=== PATIENT | female | born 2000 | race Caucasian/White ===

== ENCOUNTER 2021-01-27 17:08 | Emergency (ER) | payer OTHER, SELFPAY ==
[2021-01-27 17:08] VITALS: BP 111/83; PULSE 84; RESP 16; TEMP 36.1; O2SAT 96
--- NOTE | 2021-01-27 17:29 | DI.RAD.S_ITS ---
PROCEDURE: XR FOOT RT 2V INDICATIONS: knee gave out and now both right knee and right foot hurt TECHNIQUE: 3 views of the foot were acquired. COMPARISON: [facility], CR, XR KNEE RT 3V, 01/27/2021, 17:30. FINDINGS: Bones: No fractures or dislocations. No suspicious bony lesions. Soft tissues: No tibiotalar joint effusion. Achilles tendon appears normal. IMPRESSION: Normal. Dictated by: Tomer Ham M.D. on 01/27/2021 at 16:47 Approved by: Tomer Ham M.D. on 01/27/2021 at 16:48
--- NOTE | 2021-01-27 17:29 | DI.RAD.S_ITS ---
PROCEDURE: XR KNEE RT 3V INDICATIONS: knee gave out and now both right knee and right foot hurt TECHNIQUE: 3 views of the knee were acquired. COMPARISON: None. FINDINGS: Bones: No fractures or dislocations. No suspicious bony lesions. Soft tissues: There is a small joint effusion. No suspicious soft tissue calcifications. IMPRESSION: Small joint effusion, without a focal bony abnormality seen. If it would be helpful for clinical management decision making, please consider a dedicated, scheduled knee MRI for further evaluation (assuming that there is no contraindication). Dictated by: Tomer Ham M.D. on 01/27/2021 at 16:46 Approved by: Tomer Ham M.D. on 01/27/2021 at 16:47
--- NOTE | 2021-01-27 18:47 | ED_ITS ---
HPI - Extremity Injury (Lower) General Chief Complaint: Extremity Injury, Lower Stated Complaint: RIGHT KNEE AND FOOT PAIN Time Seen by Provider: 01/27/21 17:58 Source: patient Mode of arrival: Ambulatory History of Present Illness HPI Narrative: 20F nonsmoker presents with her significant other and a chief complaint of right knee and foot pain since injuring herself on Thursday. She states that she was squatting down doing laundry and upon standing up felt pain in her right knee in 1 to stepped awkwardly and felt increasing pain when her leg gave. She also injured the right lateral side of her foot during this incident. Since then she has had pain with ambulation over her lateral foot and pain in her lateral knee with occasional popping with ambulation. She denies any numbness, tingling or weakness. She denies any sensation of instability of her knee. She denies other injury nor history of the same. Related Data Allergies Allergy/AdvReac Type Severity Reaction Status Date / Time sumatriptan Allergy Unknown Verified 01/27/21 17:49 Review of Systems Review of Systems Narrative: GENERAL: Denies chills, fatigue, malaise, fever, sweats. HEENT: Denies sinus pain, ear pain, sore throat, difficulty swallowing, dizziness. RESPIRATORY: Denies dyspnea, cough, wheezing, hemoptysis, sputum. CARDIOVASCULAR: Denies chest pain, palpitations, orthopnea, edema, GASTROINTESTINAL: Denies nausea, vomiting, abdominal pain, diarrhea, constipation, melena. : Denies dysuria, frequency, incontinence, hematuria, urinary retention. MUSCULOSKELETAL: See HPI SKIN: Denies rash, skin lesions, or other NEUROLOGIC: Denies weakness, headache, numbness, change in speech, confusion, seizures, incoordination. PSYCHIATRIC: No concerning psychosocial issues. 12 point review of systems is negative except for those stated above Patient History Social History Smoking Status: Never smoker Smoking Status: Never smoker Substance Use Type: does not use Exam Narrative Exam Narrative: GEN: AOx3 and in mild distress EYES: Pupils are equal, round, and reactive to light and accommodation. Extraoccular muscles are intact bilaterally. There is no subconjunctival hemorrhage or exudate. CHEST: Lungs are clear to auscultation bilaterally and free of wheezes, rales, or rhonchi. Heart rate is regular rhythm, there are no murmurs, clicks, rubs, or gallops. There is no chest wall tenderness. ABD: Abdomen is soft and nontender. There is no guarding or rebound. Bowel sounds are normal in all 4 quadrants. There is no mass or organomegaly. EXT: Full but painful range of motion of right knee without obvious deformity, effusion, warmth or erythema. No ligamentous instability noted. Majority of pain is lateral joint line. Greg's test worsens pain in lateral knee. No pain or swelling in calf, Achilles is intact. No pain with calf squeeze. She does have some pain with palpation along lateral foot but no swelling or ecchymosis. No numbness or tingling present SKIN: Warm, pink, and dry. No erythema or rash Initial Vital Signs Initial Vital Signs: Vital Signs Temperature 97.0 F L 01/27/21 17:08 Pulse Rate 84 01/27/21 17:08 Respiratory Rate 16 01/27/21 17:08 Blood Pressure 111/83 01/27/21 17:08 Pulse Oximetry 96 01/27/21 17:08 Procedures Orthopedic Splinting/Casting Injury #1: Side: right Lower Extremity Injury Location: foot Lower Extremity Immobilizer: post-op shoe Course Orders Ordered: ED Orders 01/27/21 17:29 XR foot RT 2V Stat XR knee RT 3V Stat Vital Signs Vital signs: Vital Signs - 8 hr 01/27/21 17:08 01/27/21 19:11 Temperature 97.0 F L Pulse Rate 84 81 Respiratory Rate 16 18 Blood Pressure 111/83 103/70 Pulse Oximetry 96 100 MDM - Extremity Injury (Lower) Imaging Data Extremity x-ray #1: Radiologist's Impression: [address] [address] XRay Report Signed Patient: Jennifer Colmenares MR#: [id number] : 2000 Acct:[id number] Age/Sex: 20 / F Date of Service: 01/27/21 Loc: ED Accession Number: [id number] ?? Procedure: XR foot RT 2V Ordering Provider: Real Tejada D.O. PROCEDURE:? XR FOOT RT 2V ? INDICATIONS:? knee gave out and now both right knee and right foot hurt ? TECHNIQUE:? 3 views of the foot were acquired.? ? COMPARISON:? [facility], CR, XR KNEE RT 3V, 01/27/2021, 17:30. ? FINDINGS:? ? Bones:? No fractures or dislocations.? No suspicious bony lesions.? ? Soft tissues:? No tibiotalar joint effusion.? Achilles tendon appears normal.? ? ? IMPRESSION:? Normal. ? ? Dictated by: Tomer Ham M.D. on 01/27/2021 at 16:47 ? ? Approved by: Tomer Ham M.D. on 01/27/2021 at 16:48 ? Extremity x-ray #2: Radiologist's Impression: Chart Viewer Diagnostics Subcategory All Activity ??:?? All Time ??:?? All Subcategories Filter Laboratory Imaging Microbiology Pathology Blood Bank Tests Cardiovascular Other Specialty DATE TYPE STATUS REF RANGE/AUTHOR Hx Today 17:29 Knee X-Ray Signed Tomer Ham Today 17:29 Foot X-Ray Signed Tomer Ham Jennifer Colmenares 20, F?2000 MRN#? [id number] DEP ER,?Main ED??? 68.946kg ? Extremity Injury, Lower Acc#? [id number] Resus Status Not Ordered No Hx Avail Special Indicators No Data to Display Home Meds Prescription Monitoring Program No Data to Display Allergies sumatriptan Problems ? ONSET Knee Injury Foot sprain Vital Signs Growth Chart Today 19:11 BP 103/70? Pulse 81? Resp 18? O2 Sat 100? Diagnostics Reports Jennifer Colmenares??20??F??2000 ? Allergy/Adv: sumatriptan Close Knee X-Ray (Signed) FatoumataTomer - 01/27/21 Foot X-Ray (Signed) Tomer Ham - 01/27/21 Launch?Image [address] [address] XRay Report Signed Patient: Jennifer Colmenares MR#: [id number] : 2000 Acct:[id number] Age/Sex: 20 / F Date of Service: 01/27/21 Loc: ED Accession Number: [id number] ?? Procedure: XR knee RT 3V Ordering Provider: Real Tejada D.O. PROCEDURE:? XR KNEE RT 3V ? INDICATIONS:? knee gave out and now both right knee and right foot hurt ? TECHNIQUE:? 3 views of the knee were acquired.? ? COMPARISON:? None. ? FINDINGS:? ? Bones:? No fractures or dislocations.? No suspicious bony lesions.? ? Soft tissues:? There is a small joint effusion.? No suspicious soft tissue calcifications.? ? ? IMPRESSION:? Small joint effusion, without a focal bony abnormality seen. ? If it would be helpful for clinical management decision making, please consider a dedicated, scheduled knee MRI for further evaluation (assuming that there is no contraindication).? ? ? Dictated by: Tomer Ham M.D. on 01/27/2021 at 16:46 ? ? Approved by: Tomer Ham M.D. on 01/27/2021 at 16:47 ? MDM Narrative Medical decision making narrative: Patient with very reassuring physical exam, no evidence of ligamentous rupture, fracture or dislocation. Patient feels better with the splint, has been given return precautions and questions answered to her apparent satisfaction Discharge Plan Departure Patient Disposition: Home Clinical Impression: Knee Injury Qualifiers: Encounter type: initial encounter Laterality: right Qualified Code(s): S89.91XA - Unspecified injury of right lower leg, initial encounter Foot sprain Qualifiers: Encounter type: initial encounter Laterality: right Qualified Code(s): S93.601A - Unspecified sprain of right foot, initial encounter Instructions: DI for Knee Sprain Activity Restrictions/Additional Instructions: *You have been diagnosed with [right knee and foot sprain. Physical exam and x- rays are very reassuring and there is no fracture or dislocation noted *What to do: *Please continue to take your regular medications as directed. [ ] New medication prescriptions sent to your pharmacy: [ ] [ ] New medication written as a paper prescription [ x] No new medications given *Please follow up with your primary care provider in 2-3 days, call for an appointment. Let them know you were seen in the Emergency Department and that we ask that you be seen in follow up. We will electronically transmit a record of today's note if your PCP is in our system *If you do not have a primary care provider please contact the [facility] Resource line at [phone]. They will ask some questions about your medical history and help get you set up with a doctor in the community. *Return to Emergency Department if you should have any new, worsening or concerning symptoms, such as [fever greater than 101 F, shaking chills, worsening pain, persistent vomiting or other bothersome symptoms] Referrals: [facility] [Outside]
[2021-01-27 19:11] VITALS: BP 103/70; PULSE 81; RESP 18; O2SAT 100
== END 2021-01-27 19:13 | disposition home or self-care (01) ==
PROVIDERS: Emergency Provider Emergency Medicine
DX: S89.91XA Unspecified injury of right lower leg, initial encounter (principal); S93.601A Unspecified sprain of right foot, initial encounter
CPT/HCPCS: 73562; 73620; 99283

== ENCOUNTER → 2021-04-20 10:05 | Outpatient (CLI) | payer OTHER, SELFPAY ==
--- NOTE | 2021-04-20 10:06 | DI.MRI.S_ITS ---
PROCEDURE: MR KNEE RT WO CON INDICATIONS: Pain in right knee TECHNIQUE: Noncontrast sagittal PD fast spin echo and T2 fast spin echo with fat saturation, sagittal 3-D FLASH with fat saturation; coronal T1 spin echo and PD fast spin echo with fat saturation, and axial PD fast spin echo with fat saturation through the knee. COMPARISON: [facility], CR, XR KNEE RT 3V, 01/27/2021, 17:30. FINDINGS: Image quality: Excellent. Menisci: The medial and lateral menisci demonstrate normal morphology and internal signal. The meniscal root ligaments appear intact. Cruciate ligaments: The anterior and posterior cruciate ligaments appear intact. Medial structures: The medial collateral ligament appears intact. The posterior oblique ligament, semimembranosus tendon insertions, oblique popliteal ligament, and meniscocapsular junction appear intact. Visualized portions of the pes anserinus tendons appear normal. No abnormal bursal fluid. Lateral structures: The lateral collateral ligament, long and short heads of the biceps femoris tendon appear intact. The popliteus tendon appears normal; the popliteofibular ligament appears intact. The posterosuperior and anteroinferior popliteomeniscal fascicles appear intact. The arcuate and fabellofibular ligaments appear intact, on either side of the lateral inferior geniculate artery. Iliotibial band appears normal. Anterior structures: The quadriceps and patellar tendons appear intact. Patellar alignment is normal. No femoral trochlear dysplasia or ventral trochlear prominence. No edema in the infrapatellar fat pad. Bones and cartilage: No bone marrow contusions or fractures. The cartilage of the medial and lateral femorotibial compartments appears normal in thickness. Focal thinning and fissuring of the patellar articular cartilage (series 6, images 9-10). Joint space: There is physiologic knee joint fluid. No Cardozo's cyst. Normal appearing synovial plicae are incidentally noted. IMPRESSION: 1. Patellar chondromalacia. 2. No internal derangement. Dictated by: Klaudia Gonzales MD, PhD on 04/22/2021 at 9:20 Approved by: Klaudia Gonzales MD, PhD on 04/22/2021 at 10:32
== END ==
DX: M22.41 Chondromalacia patellae, right knee (principal); M25.561 Pain in right knee
CPT/HCPCS: 73721

== ENCOUNTER 2021-04-28 21:57 | Emergency (ER) | payer OTHER, SELFPAY ==
[2021-04-28 22:09] VITALS: BP 116/74; PULSE 74; RESP 16; TEMP 36.9; O2SAT 95; BMI 26.6
--- NOTE | 2021-04-28 22:31 | ED_ITS ---
HPI - Wound/Laceration General Chief Complaint: Wound/Laceration Stated Complaint: Sliced LT finger Time Seen by Provider: 04/28/21 22:26 Source: patient Mode of arrival: Ambulatory History of Present Illness HPI narrative: Patient is a 20-year-old female who presents with left middle finger laceration. She was cutting food is in she cut the nail of the middle finger. Not on any antiplatelet or anticoagulation medication tetanus up-to-date. Nursing hotline told her to come to ED for evaluation. No numbness tingling or weakness. Related Data Allergies Allergy/AdvReac Type Severity Reaction Status Date / Time sumatriptan Allergy Unknown Verified 01/27/21 17:49 Review of Systems Review of Systems Narrative: GENERAL: Denies chills,fever HEENT: Denies throat pain RESPIRATORY: Denies dyspnea, cough, wheezing CARDIOVASCULAR: Denies chest pain, palpitations GASTROINTESTINAL: Denies nausea, vomiting MUSCULOSKELETAL: Denies extremity pain, injury SKIN: see HPI NEUROLOGIC: Denies weakness, dizziness, headache, numbness 8 point review of systems is negative except for those stated above and HPI Patient History Social History Smoking Status: Never smoker Smoking Status: Never smoker alcohol intake frequency: 0-2 drinks per day Substance Use Type: does not use Exam Initial Vital Signs Initial Vital Signs: Vital Signs Temperature 98.4 F 04/28/21 22:09 Pulse Rate 74 04/28/21 22:09 Respiratory Rate 16 04/28/21 22:09 Blood Pressure 116/74 04/28/21 22:09 Pulse Oximetry 95 04/28/21 22:09 GENERAL: Well-appearing, well-nourished and in no acute distress. CARDIOVASCULAR: peripheral pulses in tact, cap refill <2 sec RESPIRATORY: No respiratory distress, speaks in full sentences without diffi culty EXTREMITIES: Normal range of motion, no clubbing or edema. Neurovascularly intact NEUROLOGICAL: Cranial nerves II through XII grossly intact. Normal gait and speech. SKIN: left middle finger laceration pain nail bed very small Course Vital Signs Vital signs: Vital Signs - 8 hr 04/28/21 22:09 Temperature 98.4 F Pulse Rate 74 Respiratory Rate 16 Blood Pressure 116/74 Pulse Oximetry 95 MDM - Wound/Laceration MDM Narrative Medical decision making narrative: Band-Aid is placed. Minimal involvement of the nail. Distal and no need for nail removal at this time. The laceration is very superficial and bleeding controlled. Discharge Plan Departure Patient Disposition: Home Clinical Impression: Laceration Instructions: DI for Minor Laceration Activity Restrictions/Additional Instructions: *You have been diagnosed with left middle finger superficial laceration *What to do: At this time please cover with Band-Aid. Nail will eventually fall off. No indication for any further treatment. *Continue to take medications as directed Tylenol or Motrin as directed if needed for pain *Follow up with your primary care provider in 2-3 days or call [phone] *Return to ER if you should have redness, drainage, swelling, or any new, worsening or concerning symptoms Referrals: Alexander Loomis MD [Primary Care Provider] -
== END 2021-04-28 22:43 | disposition home or self-care (01) ==
PROVIDERS: Emergency Provider Emergency Medicine
DX: S61.313A Laceration without foreign body of left middle finger with damage to nail, initial encounter (principal); W26.0XXA Contact with knife, initial encounter
CPT/HCPCS: 99281; 99282

== ENCOUNTER 2021-05-25 21:05 | Emergency (ER) | payer OTHER, SELFPAY ==
[2021-05-25 21:16] VITALS: BP 137/79; PULSE 100; RESP 16; TEMP 37.3; O2SAT 98; BMI 26.6
--- NOTE | 2021-05-25 21:23 | ED_ITS ---
HPI - Headache General Chief Complaint: Headache Stated Complaint: severe migraine Time Seen by Provider: 05/25/21 21:23 Mode of arrival: Ambulatory History of Present Illness HPI Narrative: 21-year-old female nonsmoker with history of migraines presents with her significant other and a chief complaint of a severe headache that has been gradually worsening for the past 4 days. It is squeezing and quite intense. She states that it is worse with bright lights and loud noise and has had improvement in quiet dark rooms. She has been nauseated but denies any vomiting. Of she states it feels similar to prior migraines though slightly more intense. She took Fioricet at home with minimal relief. She currently rates it a 9 or 10. She denies any recent trauma or injuries. She has no fever or chills and denies any neck pain. She denies focal neurologic findings such as blurred vision, trouble speech or extremity weakness, numbness or tingling. She has had no chest pain or shortness of breath. She denies exposure to persons with known or suspected COVID, she is fully vaccinated against COVID Related Data Allergies Allergy/AdvReac Type Severity Reaction Status Date / Time sumatriptan Allergy Unknown Verified 01/27/21 17:49 Review of Systems Review of Systems Narrative: GENERAL: Denies chills, fatigue, malaise, fever, sweats. HEENT: Denies sinus pain, ear pain, sore throat, difficulty swallowing, dizziness. RESPIRATORY: Denies dyspnea, cough, wheezing, hemoptysis, sputum. CARDIOVASCULAR: Denies chest pain, palpitations, orthopnea, edema, GASTROINTESTINAL: See HPI : Denies dysuria, frequency, incontinence, hematuria, urinary retention. MUSCULOSKELETAL: denies weakness, joint pain, or bony pain SKIN: Denies rash, skin lesions, or other NEUROLOGIC: See HPI PSYCHIATRIC: No concerning psychosocial issues. 12 point review of systems is negative except for those stated above Patient History Social History Smoking Status: Never smoker Smoking Status: Never smoker alcohol intake frequency: 0-2 drinks per day Substance Use Type: does not use Exam Narrative Exam Narrative: GENERAL: [21 year old patient appears stated age. Well-developed patient, in mild distress. Obviously uncomfortable, sitting in a dark room with maddox pulled over her eyes HEAD: Atraumatic. Normocephalic. EYES: Pupils equal round and reactive. Extraocular motions intact. No scleral icterus. No injection or drainage. ENT: Nose without bleeding, purulent drainage. Throat without erythema, tonsillar hypertrophy or exudate. Airway patent. NECK: Trachea midline. Non tender, no meningeal signs CARDIOVASCULAR: Regular rate and rhythm without murmurs, gallops, or rubs. RESPIRATORY: Clear to auscultation. Breath sounds equal bilaterally. No wheezes, rales, or rhonchi. GASTROINTESTINAL: Abdomen soft, non-tender, nondistended. EXTREMITIES: No edema or joint tenderness. BACK: Nontender without deformity or crepitance. No flank tenderness. NEURO: AOx3. SKIN: No rash or erythema of visible areas NIH Stroke Scale 1a. LOC: Patient is alert and keenly responsive (0) 1b. LOC Questions: Patient answers both LOC questions accurately (0) 1c. LOC Commands: Patient performs both tasks correctly (0) 2. Best Gaze: Normal (0) 3. Visual: No visual loss (0) 4. Facial palsy: Normal symmetrical movements (0) 5. Motor arm: No drift (0) 6. Motor leg: No drift (0) 7. Limb ataxia: Absent (0) 8. Sensory: Normal (0) 9. Best language: No aphasia; normal (0) 10. Dysarthria: Normal (0) 11. Extinction and inattention: No abnormality (0) NIHSS: 0 Initial Vital Signs Initial Vital Signs: Vital Signs Temperature 99.2 F 05/25/21 21:16 Pulse Rate 100 H 05/25/21 21:16 Respiratory Rate 16 05/25/21 21:16 Blood Pressure 137/79 05/25/21 21:16 Pulse Oximetry 98 05/25/21 21:16 Course Orders Ordered: ED Orders 05/25/21 21:18 COVID19 -Nasal swab/Pre-Proc Stat Discontinued Medications Dexamethasone (Dexamethasone 10 Mg/Ml Vial) 10 mg IV NOW ONE Stop: 05/25/21 21:25 Last Admin: 05/25/21 21:38 Dose: 10 mg Documented by: DAMON Diphenhydramine HCl (Diphenhydramine 50 Mg/Ml Vial) 25 mg IV NOW ONE Stop: 05/25/21 21:25 Last Admin: 05/25/21 21:36 Dose: 25 mg Documented by: DAMON Sodium Chloride (Normal Saline 0.9%) 1,000 mls @ 1,000 mls/hr IV BOLUS ONE Stop: 05/25/21 22:23 Last Admin: 05/25/21 21:35 Dose: 1,000 mls/hr Documented by: DAMON Ketorolac Tromethamine (Ketorolac 30 Mg/Ml Vial) 15 mg IV NOW ONE Stop: 05/25/21 21:25 Last Admin: 05/25/21 21:37 Dose: 15 mg Documented by: DAMON Metoclopramide HCl (Metoclopramide 10 Mg/2 Ml Inj) 10 mg IV NOW ONE Stop: 05/25/21 21:25 Last Admin: 05/25/21 21:39 Dose: Not Given Documented by: DAMON Metoclopramide HCl (Metoclopramide 10 Mg/2 Ml Inj) 10 mg IV NOW ONE Stop: 05/25/21 21:31 Last Admin: 05/25/21 21:35 Dose: 10 mg Documented by: DAMON Vital Signs Vital signs: Vital Signs - 8 hr 05/25/21 21:16 05/25/21 21:51 05/25/21 22:00 Temperature 99.2 F Pulse Rate 100 H 84 77 Respiratory Rate 16 Blood Pressure 137/79 130/70 118/73 Pulse Oximetry 98 99 99 MDM - Headache Lab Data Labs: Lab Results 05/25/21 Range/Units 21:18 SARS-CoV-2 (PCR) Positive H (Negative) MDM Narrative Medical decision making narrative: Headache considerations include, but not limited to: Subarachnoid hemorrhage, but unlikely as patient denies sudden onset of pain, not worst of life, or neck pain Meningitis considered, but thought unlikely given lack of Brudzinski's, Kernig's sign, altered mental status or fever Giant cell arteritis considered, but thought unlikely given lack of unilateral findings, pain in amish, vision change HTN Emergency considered, but thought unlikely given normal vitals Other serious diagnoses considered unlikely given lack of red flag findings such as sudden onset, increasing frequency, immunocompromise, systemic signs (fever, chills, stiff neck, or rash), focal neurologic findings, trauma, blood thinners, etc. Discharge Plan Departure Patient Disposition: Home Clinical Impression: Migraine, COVID Instructions: DI for COVID-19 (Suspected or Confirmed ) Activity Restrictions/Additional Instructions: *You have been diagnosed with [ COVID-19] *What to do: * per recommendations from the CDC and the [facility] Department of Health * stay home except to get medical care. Restrict activities outside your home, except for getting medical care. Do not go to work, school, or public areas. Avoid using public transportation, ride sharing, or taxis. * separate yourself from other people in your home. * call ahead before visiting your doctor * Wear a facemask * Cover your coughs and sneezes * Clean your hands often * Avoid sharing household items * Clean all high-touch services every day * Monitor your symptoms and seek prompt medical attention if your illness i s worsening, particularly with difficulty in breathing. You may discontinue your isolation when: 1. You have been fever-free for at least 24 hours without the use of fever reducing medication, AND 2. Your symptoms are getting better 3. At least 5 days have passed since symptoms first appeared 4. If you have fever, continue to stay home until fever resolves Individuals with laboratory confirmed COVID-19 who have not had any symptoms may discontinue home isolation when at least 5 days have passed since the date of their first COVID-19 diagnostic test and have had no subsequent illness Referrals: Alexander Loomis MD [Primary Care Provider] -
[2021-05-25] MEDS: SODIUM CHLORIDE 0.9% 1,000 ML 1000 ML IV (21:35)
[2021-05-25] MEDS: METOCLOPRAMIDE 10 MG/2 ML INJ IV (21:35)
[2021-05-25] MEDS: diphenhydrAMINE 50 MG/ML VIAL 25 MG IV (21:36)
[2021-05-25] MEDS: KETOROLAC 30 MG/ML VIAL 15 MG IV (21:37)
[2021-05-25] MEDS: DEXAMETHASONE 10 MG/ML VIAL IV (21:38)
[2021-05-25 21:50] LABS: COVID19 -Nasal RAPID POSITIVE (Negative)
[2021-05-25 21:51] VITALS: BP 130/70; PULSE 84; O2SAT 99
[2021-05-25 22:00] VITALS: BP 118/73; PULSE 77; O2SAT 99
[2021-05-25 22:39] VITALS: BP 112/56; PULSE 79; RESP 16; O2SAT 97
== END 2021-05-25 23:20 | disposition home or self-care (01) ==
PROVIDERS: Emergency Provider Emergency Medicine
DX: U07.1 COVID-19 (principal); G43.909 Migraine, unspecified, not intractable, without status migrainosus
CPT/HCPCS: 36415; 87635; 96374; 96375; 99284; C9803; J1100; J1200; J1885; J2765

== ENCOUNTER 2021-09-12 23:42 | Emergency (ER) | payer OTHER, SELFPAY ==
[2021-09-12 23:52] VITALS: BP 140/75; PULSE 80; RESP 15; TEMP 36.4; O2SAT 100; BMI 27.9
--- NOTE | 2021-09-12 23:57 | DI.US.S_ITS ---
PROCEDURE: US OB <= 14 WEEKS FETUS INDICATIONS: 11 weeks ega with vag bleeding OUTSIDE/PRIOR DATING DATA: Last menstrual period (LMP): 06/28/2021. LMP-based estimated date of delivery (PJ): 04/04/2022. First dating scan (date and location): 09/13/2021. Estimated date of delivery (PJ) from first dating scan: 04/03/2022. TECHNIQUE: Real-time scanning was performed of the fetus and maternal pelvic organs, with image documentation. Endovaginal scanning was also performed to better visualize the fetus and maternal ovaries. COMPARISON: None. FINDINGS: Embryo: There is a single intrauterine with a gestational sac, yolk sac, and pole visualized. The crown-rump length measures approximately 4.3 cm corresponding to a gestational age of 11 weeks 1 day and estimated delivery date of 04/03/2022. There is heart motion with a rate of 150 beats per minute. No associated perigestational subchorionic hematoma. No subchorionic hematoma identified. Maternal organs: Ovaries appear within normal size limits. No adnexal masses. IMPRESSION: 1. Single living intrauterine with calculated gestational age of 11 weeks 1 day corresponding to an estimated delivery date of 03/14/2022. We strive to produce accurate, complete, and clear reports of imaging services. To assist us in improving patient care, this report was composed using standard report templates and voice recognition software. Therefore, it may contain abnormal punctuation, insertions and/or omissions. Occasional wrong-word or sound-alike substitutions may occur. Though we review the report and make efforts to correct it, we do recommend that the report be read carefully in proper context to recognize any text inaccuracies. Dictated by: Cuba Vilalnueva M.D. on 09/13/2021 at 1:32 Approved by: Cuba Villanueva M.D. on 09/13/2021 at 1:37
[2021-09-13 00:34] LABS: Add Manual Diff / Slide Review NO; Basophils Absolute Auto 0 /uL (0-100); Basophils Percent Auto 0.2 % (0-2); Eosinophils Absolute Auto 100 /uL (0-450); Eosinophils Percent Auto 0.6 % (2-4); Hematocrit 38.2 % (36-46); Hemoglobin 13.7 g/dL (12.0-16.0); Lymphocytes Absolute Auto 1800 /uL (1100-4500); Mean Corpuscular HGB Conc 35.8 % (30-36); Mean Corpuscular Hemoglobin 30.1 PG (26-34); Mean Corpuscular Volume 84.1 fL (80-100); Monocytes Absolute Auto 500 /uL (0-900); Monocytes Percent Auto 4.9 % (3-14); Neutrophils Absolute Auto 8000 /uL (1500-7000); Neutrophils Percent Auto 77.3 % (50-75); Platelet Count 223 X10^3/uL (150-400); Red Blood Cell Count 4.55 X10^6/uL (4.0-5.2); Red Cell Distribution Width 13.1 % (11.6-14.8); White Blood Cell Count 10.3 X10^3/uL (4.5-11.0)
[2021-09-13 00:39] LABS: BUN Creatinine Ratio 16.9 (6-22); Blood Urea Nitrogen 10 mg/dL (7-17); Calcium 9.1 mg/dL (8.4-10.2); Carbon Dioxide 24 mmol/L (22-32); Chloride 104 mmol/L (98-107); Estimated Glomerular Filt Rate > 60 mL/min (>60); Glucose 94 mg/dL (70-100); HEMOLYSIS 16 (0-50); Potassium 3.4 mmol/L (3.4-5.1); Sodium 137 mmol/L (137-145)
[2021-09-13 01:05] LABS: HCG Quantitative /Beta subunit 39101 mIU/mL
[2021-09-13 01:15] VITALS: PULSE 88
[2021-09-13 01:16] VITALS: BP 120/55; PULSE 87; O2SAT 98
--- NOTE | 2021-09-13 01:55 | ED_ITS ---
HPI - General Adult General Chief complaint: OB/Uterine Contractions Stated complaint: 11 WEEKS BLEEDING Time Seen by Provider: 09/12/21 23:56 Source: patient Mode of arrival: Ambulatory Limitations: no limitations History of Present Illness HPI narrative: Patient is a 21-year-old at approximately 11 weeks EGA who is here for evaluation of vaginal bleeding. States that earlier today she started to have vaginal bleeding. She has had some abdominal cramping. No fevers. No urinary symptoms. No change in bowel habits. No vomiting. Has yet to have an appointment with Ob however this is scheduled for approximately 1 week from now. She reports the time my exam that the symptoms have improved somewhat but is still having some light spotting. Related Data Allergies Allergy/AdvReac Type Severity Reaction Status Date / Time sumatriptan Allergy Unknown Verified 01/27/21 17:49 Review of Systems Constitutional Constitutional: Reports system reviewed and no additional complaints, except as documented Gastrointestinal Gastrointestinal: Reports as per HPI and Reports system reviewed and no addition al complaints, except as documented Genitourinary Genitourinary: Reports system reviewed and no additional complaints, except as documented and Reports as per HPI Hematologic/Lymphatic On Anticoagulants: No Patient History Medical History COVID Social History Smoking Status: Never smoker Smoking Status: Never smoker alcohol intake frequency: 0-2 drinks per day Substance Use Type: does not use Exam Initial Vital Signs Initial Vital Signs: Vital Signs Temperature 97.5 F L 09/12/21 23:52 Pulse Rate 80 09/12/21 23:52 Respiratory Rate 15 09/12/21 23:52 Blood Pressure 140/75 09/12/21 23:52 Pulse Oximetry 100 09/12/21 23:52 HENMT Head: normal to inspection and normocephalic Resp Effort & Inspection: normal respiratory effort Cardio Rate: regular rate GI Inspection: normal to inspection and non-distended Palpation: soft, No firm, No guarding and No tender Skin General: no rashes or lesions noted Neuro General: patient alert, patient awake and moves all extremities Extrem General: capillary refill normal Course Orders Ordered: ED Orders 09/12/21 23:56 ABO RH Type Stat Complete Blood Count AUTO DIFF Stat 09/12/21 23:57 US OB <= 14 weeks fetus Stat Basic Metabolic Panel Stat HCG Quantitative /Beta subunit Stat Vital Signs Vital signs: Vital Signs - 8 hr 09/12/21 23:52 09/13/21 01:15 09/13/21 01:16 Temperature 97.5 F L Pulse Rate 80 88 87 Respiratory Rate 15 Blood Pressure 140/75 120/55 L Pulse Oximetry 100 98 Medical Decision Making Medical Records Medical records reviewed: Yes I reviewed the patient's medical records. Lab Data Lab results reviewed: Yes I reviewed the patient's lab results. Result diagrams: 09/13/21 00:10 09/13/21 00:10 Labs: Lab Results 09/13/21 09/13/21 09/13/21 Range/Units 00:10 00:10 00:10 WBC 10.3 (4.5-11.0) X10^3/uL RBC 4.55 (4.0-5.2) X10^6/uL Hgb 13.7 (12.0-16.0) g/dL Hct 38.2 (36-46) % MCV 84.1 (80-100) fL MCH 30.1 (26-34) PG MCHC 35.8 (30-36) % RDW 13.1 (11.6-14.8) % Plt Count 223 (150-400) X10^3/uL Neut % (Auto) 77.3 H (50-75) % Lymph % (Auto) 17.0 L (25-40) % Christian % (Auto) 4.9 (3-14) % Eos % (Auto) 0.6 L (2-4) % Baso % (Auto) 0.2 (0-2) % Neut # (Auto) 8000 H (6313-0284) /uL Lymph # (Auto) 1800 (6604-4662) /uL Christian # (Auto) 500 (0-900) /uL Eos # (Auto) 100 (0-450) /uL Baso # (Auto) 0 (0-100) /uL Sodium 137 (137-145) mmol/L Potassium 3.4 (3.4-5.1) mmol/L Chloride 104 (98-107) mmol/L Carbon Dioxide 24 (22-32) mmol/L BUN 10 (7-17) mg/dL Creatinine 0.59 (0.52-1.04) mg/dL Estimated GFR > 60 (>60) mL/min BUN/Creatinine Ratio 16.9 (6-22) Glucose 94 (70-100) mg/dL Calcium 9.1 (8.4-10.2) mg/dL HCG, Quant 18838 mIU/mL Blood Type O Positive Urine Dip Bedside Urine Glucose Negative Bedside Urine Bilirubin - Negative Bedside Urine Ketone - Negative Urine Specific [place] 1.010 Bedside Urine Occult Blood +++ Bedside Urine pH 6.0 Bedside Urine Protein - Negative Bedside Urine Urobilinogen - Negative Bedside Urine Nitrite - Negative Bedside Urine Leukocytes - Negative Esterase Point of care testing: Urine Dip Bedside Urine Glucose Negative Bedside Urine Bilirubin - Negative Bedside Urine Ketone - Negative Urine Specific [place] 1.010 Bedside Urine Occult Blood +++ Bedside Urine pH 6.0 Bedside Urine Protein - Negative Bedside Urine Urobilinogen - Negative Bedside Urine Nitrite - Negative Bedside Urine Leukocytes - Negative Esterase Imaging Data US - OB: Radiologist's Impression: [address] [address] Ultrasound Report Signed Patient: Jennifer Colmenares MR#: [id number] : 2000 Acct:[id number] Age/Sex: 21 / F Date of Service: 09/12/21 Loc: Accession Number: [id number] ?? Procedure: US OB <= 14 weeks fetus Ordering Provider: Real Tejada D.O. PROCEDURE:? US OB <= 14 WEEKS FETUS ? INDICATIONS:? 11 weeks ega with vag bleeding ? OUTSIDE/PRIOR DATING DATA:? Last menstrual period (LMP):? 06/28/2021.? LMP-based estimated date of delivery (PJ):? 04/04/2022.? First dating scan (date and location):? 09/13/2021.? Estimated date of delivery (PJ) from first dating scan:? 04/03/2022. ? TECHNIQUE:? Real-time scanning was performed of the fetus and maternal pelvic organs, with image documentation.? Endovaginal scanning was also performed to better visualize the fetus and maternal ovaries.? ? COMPARISON:? None. ? FINDINGS:? ? Embryo:? There is a single intrauterine with a gestational sac, yolk sac, and pole visualized.? The crown-rump length measures approximately 4.3 cm corresponding to a gestational age of 11 weeks 1 day and estimated delivery date of 04/03/2022.? There is heart motion with a rate of 150 beats per minute.? No associated perigestational subchorionic hematoma.? No subchorionic hematoma identified. ? Maternal organs:? Ovaries appear within normal size limits.? No adnexal masses. ? ? IMPRESSION:? ? 1.? Single living intrauterine with calculated gestational age of 11 weeks 1 day corresponding to an estimated delivery date of 03/14/2022. ? We strive to produce accurate, complete, and clear reports of imaging services. To assist us in improving patient care, this report was composed using standard report templates and voice recognition software. Therefore, it may contain abnormal punctuation, insertions and/or omissions. Occasional wrong-word or sound-alike substitutions may occur. Though we review the report and make efforts to correct it, we do recommend that the report be read carefully in proper context to recognize any text inaccuracies. ? ? ? Dictated by: Cuba Villanueva M.D. on 09/13/2021 at 1:32? ?? MDM Narrative Medical decision making narrative: Rh positive. Labs unremarkable. Ultrasound shows intrauterine at approximately 11 weeks EGA with cardiac activity. I did discuss the findings of the lab in the ultrasound with the patient. We discussed the possibility of a miscarriage verses a benign first-trimester bleeding. Will have her keep her scheduled OB appointment. No further workup required out of the emergency department. She was given return precautions. She expressed understanding and agreement. Discharge Plan Departure Patient Disposition: Home Clinical Impression: Threatened miscarriage Instructions: DI for Vaginal Bleeding During Activity Restrictions/Additional Instructions: I do recommend that you keep all of your scheduled medical appointments to i nclude your 1st OB appointment next week. Contact your primary doctor for follow-up. Return to the emergency department for any new or worsening symptoms. Referrals: Alexander Loomis MD [Primary Care Provider] -
== END 2021-09-13 02:10 | disposition home or self-care (01) ==
PROVIDERS: Emergency Provider Emergency Medicine
DX: O20.0 Threatened abortion (principal); Z3A.11 11 weeks gestation of pregnancy
CPT/HCPCS: 76801; 80048; 81003; 84702; 85025; 86900; 86901; 99281; 99283

== ENCOUNTER 2021-12-11 03:09 | Outpatient (CLI) | payer OTHER, SELFPAY | END 2021-12-11 04:10 | disposition home or self-care (01) | LOC: LABOR 03:13 → OB 11:37 | PROVIDERS: Referring Provider Nurse Practitioner Obstetrics & Gynecology; Visit Provider Nurse Practitioner Obstetrics & Gynecology | DX: O36.8120 Decreased fetal movements, second trimester, not applicable or unspecified (principal); Z3A.23 23 weeks gestation of pregnancy | CPT/HCPCS: 59025; G0378; G0379 ==

== ENCOUNTER → 2022-01-10 07:00 | Outpatient (CLI) | payer OTHER, SELFPAY ==
[2022-01-10 09:18] LABS: Hematocrit 31.2 % (36-46); Mean Corpuscular HGB Conc 35.4 % (30-36); Mean Corpuscular Hemoglobin 31.2 PG (26-34); Mean Corpuscular Volume 87.9 fL (80-100); Platelet Count 182 X10^3/uL (150-400); Red Blood Cell Count 3.54 X10^6/uL (4.0-5.2); Red Cell Distribution Width 13.5 % (11.6-14.8); White Blood Cell Count 8.8 X10^3/uL (4.5-11.0)
[2022-01-10 09:45] LABS: Glucose 1 Hour 169 mg/dL (70-170)
[2022-01-10 09:50] LABS: Glucose Tol Interpretation INTERPRETATION
[2022-01-10 09:51] LABS: Glucose Fasting 85 mg/dL (70-100)
[2022-01-10 11:02] LABS: Glucose 2 Hour 151 mg/dL (70-140)
== END ==
PROVIDERS: Referring Provider Nurse Practitioner Obstetrics & Gynecology; Visit Provider Nurse Practitioner Obstetrics & Gynecology
DX: Z34.90 Encounter for supervision of normal pregnancy, unspecified, unspecified trimester (principal); Z3A.26 26 weeks gestation of pregnancy
CPT/HCPCS: 36415; 82951; 82952; 85027

== ENCOUNTER 2022-01-21 18:04 | Outpatient (CLI) | payer OTHER, SELFPAY ==
--- NOTE | 2022-01-22 17:28 | PM.OBTRLD ---
Visit Information Visit Information Date of evaluation: 01/21/22 Primary OB Provider: Jo Ann Amado On-call OB Provider: Jo Ann Amado Reason for Evaluation: Yes other Comments/Additional reasons for admission: 21YO @ [id number] here for evaluation of decreased movement. Has been feeling movement, just less than normal. No cramping or VB. Uncomplicated PN care w/ CNM. Vital Signs Vital Signs: BP 115/74mmHg, HR 112, T 36.2C Temporal PFSH Medical History COVID Social History Smoking Status: Never smoker Review of Systems Review of Systems ROS: Yes All systems reviewed with the patient and are negative except as otherwise documented Exam Presentation: vertex Evaluation Evaluation Baseline heart rate: 140 Variability: Moderate (11-25) monitor accelerations: Present Monitor Decelerations: Absent Contraction Frequency (minutes): 0 Category of Tracing: Reactive Diagnosis, Plan/Disposition Final Diagnosis (1) Decreased movement: Status: Acute Plan/Disposition Plan: movement felt by patient during reactive NST. reassurance of normal given. RTC as previously scheduled. OB Disposition: home
== END 2022-01-21 18:43 | disposition home or self-care (01) ==
LOC: OB 01-24 08:31
PROVIDERS: Referring Provider Nurse Practitioner Obstetrics & Gynecology; Visit Provider Nurse Practitioner Obstetrics & Gynecology
DX: O36.8130 Decreased fetal movements, third trimester, not applicable or unspecified (principal); Z3A.29 29 weeks gestation of pregnancy
CPT/HCPCS: 59025; G0378; G0379

== ENCOUNTER 2022-03-06 20:03 | Emergency (ER) | payer OTHER, SELFPAY ==
[2022-03-06] VITALS (8 sets, daily range): BP systolic 112–132; BP diastolic 68–84; PULSE 83–105; RESP 18–22; TEMP 36.8–36.9; O2SAT 97–99; BMI 32.5
[2022-03-06 20:32] LABS: Add Manual Diff / Slide Review NO; Basophils Absolute Auto 0 /uL (0-100); Basophils Percent Auto 0.5 % (0-2); Eosinophils Absolute Auto 0 /uL (0-450); Eosinophils Percent Auto 0.4 % (2-4); Hematocrit 36.2 % (36-46); Hemoglobin 12.7 g/dL (12.0-16.0); Lymphocytes Absolute Auto 1000 /uL (1100-4500); Lymphocytes Percent Auto 12.2 % (25-40); Mean Corpuscular HGB Conc 35.1 % (30-36); Mean Corpuscular Hemoglobin 31.5 PG (26-34); Mean Corpuscular Volume 89.8 fL (80-100); Monocytes Absolute Auto 600 /uL (0-900); Monocytes Percent Auto 7.1 % (3-14); Neutrophils Absolute Auto 6800 /uL (1500-7000); Neutrophils Percent Auto 79.8 % (50-75); Platelet Count 176 X10^3/uL (150-400); Red Blood Cell Count 4.03 X10^6/uL (4.0-5.2); Red Cell Distribution Width 14.2 % (11.6-14.8); White Blood Cell Count 8.6 X10^3/uL (4.5-11.0)
--- NOTE | 2022-03-06 20:35 | ED_ITS ---
HPI - Chest Pain General Chief Complaint: Abdominal Pain Stated Complaint: CHEST PAIN Time Seen by Provider: 03/06/22 20:27 History of Present Illness HPI narrative: Patient here with . Complains of right greater than left anterior lower chest wall pain that started 3 hours ago while driving home from work. at bedside. Patient is 37 weeks due date is April 04, 2022. Patient denies any injury or strain to the chest wall. No history of blood clots in legs or lungs. No cardiac history. Has right lower anterior rib pain with movement touching and deep breath. No recent illness cough cold congestion fever chills. Patient in no distress. 97-98% room air. Respiration 22. Heart rate 105 which would be appropriate for . No hypertension or hypotension. Denies denies any abdominal pain at this time. No vaginal bleeding or blood show or fluid leak. Denies any pelvic pain. Still has movements. Patient did not take any medications daily for pain. heart tones 133. No personal or family history of DVTs or PEs. No recent immobilization. Patient has remained active. Denies any calf pain or calf swelling Related Data Home Medications Medication Instructions Recorded Confirmed Vitamin 1 tab PO DAILY 12/11/21 12/11/21 Allergies Allergy/AdvReac Type Severity Reaction Status Date / Time sumatriptan Allergy Unknown Verified 03/06/22 20:26 nickel Allergy Verified 03/06/22 20:26 Review of Systems Review of Systems Narrative: GENERAL: Denies chills, fatigue, malaise, fever, sweats. HEENT: Denies sinus pain, ear pain, sore throat RESPIRATORY: Denies dyspnea, cough CARDIOVASCULAR: Positive chest pain, negative palpitations GASTROINTESTINAL: Denies nausea, vomiting, abdominal pain : Denies dysuria, frequency, hematuria, negative vaginal bleeding or discharge/fluid leak MUSCULOSKELETAL: Positive muscle or bony pain SKIN: Denies rash, skin lesions NEUROLOGIC: Denies weakness, numbness ROS Unobtainable: All systems reviewed & are unremarkable except as noted in HPI and below Patient History Medical History COVID Social History Smoking Status: Never smoker Smoking Status: Never smoker alcohol intake frequency: 0-2 drinks per day Substance Use Type: does not use Exam Narrative Exam Narrative: GENERAL: in no distress, not toxic not dyspneic HEAD: Normocephalic. EYES: Pupils equal round No scleral icterus. ENT: Mucous membranes moist. NECK: Trachea midline. CARDIOVASCULAR: Regular rate and rhythm without murmurs, there is reproducible pain/tenderness on very light touch when I am touching right lower anterior ribs. This is much more tender/painful than compared to left at the same level. Does have pain with movement and deep breath. RESPIRATORY: Clear to auscultation. Breath sounds equal bilaterally. No wheezes, rales, or rhonchi. GASTROINTESTINAL: Abdomen soft, non-tender EXTREMITIES: No gross deformities. BACK: No flank tenderness. NEURO: AOx4. SKIN: Warm and dry PSYCH: Not anxious, is cooperative Initial Vital Signs Initial Vital Signs: Vital Signs Temperature 98.2 F 03/06/22 20:28 Pulse Rate 105 H 03/06/22 20:28 Respiratory Rate 22 03/06/22 20:28 Blood Pressure 132/84 03/06/22 20:28 Pulse Oximetry 98 03/06/22 20:28 Oxygen Delivery Method 03/06/22 20:28 Scores HEART Score Heart Score history: Slightly Suspicious Heart Score EKG: Normal Heart Score Age: < 45 years old Heart Score risk factors: No known risk factors Heart Score troponin: < or = to normal limit Heart Score Total: 0 Wells' Criteria for PE Clinical signs and symptoms of DVT: No PE is #1 Dx or equally likely: No Heart rate > 100: No Immobilization at least 3 days or surg in previous 4 weeks: No History of PE or DVT: No Hemoptysis: No Malignancy w/Treatment within 6 months or palliative: No Wells' PE Score total: 0 Course Course Course Narrative: No new issues during course of stay Orders Ordered: ED Orders 03/06/22 20:15 EKG-12 Lead Stat 03/06/22 20:24 Complete Blood Count AUTO DIFF Stat Comprehensive Metabolic Panel Stat Lipase Stat Magnesium Stat Troponin & CK Cardiac Panel Stat 03/06/22 22:29 Trop I [Troponin I] Stat Discontinued Medications Acetaminophen (Acetaminophen 325 Mg Tablet) 975 mg PO NOW ONE Stop: 03/06/22 20:35 Last Admin: 03/06/22 20:45 Dose: 975 mg Documented By: DILEEP Reevaluation(s) Reevaluation #1: Spoke with patient and . Patient lying comfortably supine. Blood pressure 112/68 heart rate 83 respiration 18 98.5 F 97% room air. Patient states Tylenol has helped. Does not have discomfort when not moving her chest wall. However does have some pain with deep breath only. Mild tenderness on palpation still but much better than before Tylenol. Reviewed results with them and at this time they are reassuring. Return precautions reviewed with them. They are to go to LD for NST testing now Time: 23:29 Consultations Consultation #1: Spoke with OBGYN, Dr. Mosqueda, agrees no D-dimer or any imaging indicated at this time. Vital signs are reassuring likely not dissection or aneurysm or gallbladder concern or pulmonary embolism. Patient's symptoms improved with Tylenol. She would like patient go to LD for NST Time: 23:27 Vital Signs Vital signs: Vital Signs - 8 hr 03/06/22 20:28 03/06/22 20:56 03/06/22 21:00 Temperature 98.2 F Pulse Rate 105 H 100 H 98 H Respiratory Rate 22 Blood Pressure 132/84 Pulse Oximetry 98 97 97 Oxygen Delivery Method Room Air Room Air 03/06/22 21:46 03/06/22 21:30 03/06/22 21:51 Temperature 98.5 F Pulse Rate 91 H 96 H Respiratory Rate Blood Pressure Pulse Oximetry 97 99 Oxygen Delivery Method Room Air Room Air 03/06/22 21:51 03/06/22 22:00 03/06/22 22:00 Temperature Pulse Rate 84 Respiratory Rate 18 Blood Pressure 114/77 115/72 Pulse Oximetry 98 Oxygen Delivery Method Room Air 03/06/22 22:30 03/06/22 22:30 Temperature Pulse Rate 83 Respiratory Rate Blood Pressure 112/68 Pulse Oximetry 97 Oxygen Delivery Method Room Air MDM - Chest Pain Differential Diagnosis Differential diagnosis: Likely stable angina, unstable angina pectoris, costochondritis, chest pain and other (Pleurisy/PE/aneurysm) Lab Data Result diagrams: 03/06/22 20:24 03/06/22 20:24 Labs: Lab Results 03/06/22 03/06/22 03/06/22 Range/Units 20:24 20:24 22:29 WBC 8.6 (4.5-11.0) X10^3/uL RBC 4.03 (4.0-5.2) X10^6/uL Hgb 12.7 (12.0-16.0) g/dL Hct 36.2 (36-46) % MCV 89.8 (80-100) fL MCH 31.5 (26-34) PG MCHC 35.1 (30-36) % RDW 14.2 (11.6-14.8) % Plt Count 176 (150-400) X10^3/uL Neut % (Auto) 79.8 H (50-75) % Lymph % (Auto) 12.2 L (25-40) % [place] % (Auto) 7.1 (3-14) % Eos % (Auto) 0.4 L (2-4) % Baso % (Auto) 0.5 (0-2) % Neut # (Auto) 6800 (5736-2292) /uL Lymph # (Auto) 1000 L (7669-3192) /uL [place] # (Auto) 600 (0-900) /uL Eos # (Auto) 0 (0-450) /uL Baso # (Auto) 0 (0-100) /uL Sodium 136 L (137-145) mmol/L Potassium 3.6 (3.4-5.1) mmol/L Chloride 105 (98-107) mmol/L Carbon Dioxide 20 L (22-32) mmol/L BUN 7 (7-17) mg/dL Creatinine 0.53 (0.52-1.04) mg/dL Estimated GFR > 60 (>60) mL/min BUN/Creatinine Ratio 13.2 (6-22) Glucose 83 (70-100) mg/dL Calcium 9.5 (8.4-10.2) mg/dL Magnesium 1.7 (1.6-2.3) mg/dL Total Bilirubin 0.4 (0.2-1.3) mg/dL AST 22 (14-36) IU/L ALT 18 (<35) IU/L Alkaline Phosphatase 107 (38-126) U/L Total Creatine Kinase 94 (30-135) U/L CK-MB (CK-2) TNP CK-MB (CK-2) Rel Index TNP Troponin I < 0.012 < 0.012 (0.01-0.034) ng/mL Total Protein 7.4 (6.3-8.2) g/dL Albumin 4.0 (3.5-5.0) g/dL Globulin 3.4 (1.7-4.1) g/dL Albumin/Globulin Ratio 1.2 (1.0-2.8) Lipase 67 (23-300) U/L Urine Dip Bedside Urine Glucose Negative Bedside Urine Bilirubin - Negative Bedside Urine Ketone - Negative Urine Specific [place] 1.030 Bedside Urine Occult Blood - Negative Bedside Urine pH 7.0 Bedside Urine Protein - Negative Bedside Urine Urobilinogen - Negative Bedside Urine Nitrite - Negative Bedside Urine Leukocytes - Negative Esterase ECG Data Interpretation: Normal sinus rhythm rate [address] elevation or depression. MDM Narrative Medical decision making narrative: At this time appropriate for no chest x-ray or D-dimer at this time. No CT scan imaging. Ultrasound. Clinically likely chest wall being source of pain. Apolinar josh did get some relief with Tylenol. Heart rate improved from 105 down to 98. Denies any back pain. Just lightly touching the chest wall caused pain. Patient has low heart score. As well as low PERC. Clinically not pulmonary embolism or aortic dissection or appendicitis or cholecystitis. No neuro deficits or complaints. No syncope. No dyspnea. Heart rate 83 blood pressure 112/68 and 97% room air respirations 18 at time of discharge Discharge Plan Departure Patient Disposition: Home Clinical Impression: Chest pain Instructions: DI for Atypical Chest Pain, DI for Costochondritis Activity Restrictions/Additional Instructions: Please go directly to labor and delivery floor for monitoring. Please continue Tylenol for discomfort in your chest. Today's exam reassuring and pain likely from the chest wall. However return immediately if any questions or concerns or pain trouble breathing or worsening symptoms. Prescriptions: No Action Vitamin 1 tab PO DAILY Visit Report Forms: Patient Portal/API
[2022-03-06] MEDS: ACETAMINOPHEN 325 MG TABLET 975 MG PO (20:45)
[2022-03-06 20:46] LABS: Alanine Aminotransferase 18 IU/L (<35); Albumin Globulin Ratio 1.2 (1.0-2.8); Alkaline Phosphatase 107 U/L (38-126); Aspartate Aminotransferase 22 IU/L (14-36); BUN Creatinine Ratio 13.2 (6-22); Bilirubin Total 0.4 mg/dL (0.2-1.3); Blood Urea Nitrogen 7 mg/dL (7-17); Calcium 9.5 mg/dL (8.4-10.2); Carbon Dioxide 20 mmol/L (22-32); Chloride 105 mmol/L (98-107); Creatine Kinase 94 U/L (30-135); Estimated Glomerular Filt Rate > 60 mL/min (>60); Globulin 3.4 g/dL (1.7-4.1); Glucose 83 mg/dL (70-100); HEMOLYSIS 17 (0-50); Lipase 67 U/L (23-300); Magnesium 1.7 mg/dL (1.6-2.3); Potassium 3.6 mmol/L (3.4-5.1); Sodium 136 mmol/L (137-145); Total Protein 7.4 g/dL (6.3-8.2)
[2022-03-06 20:58] LABS: Troponin I < 0.012 ng/mL (0.01-0.034)
[2022-03-06 23:01] LABS: Troponin I < 0.012 ng/mL (0.01-0.034)
--- NOTE | 2022-03-07 00:15 | PM.PROC.1 ---
Procedures Date/Time Date of procedure: 03/06/22 Time of procedure: 23:40 General Procedure description: 21YO @[id number] cleared from ER after evaluation of chest pain and sent to [facility] for monitoring. VS: BP 123/73, HR 88bpm, T 36.2C Temporal RNST from [id number]: Baselline FHR 125bpm, moderate variability, accels present, decels absent. Mild, irregular ctx on toco, not felt by patient. Reactive NST, not in labor Discharge to home
--- NOTE | 2022-03-07 00:15 | P.PCN_ITS ---
Procedures Date/Time Date of procedure: 03/06/22 Time of procedure: 23:40 General Procedure description: 21YO @[id number] cleared from ER after evaluation of chest pain and sent to [facility] for monitoring. VS: BP 123/73, HR 88bpm, T 36.2C Temporal RNST from [id number]: Baselline FHR 125bpm, moderate variability, accels present, decels absent. Mild, irregular ctx on toco, not felt by patient. Reactive NST, not in labor Discharge to home
== END 2022-03-06 23:30 | disposition home or self-care (01) ==
PROVIDERS: Emergency Provider Emergency Medicine
DX: R07.89 Other chest pain (principal)
CPT/HCPCS: 36415; 80053; 81003; 82550; 83690; 83735; 84484; 85025; 93005; 99283; 99284

== ENCOUNTER 2022-03-31 15:19 | Emergency (ER) | payer OTHER, SELFPAY ==
[2022-03-31] VITALS (8 sets, daily range): BP systolic 96–119; BP diastolic 59–76; PULSE 79–108; RESP 18–22; TEMP 37; O2SAT 97–99; BMI 32.5
[2022-03-31] MEDS: ACETAMINOPHEN 325 MG TABLET 975 MG PO (17:18)
[2022-03-31 17:20] LABS: Influenza A - CEPHEID Flu A NEGATIVE (NEGATIVE); Influenza B - CEPHEID Flu B NEGATIVE (NEGATIVE); Respiratory Syncytial Virus Negative (Negative)
[2022-03-31 17:23] LABS: COVID-19 CEPHEID 4-PLEX PCR Negative (Negative)
--- NOTE | 2022-03-31 18:30 | ED.HA ---
HPI - Headache General Chief Complaint: Headache Stated Complaint: Migraine Time Seen by Provider: 03/31/22 18:30 History of Present Illness HPI Narrative: 21-year-old female nonsmoker without significant medical history is 39 weeks presents with her in the chief complaint of a gradually worsening migraine-type headache since noon yesterday. She states it gets worse with bright lights and loud noise and improves with a dark room. At most it was a 7/10 and is currently 6/10. She has had no blurred vision or trouble with speech. She states she gets migraines but this is a slightly different presentation that is normal for her. Additionally she had diarrhea which is now constipation. She denies any dysuria, frequency or urgency. She denies any vaginal bleeding, discharge or leakage of fluid. She denies any falls or trauma, she is had no fever or chills, she denies neck pain. Related Data Home Medications Medication Instructions Recorded Confirmed Vitamin 1 tab PO DAILY 12/11/21 12/11/21 Allergies Allergy/AdvReac Type Severity Reaction Status Date / Time sumatriptan Allergy Unknown Verified 03/31/22 16:25 nickel Allergy Verified 03/31/22 16:25 Review of Systems Review of Systems Narrative: GENERAL: See HPI HEENT: Denies sinus pain, ear pain, sore throat, difficulty swallowing, dizziness. RESPIRATORY: Denies dyspnea, cough, wheezing, hemoptysis, sputum. CARDIOVASCULAR: Denies chest pain, palpitations, orthopnea, edema, GASTROINTESTINAL: See HPI : Denies dysuria, frequency, incontinence, hematuria, urinary retention. MUSCULOSKELETAL: denies weakness, joint pain, or bony pain SKIN: Denies rash, skin lesions, or other NEUROLOGIC: See HPI PSYCHIATRIC: No concerning psychosocial issues. 12 point review of systems is negative except for those stated above Patient History Medical History COVID Social History Smoking Status: Never smoker Smoking Status: Never smoker alcohol intake frequency: 0-2 drinks per day Substance Use Type: does not use Exam Narrative Exam Narrative: GENERAL: [21] year old patient appears stated age. Well-developed patient, in mild distress. GCS 15 HEAD: Atraumatic. Normocephalic. EYES: Pupils equal round and reactive. Extraocular motions intact. No scleral icterus. No injection or drainage. ENT: Nose without bleeding, purulent drainage. Throat without erythema, tonsillar hypertrophy or exudate. Airway patent. NECK: Trachea midline. Non tender, no meningeal signs CARDIOVASCULAR: Regular rate and rhythm without murmurs, gallops, or rubs. RESPIRATORY: Clear to auscultation. Breath sounds equal bilaterally. No wheezes, rales, or rhonchi. GASTROINTESTINAL: Abdomen soft, gravid, bowel sounds distant but present EXTREMITIES: No edema or joint tenderness. BACK: Nontender without deformity or crepitance. No flank tenderness. NEURO: AOx3. Cranial nerves 2-12 grossly intact SKIN: No rash or erythema of visible areas Initial Vital Signs Initial Vital Signs: Vital Signs Temperature 98.6 F 03/31/22 16:17 Pulse Rate 108 H 03/31/22 16:17 Respiratory Rate 18 03/31/22 16:17 Blood Pressure 119/69 03/31/22 16:17 Pulse Oximetry 97 03/31/22 16:17 Oxygen Delivery Method 03/31/22 16:17 Course Orders Ordered: Discontinued Medications Acetaminophen (Acetaminophen 325 Mg Tablet) 975 mg PO NOW ONE Stop: 03/31/22 17:15 Last Admin: 03/31/22 17:18 Dose: 975 mg Documented By: VANESSA Sodium Chloride (Normal Saline 0.9%) 1,000 mls @ 1,000 mls/hr IV BOLUS ONE Stop: 03/31/22 19:45 Last Infusion: 03/31/22 19:40 Dose: 0 mls/hr Documented By: Admin: 03/31/22 18:56 Dose: 1,000 mls/hr Documented By: MEEK Metoclopramide HCl (Metoclopramide 10 Mg/2 Ml Inj) 10 mg IV NOW ONE Stop: 03/31/22 18:47 Last Admin: 03/31/22 18:56 Dose: 10 mg Documented By: MEEK Reevaluation(s) Reevaluation #1: Patient has significant if not complete resolution of symptoms with above-stated therapies. We had been in discussion with labor and delivery about testing here, however they prefer that we clear her and send her after we are done. Vital Signs Vital signs: Vital Signs - 8 hr 03/31/22 16:17 03/31/22 18:25 03/31/22 18:33 Temperature 98.6 F 98.6 F Pulse Rate 108 H 94 H Respiratory Rate 18 Blood Pressure 119/69 Pulse Oximetry 97 98 Oxygen Delivery Method Room Air 03/31/22 18:26 03/31/22 18:26 03/31/22 18:30 Temperature Pulse Rate 89 80 Respiratory Rate Blood Pressure 116/72 Pulse Oximetry 99 97 Oxygen Delivery Method Room Air 03/31/22 18:31 03/31/22 18:31 03/31/22 19:00 Temperature Pulse Rate 86 Respiratory Rate Blood Pressure 96/59 L 109/76 Pulse Oximetry 98 Oxygen Delivery Method 03/31/22 19:00 Temperature Pulse Rate 79 Respiratory Rate 22 Blood Pressure Pulse Oximetry 98 Oxygen Delivery Method Room Air MDM - Headache Lab Data Labs: Lab Results 03/31/22 Range/Units 16:25 SARS-CoV-2 (PCR) Negative (Negative) Influenza A (RT-PCR) Flu a negative (NEGATIVE) Influenza B (RT-PCR) Flu b negative (NEGATIVE) RSV (PCR) Negative (Negative) MDM Narrative Medical decision making narrative: Headache considerations include, but not limited to: Subarachnoid hemorrhage, but unlikely as patient denies sudden onset of pain, not worst of life, or neck pain Meningitis considered, but thought unlikely given lack of Brudzinski's, Kernig's sign, altered mental status or fever Giant cell arteritis considered, but thought unlikely given lack of unilateral findings, pain in methodist, vision change HTN Emergency considered, but thought unlikely given normal vitals Other serious diagnoses considered unlikely given lack of red flag findings such as sudden onset, increasing frequency, immunocompromise, systemic signs (fever, chills, stiff neck, or rash), focal neurologic findings, trauma, blood thinners, etc. Discharge Plan Departure Patient Disposition: Home Clinical Impression: Migraine Instructions: DI for Migraine Activity Restrictions/Additional Instructions: *You have been diagnosed with [ Headache likely due to atypical migraine] *What to do: * continue to take medications as directed *Follow up with your primary care provider in 2-3 days, call for an appointment. Let them know you were seen in the Emergency Department and that we ask that you be seen in follow up *Return to ER if you should have any new, worsening or concerning symptoms, such as [ fever > 101F, neck pain or stiffness, vomiting, confusion, seizure, focal weakness, vision change, speech deficit or other concerning symptoms ] PLEASE PROCEED DIRECTLY TO L&D, they are expecting you Prescriptions: No Action Vitamin 1 tab PO DAILY Visit Report Forms: Patient Portal/API
[2022-03-31] MEDS: METOCLOPRAMIDE 10 MG/2 ML INJ IV (18:56)
[2022-03-31] MEDS: SODIUM CHLORIDE 0.9% 1,000 ML 1000 ML IV (18:56)
== END 2022-03-31 19:45 | disposition home or self-care (01) ==
PROVIDERS: Emergency Medicine; Emergency Provider Emergency Medicine
DX: G43.909 Migraine, unspecified, not intractable, without status migrainosus (principal); K59.00 Constipation, unspecified; Z20.822 Contact with and (suspected) exposure to COVID-19; O26.893 Other specified pregnancy related conditions, third trimester; Z3A.39 39 weeks gestation of pregnancy
CPT/HCPCS: 0241U; 59025; 96361; 96374; 99284; G0378; G0379; J2765

== ENCOUNTER 2022-03-31 20:27 | Outpatient (CLI) | payer OTHER, SELFPAY ==
--- NOTE | 2022-04-01 07:00 | PM.OBTRLD ---
Visit Information Visit Information Date of evaluation: 03/31/22 Primary OB Provider: Jo Ann Amado On-call OB Provider: Irais Mcrae Reason for Evaluation: Yes non-stress test Comments/Additional reasons for admission: 21YO @ [id number] LMP and 7wk US here for NST after being cleared from ED evaluation and treatment of migraine. Migraine is resolved. Occasional mild back discomfort, otherwise no cramping, VB or LOF. Lots of FM. Complete PN care w/ CNM complicated by bipolar II disorder on quetiapine (100mg PO daily). Patient now eager to home home and eat and go to sleep. Vital Signs Vital Signs: BP 112/74, HR 79bpm, T 36.4C Temporal PFSH Medical History (Updated 04/01/22 @ 07:13 by Jo Ann Amado CNM) COVID Migraine Patellar tendonitis of right knee Family History (Updated 04/01/22 @ 07:10 by Jo Ann Amado CNM) Mother Endometriosis Father Substance use disorder Social History (Updated 04/01/22 @ 07:11 by Jo Ann Amado CNM) marital status: household members: spouse lives independently: Yes housing: apartment occupational status: employed Previous occupational history: [employer] Smoking Status: Never smoker Review of Systems Review of Systems ROS: Yes All systems reviewed with the patient and are negative except as otherwise documented Exam Vital Signs (past 8 hours): see above Presentation: vertex Evaluation Evaluation Baseline heart rate: 125 Variability: Moderate (11-25) monitor accelerations: Present Monitor Decelerations: Absent Contraction Frequency (minutes): 3 Uterine Contraction Intensity: Mild Comments: CE deferred, paientt unaware of contractions Diagnosis, Plan/Disposition Final Diagnosis (1) Migraine: Status: Resolved Plan/Disposition Plan: Discharge to home with early labor precautions. Follow-up in 2 days as previously scheduled. OB Disposition: home
== END 2022-03-31 21:25 | disposition home or self-care (01) ==
LOC: OB 04-29 10:09
PROVIDERS: Referring Provider Obstetrics & Gynecology; Visit Provider Obstetrics & Gynecology
DX: O26.893 Other specified pregnancy related conditions, third trimester (principal); G43.909 Migraine, unspecified, not intractable, without status migrainosus; Z3A.39 39 weeks gestation of pregnancy
CPT/HCPCS: 59025; G0378; G0379

== ENCOUNTER 2022-04-10 06:49 | Inpatient (IN) | payer OTHER, SELFPAY ==
--- NOTE | 2022-04-10 07:01 | P.HPOB_ITS ---
OB HPI Date/Time Date of admission: 04/10/22 Date Patient Seen: 04/10/22 Time Patient Seen: 07:02 History of Present Condition Chief complaint: induction : 1 Para: 0 Estimated Date of Delivery: 04/04/22 Estimated Gestational Age (weeks): 40 6/7 Narrative: Jennifer Colmenares is a 21 year old female @ [id number] by sure LMP and concordant with 7wk US who presents to L&D for an IOL for post-dates. She is s/p Cortez balloon placement. Cortez balloon was placed on 04/08 in clinic and came out on 04/09 at 03:50. She had a few irregular and mild contractions after the Cortez balloon came out. care with CNM complicated by diagnosis of bipolar II disorder at 28wks and GDMA1. She is accompanied by her partner Kitty and mother Hallie. She reports she is doing well, feeling movement or leaking of fluid. Has had scant spotting over the last 24 hours. Planning low intervention . Comments: VS: BP 114/83mmHg, HR 84bpm, T 36.1C Temporal Indications Indication for induction OB: post dates History of Present care: good care, initiated at week # (7), number of visits (14) and pounds weight gain (29) Dating criteria: LMP confirmed by 1st trimester US Ultrasounds: normal 1st trimester US Obstetrical complications: gestational diabetes (GDMA1 100% controlled with diet and exercise) Medical complications: psychiatric (Bipolar II disorder, stable on Quetiapine 100mg ) Narrative: Mild anemia at 28 weeks. Anxiety and Bipolar II disorder diagnosed at 28 week appointment EPDS 24 with 3 for SI. Consultation with Psychiatry completed, Quetiapine initiated and increased to 100mg once daily. GDMA1 has been 100% controlled with diet and exercise. 1st trimester US and US WNL. Preadmission Labs Blood type: O (+) positive -: Antibody screen: positive, Cystic fibrosis screen: unknown, GBS status: negative, HBsAG: negative, HIV: negative, HSV 1: negative, HSV 2: negative and RPR/VDLR: negative -: Chlamydia screen: not detected and Gonorrhea screen: not detected -: Rubella: immune and Varicella: immune HCT: 31.2 PAP: Normal (Not done, <21y.o) 1 hr GTT: 169 Fasting blood glucose: 85 Narrative: MsAFP negative, GDMA1 well managed with diet and exercise Prior (ies) History: No history of prior pregnancies Evaluation Evaluation Baseline heart rate: 125 Variability: Moderate (11-25) monitor accelerations: Present Monitor Decelerations: Absent Contraction Frequency (minutes): 10 Uterine Contraction Intensity: Mild Category of Tracing: Reactive Status: Category l Dilation (cm): 4 Effacement (%): 70 Dilation: 3-4 cm Effacement: 60-70% station: -2 Position of cervix: mid Consistency: soft Gay score: 8 Comments: Patient is s/p cortez balloon placement. Cortez balloon placed in clinic 04/08. Cortez came out 04/09 at 03:50. Mild and irregular contractions. Membranes intact. [facility] Medical History (Updated 04/10/22 @ 08:35 by Jo Ann Amado CNM) Bipolar II disorder COVID Migraine Patellar tendonitis of right knee Family History (Updated 04/10/22 @ 07:47 by Jo Ann Amado CNM) Mother Endometriosis Depression Bipolar affect, depressed Father Substance use disorder Brother Depression Anxiety Schizophrenia Social History (Updated 04/01/22 @ 07:11 by Jo Ann Amado CNM) marital status: household members: spouse lives independently: Yes housing: apartment occupational status: employed Previous occupational history: [employer] Smoking Status: Never smoker Meds Home Medications and Allergies Home Medications Medication Instructions Recorded Confirmed Type Vitamin 1 tab PO DAILY 12/11/21 12/11/21 History quetiapine 100 mg tablet mg PO 1XD bipolar II disorder 04/10/22 History Allergies Allergy/AdvReac Type Severity Reaction Status Date / Time sumatriptan Allergy Unknown Verified 03/31/22 16:25 nickel Allergy Verified 03/31/22 16:25 Review of Systems Review of Systems ROS: Yes All systems reviewed with the patient and are negative except as otherwise documented Psychiatric Psychiatric: Reports anxiety and Reports other (Anxiety and Bipolar II disorder ) OB Exam Narrative Exam Narrative: Resp Effort & Inspection: normal respiratory effort Auscultation: clear to auscultation bilaterally Cardio Rate: regular rate Rhythm: regular rhythm Heart Sounds: S1 normal and S2 normal Presentation: vertex (No vaginal bleeding or leaking of fluid) Objective Labs Result Diagrams: 04/10/22 08:00 Assessment and Plan Assessment and Plan Assessment and Plan narrative: A: Term nullipara Elective IOL - favorable Rh positive GBS prophylaxis not indicated Category I heart rate tracing, reassuring P: Admit, routine orders with SL IV Pitocin per protocol Continuous heart rate monitoring Reassess in 4-6 hours or sooner PRN
--- NOTE | 2022-04-10 07:11 | PM.OBHP.1 ---
OB HPI Date/Time Date of admission: 04/10/22 Date Patient Seen: 04/10/22 Time Patient Seen: 07:05 History of Present Condition Chief complaint: induction : 1 Para: 0 Estimated Date of Delivery: 04/04/22 Narrative: Jennifer Colmenares is a 21 year old female [facility] Medical History (Updated 04/01/22 @ 07:13 by Jo Ann Amado CNM) COVID Migraine Patellar tendonitis of right knee Family History (Updated 04/01/22 @ 07:10 by Jo Ann Amado CNM) Mother Endometriosis Father Substance use disorder Social History (Updated 04/01/22 @ 07:11 by Jo Ann Amado CNM) marital status: household members: spouse lives independently: Yes housing: apartment occupational status: employed Previous occupational history: [employer] Smoking Status: Never smoker Meds Home Medications and Allergies Home Medications Medication Instructions Recorded Confirmed Type Vitamin 1 tab PO DAILY 12/11/21 12/11/21 History Allergies Allergy/AdvReac Type Severity Reaction Status Date / Time sumatriptan Allergy Unknown Verified 03/31/22 16:25 nickel Allergy Verified 03/31/22 16:25
[2022-04-10] MEDS: LACTATED RINGERS 1,000 ML 100 ML IV (08:18)
[2022-04-10] MEDS: OXYTOCIN PREMIX 30 UNIT/500 ML PLAST..BAG IV (08:18)
[2022-04-10 08:56] LABS: Add Manual Diff / Slide Review NO; Basophils Absolute Auto 0 /uL (0-100); Basophils Percent Auto 0.5 % (0-2); Eosinophils Absolute Auto 0 /uL (0-450); Eosinophils Percent Auto 0.5 % (2-4); Hematocrit 37.7 % (36-46); Lymphocytes Absolute Auto 1200 /uL (1100-4500); Lymphocytes Percent Auto 18.6 % (25-40); Mean Corpuscular HGB Conc 34.6 % (30-36); Mean Corpuscular Hemoglobin 31.2 PG (26-34); Mean Corpuscular Volume 90.4 fL (80-100); Monocytes Absolute Auto 500 /uL (0-900); Monocytes Percent Auto 8.2 % (3-14); Neutrophils Absolute Auto 4800 /uL (1500-7000); Neutrophils Percent Auto 72.2 % (50-75); Platelet Count 170 X10^3/uL (150-400); Red Blood Cell Count 4.17 X10^6/uL (4.0-5.2); White Blood Cell Count 6.7 X10^3/uL (4.5-11.0)
[2022-04-10 09:09] LABS: COVID19 -Nasal RAPID Negative (Negative)
--- NOTE | 2022-04-10 12:30 | PM.OBPNLAB ---
Date/Time Date Patient Seen: 04/10/22 Time Patient Seen: 12:15 Pain Control Pain control: tolerating well Comments: Patient was able to rest through intermittent contractions - feeling comfortable at this exam. VSS: 124/77mmHg, T: 36.4C, P: 93bpm Pelvic Exam Dilation (cm): 4 Effacement (%): 75 station: -2 Amniotic membrane status: Ruptured (Copious clear fluid ) Contractions Date/Time contractions began: Mild irregular contractions started this morning around 4am Contractions on admission: irregular Monitor mode: External Pitocin rate (mU/min): 14 Contraction frequency (min): 3 Contraction duration (min): 1 Contraction pattern: Regular Contraction phase: Contraction Contraction intensity: Mild Status status: Category l Heart Rate Baseline: 130 Monitor Accelerations: Present Monitor Decelerations: Absent Monitor Variability: Moderate Assessment and Plan Assessment: induction ongoing Plan: begin patient augmentation (AROM) Comments: A: Term nullipara IOL ongoing, on 14 mU pitocin GBS prophylaxis not indicated Category I FHR, reassuring P: Labor augmentation with AROM at this exam Continue pitocin per protocol Continuous heart rate monitoring Reassess in 4 hours or sooner PRN
[2022-04-10] MEDS: ONDANSETRON 4 MG/2 ML INJ IV ×2 (13:57→19:53)
--- NOTE | 2022-04-10 17:46 | P.PNOB_ITS ---
Date/Time Date Patient Seen: 04/10/22 Time Patient Seen: 17:00 Pain Control Pain control: tolerating well Comments: Patient was in the tub for two hours and then went back to the bed. Labored in a left side-lying position until she was too uncomfortable. Now sitting on the toilet supported by partner and mother. Patient is getting uncomfortable but coping well with labor. VS: 125/73mmHg, HR 83bpm, T 36.1C Temporal Pelvic Exam Dilation (cm): 7 Effacement (%): 80 station: -1 Amniotic membrane status: Ruptured (Copious clear fluid ) Contractions Date/Time contractions began: Moderate and regular contractions began at 13:55. Contractions are now every 2- 3min lasting 1 minute and strong. Monitor mode: External Pitocin rate (mU/min): 16 Contraction frequency (min): 2 Contraction pattern: Regular Contraction phase: Contraction Contraction intensity: Strong/Firm Status status: Category l Heart Rate Baseline: 140 Monitor Accelerations: Present Monitor Decelerations: Absent Monitor Variability: Moderate Assessment and Plan Assessment: active labor and induction ongoing Plan: continuous present management Comments: A: Term nullipara Active labor SROM x 5 hours without sx of infection Category I FHR P: Continue Pitocin per protocol Continuous heart rate monitoring Provide labor support and encourage position changes
[2022-04-10 18:15] VITALS: BP 114/83
--- NOTE | 2022-04-10 21:00 | PM.OBPNLAB ---
Date/Time Date Patient Seen: 04/10/22 Time Patient Seen: 21:00 Pain Control Pain control: other Comments: Patient coped well with strong, regular contractions and began to feel increasing rectal pressure with strong urge to push at 20:05, and was presumed complete. Patient moved to the bed, knees to chest and continued to push spontaneously. After approximately 40min of pushing on the bed with no perineal bulging CE recommended by CNM. VSS: 113/69mmHg, P: 70bpm, T: 35.9C Pelvic Exam Dilation (cm): 7 Effacement (%): 80 station: -1 Amniotic membrane status: Leaking (clear fluid) Contractions Contractions on admission: irregular Monitor mode: External Pitocin rate (mU/min): 16 Contraction frequency (min): 2 Contraction duration (min): 1 Contraction pattern: Regular Contraction phase: Contraction Contraction intensity: Strong/Firm Status status: Category l Heart Rate Baseline: 130 Monitor Accelerations: Present Monitor Decelerations: Absent Monitor Variability: Moderate Assessment and Plan Comments: A: Term nullipara Active labor- slow progress Category I heart rate P: Counseled patient on slow progress and recommend intervention to help decrease her urge to push. Offered hydrotherapy, nitrous oxide and IV medications for pain relief. Patient elected tub and will move that way. Continue Pitocin per protocol. Continuous heart rate monitoring Nitrous oxide or epidural PRN Reassess in 2 hours or sooner, PRN
[2022-04-10] MEDS: fentaNYL 100 MCG/2 ML INJ IV ×2 (21:50→22:58)
--- NOTE | 2022-04-10 23:34 | PM.OBPNLAB ---
Date/Time Date Patient Seen: 04/10/22 Time Patient Seen: 22:53 Pain Control Pain control: narcotic analgesia and other (NO2 prior to fentanyl) Comments: Not coping well. Tried the tub and NO2 without relief. Requested an epidural and anesthesia was notified at [id number]. Moderate relief with 1 dose of IV fentanyl until now. Requesting an additional dose and epidural as soon as possible. and mother remain supportive at her side. Pelvic Exam Dilation (cm): 7 Effacement (%): 80 station: -1 Amniotic membrane status: Leaking (clear fluid) Contractions Monitor mode: External Pitocin rate (mU/min): 16 Contraction frequency (min): 2 Contraction duration (min): 1 Contraction pattern: Regular Contraction phase: Contraction Contraction intensity: Strong/Firm Status status: Category l Heart Rate Baseline: 120 Monitor Accelerations: Present Monitor Decelerations: Absent Monitor Variability: Moderate Assessment and Plan Assessment: active labor and induction ongoing Plan: continuous present management Comments: Epidural YVETTE and IV Fentanyl while waiting. Will place IUPC after epidural placed.
[2022-04-11] VITALS (7 sets, daily range): BP systolic 121–139; BP diastolic 79–92; PULSE 109–125; RESP 15–25; TEMP 36.4–36.5; O2SAT 97–100
--- NOTE | 2022-04-11 05:41 | PM.OBPNLAB ---
Date/Time Date Patient Seen: 04/11/22 Time Patient Seen: 05:36 Pain Control Pain control: epidural Comments: Happy with epidural. Has been able to sleep. Frequently changing positions, using a peanut ball. VS: BP 120/62mmHg, HR 97bpm, T 35.4C Temporal Pelvic Exam Dilation (cm): 9.5 Effacement (%): 100 station: 0 Amniotic membrane status: Leaking (clear fluid) Contractions Date/Time contractions began: IUPC was placed at 0220 with inadequate contractions. Monitor mode: Internal Pitocin rate (mU/min): 16 Contraction frequency (min): 2 Contraction pattern: Regular Contraction phase: Contraction Contraction intensity: Strong/Firm Intrauterine tone measurement: 150 Status status: Category l Heart Rate Baseline: 120 Monitor Accelerations: Present Monitor Decelerations: Absent Monitor Variability: Moderate Assessment and Plan Assessment: active labor Plan: continuous present management Comments: Anticipate NSVB. Reassess in 2 hours or sooner, PRN.
[2022-04-11] MEDS: diphenhydrAMINE 50 MG/ML VIAL 25 MG IV ×2 (06:19→21:02)
[2022-04-11] MEDS: FENT 2MCG/ML BUPIV 0.125% EPI 200 MCG/100 ML PLAST..BAG 6 MCG EPIDURAL ×2 (06:39→13:09)
[2022-04-11] MEDS: ACETAMINOPHEN 325 MG TABLET 975 MG PO (11:20)
--- NOTE | 2022-04-11 11:23 | PM.OBPNLAB ---
Date/Time Date Patient Seen: 04/11/22 Time Patient Seen: 11:23 Pain Control Pain control: epidural Comments: Pushing x 2 hours with minimal descent. Jennifer is frustrated with increased discomfort despite PCEA boluses and coordination of pushing has decreased. Jennifer is extremely tired and requesting assistance- agreeable to both vacuum assistance and at this time. VS: BP 121/64mmHg, HR 86bpm, T 36.9C Temporal Pelvic Exam Dilation (cm): 10 Effacement (%): 100 station: +2 (Borderline +2) Amniotic membrane status: Leaking (clear fluid) Comments: +1 without pushing/+2 with pushing station Contractions Monitor mode: External Pitocin rate (mU/min): 16 Contraction frequency (min): 2 Contraction pattern: Regular Contraction phase: Contraction Contraction intensity: Strong/Firm Status status: Category l Heart Rate Baseline: 145 Monitor Accelerations: Present Monitor Decelerations: Absent Monitor Variability: Moderate Assessment and Plan Comments: A: Term nullipara GDMA1 Arrest of descent Maternal fatigue ROM x 23 hours without sx of infection Category I FHR P: Consult [facility] OB for vacuum assistance vs primary given +1/+[address] her [address].
--- NOTE | 2022-04-11 12:29 | PM.PREOP ---
Pre-operative Note COVID-19 COVID-19 status: Negative Result date/Date tested (Pos, Neg/Pending): 04/10/22 Criteria for continued procedure: Delay expected to result in less-positive ultimate med/surg outcome and Non-surgical alternatives not available or appropriate per current SOC Interval Note History & Physical reviewed/Exam performed by Physician: Yes Changes to H&P: No H&P completed within 30 days and has changed as indicated here:: OB physician consult: H&P reviewed. No changes in maternal history and physical. Obstetrically she has had arrest of descent at 1+ station. Patient underwent induction of labor for post dates with a Oliva balloon and then Pitocin. GBS negative. complicated by GDM A1, controlled with diet. She was also diagnosed with bipolar disorder during the . No other complications. No recent US for EFW, but patient has been measuring appropriately in the office and is estimated that baby is average size. She has progressed to completely dilated and has pushed for about 2 hours and now has maternal exhaustion. On exam vertex is 1+ station, feels SUNITHA position on exam. With pushing she does push vertex down to 2+, but it does go back up to 1+ station after pushing. Pelvis does appear adequate but vertex only at 1+ station. I do not feel it would be a safe vacuum assistance at this time, she would need to push baby to lower station. Discussed this with the patient. I recommended proceeding with section for delivery due to arrest of descent or she can try pushing longer. Patient desired to proceed with section for delivery. She has had ruptured membranes for over 24 hours. She is afebrile. EFM is category 1 with some early FHR decelerations. procedure reviewed. I discussed the procedure. Discussed surgical risks of the procedure including bleeding, infection, injury to adjacent organs including bladder, ureters and bowel. Discussed risk of injury to the baby, nicking the baby with the scalpel or injury with difficult delivery at time of . She does report that she would desire a blood transfusion if needed for any heavy bleeding. Verbal and written consent obtained. OR was notified and awaiting to follow other urgent OR cases. Pitocin was turned off at this time, since not proceeding with attempting a vaginal delivery. Patient opted to not push further at this time while awaiting .
[2022-04-11] MEDS: CITRIC ACID/SODIUM CITRATE 15 ML SOLUTION 30 ML PO (14:24)
--- NOTE | 2022-04-11 14:38 | SUR.OPER ---
Supine on Padded OR bed, head on pillow, safety belt at thigh, arms secured on padded arm boards at <90 degrees abduction. Bump under right buttock. Legs uncrossed with pillow under knees, gel pad to heels, tape over blanket to lower legs.
[2022-04-11] MEDS: CEFAZOLIN 2 GM/100 ML PREMIX 100 ML IV (15:01)
[2022-04-11] MEDS: ACETAMINOPHEN IV 1,000 MG/100 ML VIAL 400 MG IV (15:15)
[2022-04-11] MEDS: LACTATED RINGERS 1,000 ML 100 ML IV ×2 (15:19→17:03)
[2022-04-11] MEDS: TRANEXAMIC ACID 1,000 MG in SODIUM CHLORIDE 0.9% 100 ML 200 MG IV (15:46)
--- NOTE | 2022-04-11 15:47 | SUR.OPER ---
Addendum entered by Johnny Tamayo R.N. 04/11/22 15:57: placenta delivered at 1543 Original Note: FHT prior to incision 135, viable baby girl born at 1539, weight 8lb 3oz, 9/9, cord blood and placenta sent to OB with OB TEO Morton
[2022-04-11] MEDS: miSOPROStoL 200 MCG TABLET 400 MCG SL (15:58)
--- NOTE | 2022-04-11 16:36 | PM.PROC.1 ---
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 My responsibilities included retracting and suctioning, providing fundal pressure during delivery and following with suture during closure. Please see the OB's note for details of the surgery.
[2022-04-11] MEDS: OXYCODONE IR 5 MG TABLET PO ×2 (16:55→23:42)
[2022-04-11] MEDS: HYDROMORPHONE 2 MG INJ IV (17:00)
--- NOTE | 2022-04-11 17:41 | PM.OBCS.1 ---
Operative Date/Time/Diagnoses Date of procedure: 04/11/22 Time of procedure: 15:30 Pre-op diagnosis: 41 week . Arrest of descent in second stage of labor. Post-op diagnosis: same (with OP position noted at time of delivery) Procedure & Clinicians Procedure: Primary lower transverse section Same procedure as scheduled: Yes Indications: 21-year-old G1 female @ 41 weeks EGA underwent induction of labor for post-dates , with cervical ripening with transcervical balloon and IV Pitocin for induction of labor. She progressed in labor to complete and pushed for approximately 2 hours with now maternal exhaustion, and no further descent of the vertex past 1+ station. Since head is not low enough to assist by vacuum, I recommended proceeding with section for delivery. She desired to proceed with . Surgeon: Irais Mcrae Click Yes if Unassisted: No Reason for Pump Attendant: Pump Attendant: pt's primary OB provider Jo Ann Amado CNM. Pump Attendant needed to perform abdominal retraction for exposure and give fundal assistance for delivery as well as exposure for deliery of the infant. No qualified assistant casino shift manager was available. Anesthesia Type: Epidural Operative Notes Findings: Vigorous baby girl delivered from the OP position. Baby was low in the maternal pelvis inferior to the pubic bone from the maternal pushing efforts. normal maternal uterus and bilateral fallopian tubes and ovaries Closure Type: primary Specimen(s): cord blood Intraoperative meds administered: Duramorph, Misoprostol, Pitocin and Tranexamic acid Applied: Catheter (Oliva) Estimated Blood Loss (mL): 1,200 Blood products transfused: none Procedure in detail: She was transferred from the center to the operating room. Oliva catheter had previously been placed during her labor. She had epidural anesthesia and placed and this was bolused by the anesthesiologist. She was placed in the supine position and prepped and draped in routine sterile fashion. Anesthesia level was tested with an Allis clamp and noted to be adequate. A Pfannenstiel skin incision was made in the lower abdomen and carried down to the level of the fascia. A few bleeding capillaries with strong pulse pressure were coagulated in the subcutaneous tissue. The fascia was incised in the midline and was bluntly extended transversely. The superior and inferior edges of the fascia were elevated and dissected off the rectus muscles with Bovie, sharp and blunt dissection. The muscles were bluntly in the midline. The parietal peritoneum was elevated, incised and extended bluntly. The bladder blade was placed. The visceral peritoneum was elevated off the lower uterus, incised and the bladder flap was bluntly created. The bladder blade retractor was placed. A transverse incision was made in the lower uterus and the incision was extended transversely with blunt dissection. Clear fluid was noted. On entry into the uterus the neck, shoulders were noted. The head was wedged low in the pelvis and noted to be OP position. The head could not be elevated to the incision on initial attempt. The patient's legs were beneath the drape and the obstetrical nurse ready with sterile gloves on, performed a vaginal exam and help push the baby's head up. With her assistance, the head was pushed high enough such that I could now bring the baby's head to the uterine incision. The head was then delivered through the uterine incision with mild fundal assistance. Anterior and posterior shoulders followed by the body were delivered without difficulty with fundal assistance. The cried spontaneously and was shown to the parents. After 1 minute cord was clamped and cut and the infant was handed off to respiratory therapy who was present for delivery. Cord blood was obtained a specimen. The placenta was delivered with uterine massage and cord traction. It appeared intact with a normal three-vessel cord. IV Pitocin was given. The uterus was brought through the abdominal incision and was swept clean of adherent clots and membranes. The edges and angles of the uterine incision were grasped with ring forceps. There was some heavier bleeding from the incisional edges. The uterus was somewhat atonic. Misoprostol 400 mcg buccally was given. Tranexamic acid was subsequently given during closure of the uterus with a decrease in bleeding to normal. The uterus and closed in 2 layers with 0 Vicryl, the 1st layer being in running locking continuous fashion and the 2nd layer being in a vertical imbricating type fashion. There was focal bleeding along her left side of the uterine incision which was controlled with a [id number] suture of 0 Vicryl. There was also a small hematoma noted beneath the uterine serosa just superior to the incision on her right side. 2 [id number] sutures were placed over the hematoma to compress this. It was noted to not be spreading after placement of the sutures. Hemostasis was noted along the incision. The tubes and ovaries were inspected and noted to be normal. Posterior to the uterus was suctioned of some fluid and blood. The uterus was placed back into the maternal abdomen. The paracolic gutters were inspected and wiped of some minimal blood and fluid. The anterior cul-de-sac was inspected and some clot was removed. The uterine incision was re- inspected and good hemostasis was noted. The pelvis was irrigated. Repeat inspection showed continued hemostasis. The abdomen was closed. The parietal peritoneum was reapproximated with running #3 Vicryl. The fascia was closed with running continuous suture of 0 Vicryl. The subcutaneous tissue was reapproximated by reapproximating Stephie's fascia with running 3-0 Vicryl. The skin was closed with a subcuticular suture of 4 0 Monocryl. Steri-Strips and sterile Aquacel dressing was placed. She tolerated the procedure well and went to the recovery room in stable condition. Complications: none Baby 1: Infant Gender: Female Presentation: vertex Position: Left Occiput Posterior Placental Delivery Description: Expressed Cord Vessel Description: 3 Vessels score (1 min): 9 score (5 min): 9 weight: 8 lb 3.219 oz Post-operative Condition: stable Disposition: PACU Aftercare: routine postop
[2022-04-11] MEDS: KETOROLAC 30 MG/ML VIAL IV ×2 (18:22→23:42)
[2022-04-11 18:49] LABS: Add Manual Diff / Slide Review NO; Basophils Absolute Auto 0 /uL (0-100); Basophils Percent Auto 0.1 % (0-2); Eosinophils Absolute Auto 0 /uL (0-450); Hematocrit 30.1 % (36-46); Hemoglobin 10.6 g/dL (12.0-16.0); Lymphocytes Absolute Auto 300 /uL (1100-4500); Lymphocytes Percent Auto 2.5 % (25-40); Mean Corpuscular HGB Conc 35.1 % (30-36); Mean Corpuscular Hemoglobin 31.7 PG (26-34); Mean Corpuscular Volume 90.4 fL (80-100); Monocytes Absolute Auto 600 /uL (0-900); Monocytes Percent Auto 4.5 % (3-14); Neutrophils Absolute Auto 11600 /uL (1500-7000); Neutrophils Percent Auto 92.9 % (50-75); Platelet Count 154 X10^3/uL (150-400); Red Blood Cell Count 3.33 X10^6/uL (4.0-5.2); Red Cell Distribution Width 13.9 % (11.6-14.8); White Blood Cell Count 12.5 X10^3/uL (4.5-11.0)
[2022-04-11] MEDS: QUETIAPINE 100 MG TABLET PO (22:05)
[2022-04-12] MEDS: KETOROLAC 30 MG/ML VIAL IV ×2 (05:17→11:33)
[2022-04-12] MEDS: OXYCODONE IR 5 MG TABLET PO ×4 (05:17→18:02)
[2022-04-12 08:21] LABS: Add Manual Diff / Slide Review NO; Basophils Absolute Auto 0 /uL (0-100); Basophils Percent Auto 0.2 % (0-2); Eosinophils Absolute Auto 0 /uL (0-450); Eosinophils Percent Auto 0.3 % (2-4); Hematocrit 21.9 % (36-46); Hemoglobin 7.8 g/dL (12.0-16.0); Lymphocytes Absolute Auto 800 /uL (1100-4500); Lymphocytes Percent Auto 7.9 % (25-40); Mean Corpuscular HGB Conc 35.7 % (30-36); Mean Corpuscular Hemoglobin 32.1 PG (26-34); Monocytes Absolute Auto 500 /uL (0-900); Monocytes Percent Auto 4.7 % (3-14); Neutrophils Absolute Auto 9200 /uL (1500-7000); Neutrophils Percent Auto 86.9 % (50-75); Platelet Count 126 X10^3/uL (150-400); Red Blood Cell Count 2.43 X10^6/uL (4.0-5.2); Red Cell Distribution Width 14.1 % (11.6-14.8); White Blood Cell Count 10.6 X10^3/uL (4.5-11.0)
[2022-04-12] MEDS: DOCUSATE 100 MG CAPSULE 200 MG PO (09:08)
[2022-04-12] MEDS: ACETAMINOPHEN 325 MG TABLET 650 MG PO ×2 (11:55→21:36)
--- NOTE | 2022-04-12 13:12 | PM.OBPN.1 ---
Subjective - OB Subjective Patient comments: pain well controlled and tolerating diet [place] baby status: doing well [place] feeding status: exclusively breast feeding Date Patient Seen: 04/12/22 Time Patient Seen: 13:00 Interval history: Overall feeling well. Tired, partly because baby was awake frequently last night besides long labor and I presume also fatigued with some anemia. Lochia is normal. Only passed flatus once maybe. No nausea, tolerating regular diet. No lightheadedness or shortness of breath. No fever or chills. Exam Vital Signs (past 8 hours): Oxygen Delivery Method Room Air Temp 98.8F. BP 110/58, Pulse 97-114 Narrative Exam Narrative: General: Well-appearing female Pulmonary: normal inspiratory effort. Speaks full sentences without difficulty. Abdomen: Soft, nontender, nondistended. dressing is intact, dry Fundus U=0, firm, diffuse mild tenderness Extremities: Mild pedal edema in feet, right foot greater than left. No calf tenderness Objective Labs Result Diagrams: 04/12/22 08:06 Labs: Laboratory Results - last 24 hr 04/11/22 04/12/22 17:59 08:06 WBC 12.5 H D 10.6 RBC 3.33 L 2.43 L Hgb 10.6 L 7.8 L Hct 30.1 L 21.9 L MCV 90.4 90.0 MCH 31.7 32.1 MCHC 35.1 35.7 RDW 13.9 14.1 Plt Count 154 126 L Neut % (Auto) 92.9 H D 86.9 H Lymph % (Auto) 2.5 L 7.9 L [place] % (Auto) 4.5 4.7 Eos % (Auto) 0.0 L 0.3 L Baso % (Auto) 0.1 0.2 Neut # (Auto) 50382 H 9200 H Lymph # (Auto) 300 L 800 L [place] # (Auto) 600 500 Eos # (Auto) 0 0 Baso # (Auto) 0 0 Assessment & Plan Assessment and Plan (1) Status post primary low transverse section: Status: Acute (2) Anemia due to acute blood loss: Status: Acute (3) Bipolar II disorder: Status: Acute Plan day: 1 plan OB: routine postop care and other ( hemorrhage, heavy initial bleeding due to uterine atony, controlled with uterotonics and TXA) Comments: Status post primary section and Patient to be assisted with added bed for 1st time shortly. If she does well then the Oliva catheter will be removed And gradually increase ambulation. Gave her precautions to not take a hot shower and walk slowly with her lower H/ H currently. Will given iron infusion. await full bowel return. Time Spent With Patient Time: Total time spent is greater than 50% in coordination of care (as documented) at patient's floor/unit and/or counseling patient: Time with patient: 15-24 minutes
[2022-04-12] MEDS: IBUPROFEN 600 MG TABLET PO ×2 (18:02→23:32)
[2022-04-12] MEDS: LANOLIN OINT 7 GM 1 APPLIC TOP (21:38)
[2022-04-12] MEDS: QUETIAPINE 100 MG TABLET PO (21:38)
[2022-04-12] MEDS: OXYCODONE IR 10 MG TABLET PO (22:00)
[2022-04-13] MEDS: OXYCODONE IR 5 MG TABLET PO ×2 (03:49→13:53)
[2022-04-13] MEDS: ACETAMINOPHEN 325 MG TABLET 650 MG PO ×3 (03:50→16:24)
[2022-04-13] MEDS: IBUPROFEN 600 MG TABLET PO ×2 (06:05→12:01)
[2022-04-13] MEDS: DOCUSATE 100 MG CAPSULE 200 MG PO (08:38)
--- NOTE | 2022-04-13 12:18 | PM.OBDS.1 ---
Discharge Providers Provider Date of admission: 04/11/22 16:01 Discharge Date: 04/13/22 Consults: 04/11/22 17:56 Consult to Account Executive Software Sales Routine Comment: Discharge provider: Irais Mcrae MD Summary Hospital Course Date Patient Seen: 04/13/22 Time Patient Seen: 12:00 Hospital Course: 21-year-old G1 female @ 41 weeks EGA?who underwent induction of labor for post-dates , with cervical ripening with transcervical balloon and IV Pitocin for induction of labor. She progressed in labor to complete and pushed for approximately 2 hours with maternal exhaustion,? and no further descent of the vertex past 1+ station. I recommended proceeding with section for delivery since head was not low enough to assist vaginally, unless she desired to push further.? She desired to proceed with . She underwent primary section and a viable baby girl was delivered weighing 8 lb 3 oz with Apgars of 9 and 9. She had heavier uterine bleeding after delivery of the placenta, hemorrhage which was controlled with uterine massage, Pitocin, buccal misoprostol, and TXA. Her lochia then remained normal. Her hemoglobin had dropped from 10.6-7.8. She felt fatigued but otherwise asymptomatic. She received an iron infusion on day 1 and 2. She has had a normal postoperative, course. On postoperative day 2 she reported feeling well and desired discharge home. She was routinely passing flatus and tolerating regular diet. She voided without problems. She is ambulating without problems. She is . She was discharged to home on postoperative day 2, doing well. She will be scheduled for removal of her Aquacel dressing in 1 week. Peripartum Data Infant Delivery Method: Section Laceration Description: None Episiotomy description: None complications: uterine atony [place] 1: Gender: Female Disposition of : home Discharge Diagnosis (1) Status post primary low transverse section: Status: Acute (2) Anemia due to acute blood loss: Status: Acute (3) Bipolar II disorder: Status: Acute Status at Discharge Cognitive/behavioral status at discharge: oriented and at baseline, oriented Functional status at discharge: independent ambulation Overall status at discharge: patient is progressing back to baseline Time Spent with Patient Time attestation: Total time spent providing and/or coordinating discharge services: Time spent: Less than 30 minutes Objective Labs Result Diagrams: 04/13/22 11:30 Exam Vital Signs (past 8 hours): Oxygen Delivery Method Room Air Temp 97.9 BP 103/67 Pulse 102-116 Narrative Exam Narrative: General: Well-appearing female Pulmonary: Normal inspiratory effort noted. Speaking complete sentences without difficulty Abdomen: Soft, nondistended except exected bruce-incisional tenderness. Dressing is dry and intact. Fundus U-1, firm, nontender Extremities: Trace pedal edema Discharge Plan Discharge Plan Patient Disposition: Home Provider Discharge Comment: Congratulations on your delivery. you had a primary lower transverse section for delivery You may take Tylenol besides the prescribed medications, for pain I recommend taking Colace, a stool softener, 1-2 pills daily until you are finished with the oxycodone. Discharge orders & Medications Prescriptions: New ibuprofen 600 mg Tablet 600 mg PO Q6HR PRN (Reason: pain) Qty: 60 0RF oxycodone 5 mg Tablet See Rx Instructions .ROUTE .COMPLEX PRN (Reason: Pain, Moderate (4-6)) Qty: 20 0RF Rx Instructions: 1-2 tablets every 4-6 hours as needed for pain. Maximum 6 tablets daily Continued Vitamin 1 tab PO DAILY quetiapine 100 mg tablet PO 1XD Label Comments: TAKE 1 TABLET BY MOUTH EVERY NIGHT Follow up/Referrals: Irais Mcrae MD [Physician] - As previously scheduled ( In addition to calling your primary OB provider, Jo Ann Amado, you may call the above-listed phone number for any problems, questions after your . See printed appointment list for your 1 week, 2 week and 6 week appointments: Monday April 18, 2022 at 1:45 pm 2021 at 11:45 am Monday May 23, 2022 at 10:30 am) Discharge Health Status Multidrug resistant organism: No MDRO Diet/Activity/Treatments Diet: Regular Activity: No strenuous activity for 4 weeks. No driving for 2 weeks and no driving while taking the oxycodone Nothing in the vagina for 6 weeks, no tampons and no intercourse. Skin/Wound/Dressing Care Report to your healthcare provider any signs of infection, such as:: chills, fever, increased pain, unusual drainage and unusual redness Visit Report/Discharge Packet Instructions: DI for Stand Alone Forms: Discharge: Care
[2022-04-13 12:40] LABS: Add Manual Diff / Slide Review NO; Basophils Absolute Auto 0 /uL (0-100); Basophils Percent Auto 0.1 % (0-2); Eosinophils Absolute Auto 100 /uL (0-450); Eosinophils Percent Auto 0.7 % (2-4); Hematocrit 25.1 % (36-46); Hemoglobin 8.7 g/dL (12.0-16.0); Lymphocytes Absolute Auto 1100 /uL (1100-4500); Lymphocytes Percent Auto 9.3 % (25-40); Mean Corpuscular HGB Conc 34.8 % (30-36); Mean Corpuscular Hemoglobin 31.8 PG (26-34); Mean Corpuscular Volume 91.5 fL (80-100); Monocytes Absolute Auto 600 /uL (0-900); Neutrophils Absolute Auto 9800 /uL (1500-7000); Neutrophils Percent Auto 84.9 % (50-75); Platelet Count 170 X10^3/uL (150-400); Red Blood Cell Count 2.74 X10^6/uL (4.0-5.2); White Blood Cell Count 11.5 X10^3/uL (4.5-11.0)
[2022-04-13] MEDS: IRON SUCROSE 300 MG in SODIUM CHLORIDE 0.9% 250 ML 176.667 MG IV (12:53)
[2022-04-13 16:45] VITALS: BP 132/90; PULSE 110; RESP 15; TEMP 36.4
== END 2022-04-13 16:40 | disposition home or self-care (01) | DRG 787 ==
PROVIDERS: Obstetrics & Gynecology; Admitting Provider Nurse Practitioner Obstetrics & Gynecology; Referring Provider Nurse Practitioner Obstetrics & Gynecology; Visit Provider Nurse Practitioner Obstetrics & Gynecology
PROC: 10D00Z1 Extraction of Products of Conception, Low, Open Approach (ICD-10-PCS; CPT 59514; principal; 2022-04-11 13:30)
DX: O62.1 Secondary uterine inertia (principal); D62 Acute posthemorrhagic anemia; O72.1 Other immediate postpartum hemorrhage; F31.81 Bipolar II disorder; O90.81 Anemia of the puerperium; O24.420 Gestational diabetes mellitus in childbirth, diet controlled; O99.344 Other mental disorders complicating childbirth; O48.0 Post-term pregnancy; Z37.0 Single live birth; O75.81 Maternal exhaustion complicating labor and delivery; Z3A.40 40 weeks gestation of pregnancy; Z20.822 Contact with and (suspected) exposure to COVID-19
CPT/HCPCS: 36415; 59050; 85025; 86850; 86900; 86901; 87635; C9803; G0378; G0379; J0131; J0690; J1170; J1200; J1756; J1885; J2274; J2405; J2590; J2704; J3010; S0191

== ENCOUNTER 2022-05-02 01:25 | Emergency (ER) | payer OTHER, SELFPAY ==
[2022-05-02 01:29] VITALS: BP 136/76; PULSE 84; RESP 16; TEMP 36.1; O2SAT 100; BMI 27.4
--- NOTE | 2022-05-02 01:31 | ED.GENADULT ---
HPI - General Adult General Chief complaint: GI Bleed Stated complaint: dizziness- 3 weeks Time Seen by Provider: 05/02/22 01:25 Source: patient Mode of arrival: EMS Limitations: no limitations History of Present Illness HPI narrative: Patient is a 21 year female who brought in by EMS for evaluation of dizziness after having a bowel movement today. She is 3 weeks . She did have a secondary to failure to progress during the labor. . She was induced. She states that since she delivered her vaginal bleeding has improved. She has had blood in her stool since the delivery. She is having normal bowel movements. States that she gets lightheaded whenever she stands up from having a bowel movement. This does not seem to happen at other points with changing positions unless she stands up too quickly. This evening she had a bowel movement. She stood up became lightheaded. There was blood in her stool. She told her about this and they contacted EMS to bring her in for evaluation. She was anemic after the delivery and did receive an iron transfusion. During the event she does not have chest pain, shortness of breath, palpitations or headache. Related Data Home Medications Medication Instructions Recorded Confirmed Vitamin 1 tab PO DAILY 12/11/21 04/10/22 quetiapine 100 mg tablet mg PO 1XD bipolar II disorder 04/10/22 Previous Rx's Medication Instructions Recorded ibuprofen 600 mg tablet 600 mg PO Q6HR PRN pain #60 tabs 04/13/22 oxycodone 5 mg tablet See Rx Instructions .Route 04/13/22 .COMPLEX PRN Pain, Moderate (4-6) #20 tabs Allergies Allergy/AdvReac Type Severity Reaction Status Date / Time sumatriptan Allergy Unknown Verified 05/02/22 01:32 nickel Allergy Verified 05/02/22 01:32 Review of Systems Constitutional Constitutional: Reports system reviewed and no additional complaints, except as documented Cardiovascular Cardiovascular: Reports system reviewed and no additional complaints, except as documented Respiratory Respiratory: Reports system reviewed and no additional complaints, except as documented Gastrointestinal Gastrointestinal: Reports system reviewed and no additional complaints, except as documented Genitourinary Genitourinary: Reports system reviewed and no additional complaints, except as documented Integumentary/Breasts Skin/Breast: Reports system reviewed and no additional complaints, except as documented Hematologic/Lymphatic On Anticoagulants: No Patient History Medical History Bipolar II disorder COVID Migraine Patellar tendonitis of right knee Family History (Updated 04/10/22 @ 07:47 by Jo Ann Amado CNM) Mother Endometriosis Depression Bipolar affect, depressed Father Substance use disorder Brother Depression Anxiety Schizophrenia Social History marital status: household members: spouse lives independently: Yes housing: apartment occupational status: employed Previous occupational history: [employer] Smoking Status: Never smoker Smoking Status: Never smoker alcohol intake frequency: 0-2 drinks per day Substance Use Type: does not use Exam Initial Vital Signs Initial Vital Signs: Vital Signs Temperature 97.0 F L 05/02/22 01:29 Pulse Rate 84 05/02/22 01:29 Respiratory Rate 16 05/02/22 01:29 Blood Pressure 136/76 05/02/22 01:29 Pulse Oximetry 100 05/02/22 01:29 Oxygen Delivery Method 05/02/22 01:29 Const General: cooperative, comfortable and No ill appearing HENCT Head: normal to inspection Resp Auscultation: clear to auscultation bilaterally Cardio Rate: regular rate Rhythm: regular rhythm GI Inspection: normal to inspection Rectal Exam: No fissure and hemorrhoids (1 external hemorrhoid) Skin General: no rashes or lesions noted Neuro General: patient alert, patient awake and moves all extremities Extrem General: normal to inspection Course Orders Ordered: ED Orders 05/02/22 01:25 Basic Metabolic Panel Stat Complete Blood Count AUTO DIFF Stat Vital Signs Vital signs: Vital Signs - 8 hr 05/02/22 01:29 Temperature 97.0 F L Pulse Rate 84 Respiratory Rate 16 Blood Pressure 136/76 Pulse Oximetry 100 Oxygen Delivery Method Room Air Medical Decision Making Lab Data Result diagrams: 05/02/22 01:35 05/02/22 01:35 Labs: Lab Results 05/02/22 05/02/22 Range/Units 01:35 01:35 WBC 5.5 (4.5-11.0) X10^3/uL RBC 3.80 L (4.0-5.2) X10^6/uL Hgb 11.5 L (12.0-16.0) g/dL Hct 34.1 L (36-46) % MCV 89.8 (80-100) fL MCH 30.1 (26-34) PG MCHC 33.6 (30-36) % RDW 14.3 (11.6-14.8) % Plt Count 372 (150-400) X10^3/uL Neut % (Auto) 66.6 (50-75) % Lymph % (Auto) 24.0 L (25-40) % [place] % (Auto) 5.4 (3-14) % Eos % (Auto) 2.9 (2-4) % Baso % (Auto) 1.1 (0-2) % Neut # (Auto) 3700 (5688-1754) /uL Lymph # (Auto) 1300 (0993-9740) /uL [place] # (Auto) 300 (0-900) /uL Eos # (Auto) 200 (0-450) /uL Baso # (Auto) 100 (0-100) /uL Sodium 139 (137-145) mmol/L Potassium 3.8 (3.4-5.1) mmol/L Chloride 105 (98-107) mmol/L Carbon Dioxide 25 (22-32) mmol/L BUN 15 (7-17) mg/dL Creatinine 0.74 (0.52-1.04) mg/dL Estimated GFR > 60 (>60) mL/min BUN/Creatinine Ratio 20.3 (6-22) Glucose 105 H (70-100) mg/dL Calcium 9.5 (8.4-10.2) mg/dL MDM Narrative Medical decision making narrative: Patient's labs show that her H and HS vascularly improved since the delivery. She is had no ectopy on the monitor. She is a benign exam. Her electrolytes are unremarkable. Eric states that the blood is coming from her stool and not from her vagina. She feels that her vaginal discharge has improved. She does have 1 external hemorrhoid. Will hold on further workup for now and have her keep all of her scheduled medical appointments. She was given return precautions and follow-up instructions. She expressed understanding and agreement plan. Discharge Plan Departure Patient Disposition: Home Clinical Impression: Hemorrhoids, Lightheadedness Instructions: Hemorrhoids Activity Restrictions/Additional Instructions: I recommend that you continue to keep all of your scheduled medical appointments. You can use the which he is will pads that you were given after your delivery to help with the hemorrhoid. Return to the emergency department for any new symptoms. Prescriptions: No Action Vitamin 1 tab PO DAILY quetiapine 100 mg tablet PO 1XD Label Comments: TAKE 1 TABLET BY MOUTH EVERY NIGHT ibuprofen 600 mg Tablet 600 mg PO Q6HR PRN (Reason: pain) Qty: 60 0RF oxycodone 5 mg Tablet See Rx Instructions .ROUTE .COMPLEX PRN (Reason: Pain, Moderate (4-6)) Qty: 20 0RF Rx Instructions: 1-2 tablets every 4-6 hours as needed for pain. Maximum 6 tablets daily Referrals: ProviderMargot [Primary Care Provider] -
[2022-05-02 01:44] LABS: Add Manual Diff / Slide Review NO; Basophils Absolute Auto 100 /uL (0-100); Basophils Percent Auto 1.1 % (0-2); Eosinophils Absolute Auto 200 /uL (0-450); Eosinophils Percent Auto 2.9 % (2-4); Hematocrit 34.1 % (36-46); Hemoglobin 11.5 g/dL (12.0-16.0); Lymphocytes Absolute Auto 1300 /uL (1100-4500); Mean Corpuscular HGB Conc 33.6 % (30-36); Mean Corpuscular Hemoglobin 30.1 PG (26-34); Mean Corpuscular Volume 89.8 fL (80-100); Monocytes Absolute Auto 300 /uL (0-900); Monocytes Percent Auto 5.4 % (3-14); Neutrophils Absolute Auto 3700 /uL (1500-7000); Neutrophils Percent Auto 66.6 % (50-75); Platelet Count 372 X10^3/uL (150-400); Red Cell Distribution Width 14.3 % (11.6-14.8); White Blood Cell Count 5.5 X10^3/uL (4.5-11.0)
[2022-05-02 01:51] LABS: BUN Creatinine Ratio 20.3 (6-22); Blood Urea Nitrogen 15 mg/dL (7-17); Calcium 9.5 mg/dL (8.4-10.2); Carbon Dioxide 25 mmol/L (22-32); Chloride 105 mmol/L (98-107); Estimated Glomerular Filt Rate > 60 mL/min (>60); Glucose 105 mg/dL (70-100); HEMOLYSIS 20 (0-50); Potassium 3.8 mmol/L (3.4-5.1); Sodium 139 mmol/L (137-145)
--- NOTE | 2022-05-02 02:04 | PC.NURSE ---
Standby for rectal exam. Small external hemorrhoid noted.
[2022-05-02 02:10] VITALS: PULSE 83; RESP 12; O2SAT 100
== END 2022-05-02 02:15 | disposition home or self-care (01) ==
PROVIDERS: Emergency Provider Emergency Medicine
DX: R42 Dizziness and giddiness (principal); K64.9 Unspecified hemorrhoids
CPT/HCPCS: 36415; 80048; 85025; 99283

== ENCOUNTER 2022-07-03 23:08 | Emergency (ER) | payer OTHER, SELFPAY ==
--- NOTE | 2022-07-03 23:12 | DI.RAD.S_ITS ---
PROCEDURE: XR ELBOW LT MIN 3V INDICATIONS: pain after fall TECHNIQUE: 3 views of the elbow were acquired. COMPARISON: None. FINDINGS: Bones: No fractures or dislocations. No suspicious bony lesions. Soft tissues: No elbow joint effusion. No suspicious soft tissue calcifications. IMPRESSION: 1. No fracture or dislocation. Dictated by: Cuba Villanueva M.D. on 07/03/2022 at 23:50 Approved by: Cuba Villanueva M.D. on 07/03/2022 at 23:50
[2022-07-03 23:17] VITALS: BP 126/76; PULSE 74; RESP 20; TEMP 36.8; O2SAT 99; BMI 27.4
--- NOTE | 2022-07-03 23:21 | ED.GENADULT ---
HPI - General Adult General Chief complaint: Extremity Injury, Upper Stated complaint: possible broken arm lt from fall down stairs Time Seen by Provider: 07/03/22 23:09 Source: patient Mode of arrival: Ambulatory Limitations: no limitations History of Present Illness HPI narrative: Patient is a 22-year-old female here for evaluation of a left elbow injury. She states that prior to arrival she was coming down some stairs when her knee gave out and she hit her left elbow on the railing and then on the wall. She reports no other injuries from the event. She states her hand got cold and was tingling afterwards but that has since improved. She is able to flex her elbow. She reports no left wrist or shoulder discomfort. There was no loss of consciousness. Did not hit her head. Related Data Home Medications Medication Instructions Recorded Confirmed Vitamin 1 tab PO DAILY 12/11/21 04/10/22 quetiapine 100 mg tablet mg PO 1XD bipolar II disorder 04/10/22 Previous Rx's Medication Instructions Recorded ibuprofen 600 mg tablet 600 mg PO Q6HR PRN pain #60 tabs 04/13/22 oxycodone 5 mg tablet See Rx Instructions .Route 04/13/22 .COMPLEX PRN Pain, Moderate (4-6) #20 tabs Allergies Allergy/AdvReac Type Severity Reaction Status Date / Time sumatriptan Allergy Unknown Verified 07/03/22 23:25 nickel Allergy Verified 07/03/22 23:25 Review of Systems Constitutional Constitutional: Reports system reviewed and no additional complaints, except as documented Musculoskeletal Musculoskeletal: Reports system reviewed and no additional complaints, except as documented Integumentary/Breasts Skin/Breast: Reports system reviewed and no additional complaints, except as documented Neurologic Neurologic: Reports system reviewed and no additional complaints, except as documented Patient History Medical History Bipolar II disorder COVID Migraine Patellar tendonitis of right knee Family History (Updated 04/10/22 @ 07:47 by Jo Ann Amado CNM) Mother Endometriosis Depression Bipolar affect, depressed Father Substance use disorder Brother Depression Anxiety Schizophrenia Social History marital status: household members: spouse lives independently: Yes housing: apartment occupational status: employed Previous occupational history: [employer] Smoking Status: Never smoker Smoking Status: Never smoker alcohol intake frequency: 0-2 drinks per day Substance Use Type: does not use Exam Initial Vital Signs Initial Vital Signs: Vital Signs Temperature 98.3 F 07/03/22 23:17 Pulse Rate 74 07/03/22 23:17 Respiratory Rate 20 07/03/22 23:17 Blood Pressure 126/76 07/03/22 23:17 Pulse Oximetry 99 07/03/22 23:17 Oxygen Delivery Method 07/03/22 23:17 Skin Other: Small contusion over lateral aspect of left elbow. Neuro Sensory Exam: no sensory deficits noted Extrem Other: Left shoulder and left wrist are unremarkable. Patient is able to flex and extend the left elbow without discomfort. Course Orders Ordered: ED Orders 07/03/22 23:12 XR elbow LT min 3V Stat Vital Signs Vital signs: Vital Signs - 8 hr 07/03/22 23:17 Temperature 98.3 F Pulse Rate 74 Respiratory Rate 20 Blood Pressure 126/76 Pulse Oximetry 99 Oxygen Delivery Method Room Air Medical Decision Making Imaging Data Extremity x-ray #1: Radiologist's Impression: PROCEDURE:? XR ELBOW LT MIN 3V ? INDICATIONS:? pain after fall ? TECHNIQUE:? 3 views of the elbow were acquired.? ? COMPARISON:? None. ? FINDINGS:? ? Bones:? No fractures or dislocations.? No suspicious bony lesions.? ? Soft tissues:? No elbow joint effusion.? No suspicious soft tissue calcifications.? ? ? IMPRESSION:? ? 1. No fracture or dislocation. MDM Narrative Medical decision making narrative: Patient is neurovascularly intact. There is no fractures nor dislocations noted on the x-rays. There is a small contusion over the left elbow. Provided reassurance the patient. No further workup required in the emergency department. Discussed return precautions and follow-up instructions. She expressed understanding and agreement. Discharge Plan Departure Patient Disposition: Home Clinical Impression: Contusion of elbow, left Instructions: How To Perform RICE (Rest, Ice, Compress, Elevate) Activity Restrictions/Additional Instructions: Recommend that you continue to take all of your medications as directed. There were no fractures or dislocations noted on the x-ray. You have no restrictions on your activities. Return to the emergency department for new symptoms. Prescriptions: No Action Vitamin 1 tab PO DAILY quetiapine 100 mg tablet PO 1XD Label Comments: TAKE 1 TABLET BY MOUTH EVERY NIGHT ibuprofen 600 mg Tablet 600 mg PO Q6HR PRN (Reason: pain) Qty: 60 0RF oxycodone 5 mg Tablet See Rx Instructions .ROUTE .COMPLEX PRN (Reason: Pain, Moderate (4-6)) Qty: 20 0RF Rx Instructions: 1-2 tablets every 4-6 hours as needed for pain. Maximum 6 tablets daily Referrals: ProviderMargot [Primary Care Provider] - Stand Alone Forms: Patient Portal/API
== END 2022-07-04 00:20 | disposition home or self-care (01) ==
PROVIDERS: Emergency Provider Emergency Medicine
DX: S50.02XA Contusion of left elbow, initial encounter (principal); W10.9XXA Fall (on) (from) unspecified stairs and steps, initial encounter
CPT/HCPCS: 73080; 99281; 99283

== ENCOUNTER 2022-07-14 09:26 | Emergency (ER) | payer OTHER, SELFPAY ==
[2022-07-14 09:36] VITALS: BP 117/65; PULSE 68; RESP 16; TEMP 36.6; O2SAT 99; BMI 27.4
--- NOTE | 2022-07-14 12:51 | ED.BACK ---
HPI - Back Pain/Injury <Lydia Lin PA-C - Last Filed: 07/14/22 14:22> General Chief Complaint: Back Pain/Injury Stated Complaint: back pain T-1 Time Seen by Provider: 07/14/22 12:11 History of Present Illness HPI Narrative: 22-year-old female with past medical history migraines presents to the ED with 2 days of lower back pain. Patient states that she bent forward yesterday, following which she heard a pop and since then has had lower back pain, trouble straightening up. Patient denies urinary hesitancy, saddle paresthesias, numbness, tingling, weakness. The pain does not radiate. Patient is currently . Related Data Home Medications Medication Instructions Recorded Confirmed Vitamin 1 tab PO DAILY 12/11/21 04/10/22 quetiapine 100 mg tablet mg PO 1XD bipolar II disorder 04/10/22 Previous Rx's Medication Instructions Recorded ibuprofen 600 mg tablet 600 mg PO Q6HR PRN pain #60 tabs 04/13/22 oxycodone 5 mg tablet See Rx Instructions .Route 04/13/22 .COMPLEX PRN Pain, Moderate (4-6) #20 tabs Allergies Allergy/AdvReac Type Severity Reaction Status Date / Time sumatriptan Allergy Unknown Anaphylaxis Verified 07/14/22 09:39 nickel Allergy Rash Verified 07/14/22 09:39 Review of Systems <Lydia Lin PA-C - Last Filed: 07/14/22 14:22> Review of Systems ROS Unobtainable: All systems reviewed & are unremarkable except as noted in HPI and below Constitutional Constitutional: Denies chills, Denies fatigue, Denies fever(s), Denies frequent falls, Denies lethargy and Denies weakness Eyes Eyes: Denies change in vision, Denies eye discharge, Denies irritation and Denies loss of vision ENT Ears, Nose, Mouth, and Throat: Denies change in voice, Denies dizziness, Denies neck pain, Denies sore throat and Denies throat swelling Cardiovascular Cardiovascular: Denies chest pain, Denies irregular heart rhythm, Denies lightheadedness, Denies palpitations, Denies dyspnea, Denies dyspnea on exertion and Denies orthopnea Respiratory Respiratory: Denies cough, Denies dyspnea, Denies dyspnea on exertion and Denies wheezing Gastrointestinal Gastrointestinal: Denies abdominal pain, Denies change in bowel habits, Denies diarrhea, Denies nausea and Denies vomiting Genitourinary Genitourinary: Denies hematuria, Denies flank pain, Denies urinary incontinence and Denies urinary urgency Musculoskeletal Musculoskeletal: Reports back pain, Denies muscle weakness, Denies neck pain, Denies numbness and Denies tingling Integumentary/Breasts Skin/Breast: Denies pruritus, Denies erythema, Denies rash and Denies wounds Neurologic Neurologic: Denies behavioral changes, Denies confusion, Denies dizziness, Denies frequent falls, Denies loss of vision, Denies numbness, Denies tingling and Denies weakness Psychiatric Psychiatric: Denies anxiety, Denies behavioral changes, Denies confusion, Denies depression, Denies homicidal ideation and Denies suicidal ideation Endocrine Endocrine: Denies fatigue, Denies flushing and Denies palpitations Hematologic/Lymphatic Hematologic/Lymphatic: Denies easy bruising Allergic/Immunologic Allergic/Immunologic: Denies urticaria, Denies throat swelling and Denies wheezing Patient History <Lydia Lin PA-C - Last Filed: 07/14/22 14:22> Medical History Bipolar II disorder COVID Migraine Patellar tendonitis of right knee Family History Mother Endometriosis Depression Bipolar affect, depressed Father Substance use disorder Brother Depression Anxiety Schizophrenia Social History marital status: household members: spouse lives independently: Yes housing: apartment occupational status: employed Previous occupational history: [employer] Smoking Status: Never smoker Smoking Status: Never smoker alcohol intake frequency: 0-2 drinks per day Substance Use Type: does not use Exam <Lydia Lin PA-C - Last Filed: 07/14/22 14:22> Narrative Exam Narrative: Const General:?cooperative, healthy appearing and comfortable [facility] Head:?normal to inspection Ears:?hearing grossly normal bilaterally Nose:?external nose normal Face and sinus:?normal facial exam and sinuses nontender Mouth:?oral mucosae normal Throat:?posterior oropharynx normal Eyes General:?appearance normal, both eyes and all related structures Neck Neck:?normal visual inspection and no lymphadenopathy noted Resp Effort & Inspection:?normal respiratory effort Auscultation:?clear to auscultation bilaterally Cardio Rate:?regular rate Rhythm:?regular rhythm Musculoskeletal There is no midline tenderness to palpation. There is no paraspinal tenderness to palpation. Strength and sensation is intact. There is full range of motion. Patient is neurovascularly intact. Gait is normal. Neuro General:?patient alert, patient awake and patient oriented x3 Initial Vital Signs Initial Vital Signs: Vital Signs Temperature 98 F 07/14/22 09:36 Pulse Rate 68 07/14/22 09:36 Respiratory Rate 16 07/14/22 09:36 Blood Pressure 117/65 07/14/22 09:36 Pulse Oximetry 99 07/14/22 09:36 Oxygen Delivery Method Room Air 07/14/22 09:36 <Yesika Dennis DO - Last Filed: 07/14/22 18:30> Initial Vital Signs Initial Vital Signs: Vital Signs Temperature 98 F 07/14/22 09:36 Pulse Rate 68 07/14/22 09:36 Respiratory Rate 16 07/14/22 09:36 Blood Pressure 117/65 07/14/22 09:36 Pulse Oximetry 99 07/14/22 09:36 Oxygen Delivery Method Room Air 07/14/22 09:36 Course <Lydia Lin PA-C - Last Filed: 07/14/22 14:22> Orders Ordered: Discontinued Medications Cyclobenzaprine HCl (Cyclobenzaprine 10 Mg Tablet) 10 mg PO NOW ONE Stop: 07/14/22 13:01 Last Admin: 07/14/22 14:10 Dose: Not Given Documented By: ALVARADO Ketorolac Tromethamine (Ketorolac 30 Mg/Ml Vial) 30 mg IM NOW ONE Stop: 07/14/22 13:01 Last Admin: 07/14/22 13:39 Dose: 30 mg Documented By: BS Vital Signs Vital signs: Vital Signs - 8 hr 07/14/22 14:35 Pulse Rate 70 Respiratory Rate 16 Blood Pressure 107/63 Pulse Oximetry 99 Oxygen Delivery Method Room Air <Yesika Dennis DO - Last Filed: 07/14/22 18:30> Orders Ordered: Discontinued Medications Cyclobenzaprine HCl (Cyclobenzaprine 10 Mg Tablet) 10 mg PO NOW ONE Stop: 07/14/22 13:01 Last Admin: 07/14/22 14:10 Dose: Not Given Documented By: ALVARADO Ketorolac Tromethamine (Ketorolac 30 Mg/Ml Vial) 30 mg IM NOW ONE Stop: 07/14/22 13:01 Last Admin: 07/14/22 13:39 Dose: 30 mg Documented By: ALVARADO Vital Signs Vital signs: Vital Signs - 8 hr 07/14/22 14:35 Pulse Rate 70 Respiratory Rate 16 Blood Pressure 107/63 Pulse Oximetry 99 Oxygen Delivery Method Room Air MDM - Back Pain/Injury <Lydia Lin PA-C - Last Filed: 07/14/22 14:22> MDM Narrative Medical decision making narrative: 22-year-old female with past medical history migraines presents to the ED with 2 days of lower back pain. Physical exam is reassuring. There is no midline or paraspinal tenderness to palpation. No saddle paresthesias, urinary hesitancy, other red flags. Patient's symptoms likely due to a musculoskeletal sprain/strain. No imaging indicated at this point. Will treat pain with Toradol, Flexeril. Patient declined Flexeril, took the Toradol with good relief. Recommend continued use of ibuprofen, Tylenol for back pain. Counseled patient on safety with . ED return precautions were discussed with patient. Patient verbalized understanding. Medical records reviewed: Yes Discharge Plan Departure Patient Disposition: Home Clinical Impression: Lower back pain Instructions: DI for Back Strain or Sprain Activity Restrictions/Additional Instructions: You were evaluated in the ED today for lower back pain. Your physical exam was reassuring. Your symptoms improved with Toradol. Your symptoms are likely due to a musculoskeletal sprain/strain. You may continue to take ibuprofen, Tylenol at home for the pain, both of which are safe while . Return to the ED if you have any numbness, tingling, weakness. Prescriptions: No Action Vitamin 1 tab PO DAILY quetiapine 100 mg tablet PO 1XD Patient Comments: TAKE 1 TABLET BY MOUTH EVERY NIGHT ibuprofen 600 mg Tablet 600 mg PO Q6HR PRN (Reason: pain) Qty: 60 0RF oxycodone 5 mg Tablet See Rx Instructions .ROUTE .COMPLEX PRN (Reason: Pain, Moderate (4-6)) Qty: 20 0RF Rx Instructions: 1-2 tablets every 4-6 hours as needed for pain. Maximum 6 tablets daily Referrals: ProviderMargot [Primary Care Provider] - Stand Alone Forms: Patient Portal/API <Yesika Dennis DO - Last Filed: 07/14/22 18:30> Cosign ED Attending Cosignature Attestation: I was immediately available in the department for consultation. Documentation has been reviewed.
[2022-07-14] MEDS: KETOROLAC 30 MG/ML VIAL IM (13:39)
[2022-07-14 14:35] VITALS: BP 107/63; PULSE 70; RESP 16; O2SAT 99
== END 2022-07-14 14:35 | disposition home or self-care (01) ==
PROVIDERS: Emergency Provider Student in an Organized Health Care Education/Training Program
DX: M54.50 Low back pain, unspecified (principal)
CPT/HCPCS: 96372; 99283; J1885

== ENCOUNTER 2022-09-19 10:18 | Emergency (ER) | payer OTHER, SELFPAY ==
[2022-09-19 10:21] VITALS: BP 99/62; PULSE 83; RESP 15; TEMP 36.4; O2SAT 99; BMI 26.6
[2022-09-19 12:44] VITALS: BP 113/82; PULSE 86; O2SAT 99
[2022-09-19 13:00] VITALS: BP 104/71; PULSE 88; O2SAT 100
--- NOTE | 2022-09-19 13:19 | ED.NAVMDI ---
HPI - Nausea/Vomiting/Diarrhea <Areli Qureshi PA-C - Last Filed: 09/19/22 13:44> General Chief complaint: Nausea/Vomiting/Diarrhea Stated complaint: possible food poisoning Time Seen by Provider: 09/19/22 12:40 Source: patient Mode of arrival: Ambulatory History of Present Illness HPI Narrative: 22-year-old female presents with concern for being up all night with vomiting and diarrhea. Patient states that she thinks she ate some bad potatoes yesterday they had been in the Fridge for a few days she is the only 1 that ate them and around 6 or so hours later she started having nausea vomiting and diarrhea that came on pretty much all at once. She is also been having some crampy abdominal pain associated with this. She states it was happening all night long and kept her up most of the night but since 5:00 a.m. she has not had any additional vomiting or diarrhea. She still endorses some mild abdominal discomfort but states it seems to be associated with the vomiting and the diarrhea. She does not feel her abdominal pain has been worsening or has been severe, she does have Zofran at home but did not take any. She states that her commander is requiring a note for her since she had to call out today. She also does note that she had some cloudy urine few days ago but denies urgency frequency or pain with urination. She also denies recent illness, fevers chills or other symptoms. Related Data Home Medications Medication Instructions Recorded Confirmed Vitamin 1 tab PO DAILY 12/11/21 04/10/22 quetiapine 100 mg tablet mg PO 1XD bipolar II disorder 04/10/22 Previous Rx's Medication Instructions Recorded ibuprofen 600 mg tablet 600 mg PO Q6HR PRN pain #60 tabs 04/13/22 oxycodone 5 mg tablet See Rx Instructions .Route 04/13/22 .COMPLEX PRN Pain, Moderate (4-6) #20 tabs Allergies Allergy/AdvReac Type Severity Reaction Status Date / Time sumatriptan Allergy Unknown Anaphylaxis Verified 09/19/22 10:21 nickel Allergy Rash Verified 09/19/22 10:21 Review of Systems <Areli Qureshi PA-C - Last Filed: 09/19/22 13:44> Review of Systems Narrative: See HPI Patient History <Areli Qureshi PA-C - Last Filed: 09/19/22 13:44> Medical History Bipolar II disorder COVID Migraine Patellar tendonitis of right knee Family History Mother Endometriosis Depression Bipolar affect, depressed Father Substance use disorder Brother Depression Anxiety Schizophrenia Social History marital status: household members: spouse lives independently: Yes housing: apartment occupational status: employed Previous occupational history: [employer] Smoking Status: Never smoker Smoking Status: Never smoker alcohol intake frequency: holidays/special occasions only Substance Use Type: does not use Exam <Areli Qureshi PA-C - Last Filed: 09/19/22 13:44> Narrative Exam Narrative: GENERAL: 22 year old patient appears stated age. Well-developed patient, in mild distress, well-appearing. HEAD: Atraumatic. Normocephalic. EYES: Pupils equal round and reactive. Extraocular motions intact. No scleral icterus. No injection or drainage. ENT: Nose without bleeding, purulent drainage. Airway patent. NECK: Trachea midline. CARDIOVASCULAR: Regular rate and rhythm without murmurs, gallops, or rubs. RESPIRATORY: Clear to auscultation. Breath sounds equal bilaterally. No wheezes, rales, or rhonchi. GASTROINTESTINAL: Abdomen soft, mild generalized discomfort with palpation, non-tender, nondistended. EXTREMITIES: No edema or joint tenderness. BACK: Nontender without deformity or crepitance. No flank tenderness. NEURO: AOx3. SKIN: No rash or erythema of visible areas Initial Vital Signs Initial Vital Signs: Vital Signs Temperature 97.5 F L 09/19/22 10:21 Pulse Rate 83 09/19/22 10:21 Respiratory Rate 15 09/19/22 10:21 Blood Pressure 99/62 09/19/22 10:21 Pulse Oximetry 99 09/19/22 10:21 Oxygen Delivery Method Room Air 09/19/22 10:21 <Yesika Dennis DO - Last Filed: 09/20/22 13:07> Initial Vital Signs Initial Vital Signs: Vital Signs Temperature 97.5 F L 09/19/22 10:21 Pulse Rate 83 09/19/22 10:21 Respiratory Rate 15 09/19/22 10:21 Blood Pressure 99/62 09/19/22 10:21 Pulse Oximetry 99 09/19/22 10:21 Oxygen Delivery Method Room Air 09/19/22 10:21 Course <Areli Qureshi PA-C - Last Filed: 09/19/22 13:44> Vital Signs Vital signs: Vital Signs - 8 hr 09/19/22 10:21 09/19/22 12:44 Temperature 97.5 F L Pulse Rate 83 86 Respiratory Rate 15 Blood Pressure 99/62 Pulse Oximetry 99 99 Oxygen Delivery Method Room Air <Yesika Dennis DO - Last Filed: 09/20/22 13:07> Vital Signs Vital signs: Vital Signs - 8 hr 09/19/22 10:21 09/19/22 12:44 Temperature 97.5 F L Pulse Rate 83 86 Respiratory Rate 15 Blood Pressure 99/62 Pulse Oximetry 99 99 Oxygen Delivery Method Room Air MDM - Nausea/Vomiting/Diarrhea <Areli Qureshi PA-C - Last Filed: 09/19/22 13:44> Differential Diagnosis Differential diagnosis: Likely food poisoning, gastroenteritis and other (uti) Lab Data Attestation: I reviewed the patient's lab results. Labs: Point of Care Testing Test Results Negative Urine Dip Bedside Urine Glucose Negative Bedside Urine Bilirubin - Negative Bedside Urine Ketone - Negative Urine Specific Curran 1.020 Bedside Urine Occult Blood - Negative Bedside Urine pH 6.0 Bedside Urine Protein - Negative Bedside Urine Urobilinogen - Negative Bedside Urine Nitrite - Negative Bedside Urine Leukocytes - Negative Esterase Treatment and disposition Shared decision making:: Shared decision-making was used in determining plan of care and outpatient follow-up plan [facility] Narrative Medical decision making narrative: This is a well-appearing 22-year-old female who presents with her partner in young child with concern for nausea vomiting and diarrhea all night. Symptoms have resolved since 5:00 a.m. she thinks she ate some bad potatoes last night. She has not had any blood or mucus in her stool, she does not have persistent symptoms and she states she has been drinking fluids this morning without a problem. Her abdominal exam is unremarkable and I have low suspicion for acute intra-abdominal process. Patient did endorse some cloudy urine recently and UAs checked for possible UTI. Urine dip is negative and it was not sent for culture. Work note is provided for the patient. Discussed possibly providing Zofran however the patient does have this medication at home should she need it. Discussed return precautions, follow-up plan discussed, all questions answered. <Yesika Dennis DO - Last Filed: 09/20/22 13:07> Lab Data Labs: Point of Care Testing Test Results Negative Urine Dip Bedside Urine Glucose Negative Bedside Urine Bilirubin - Negative Bedside Urine Ketone - Negative Urine Specific Curran 1.020 Bedside Urine Occult Blood - Negative Bedside Urine pH 6.0 Bedside Urine Protein - Negative Bedside Urine Urobilinogen - Negative Bedside Urine Nitrite - Negative Bedside Urine Leukocytes - Negative Esterase Discharge Plan Departure Patient Disposition: Home Clinical Impression: Gastroenteritis Activity Restrictions/Additional Instructions: Thank you for letting us be part of your care today in the emergency department. I suspect that your symptoms are already resolving and you should be feeling better hopefully in the next 12-48 hours. You can use Zofran if needed which he already have at home. But unless you develop persistent or worsening symptoms you can discontinue with fluids and slowly reintroducing some food as tolerated. It is possible that you had a viral gastroenteritis or a mild case of food poisoning. There is no evidence of an emergent or life threatening illness at this time, but follow up with your doctor in 1-2 days is recommended nonetheless to continue to rule out serious underlying causes of your symptoms. Please call the office for an appointment. Please return to the Emergency Department for any worsening or persistent symptoms. Please take medications as directed. Prescriptions: No Action Vitamin 1 tab PO DAILY quetiapine 100 mg tablet PO 1XD Patient Comments: TAKE 1 TABLET BY MOUTH EVERY NIGHT ibuprofen 600 mg Tablet 600 mg PO Q6HR PRN (Reason: pain) Qty: 60 0RF oxycodone 5 mg Tablet See Rx Instructions .ROUTE .COMPLEX PRN (Reason: Pain, Moderate (4-6)) Qty: 20 0RF Rx Instructions: 1-2 tablets every 4-6 hours as needed for pain. Maximum 6 tablets daily Referrals: ProviderMargot [Primary Care Provider] - Stand Alone Forms: Patient Portal/API, Work Release Note <Yesika Dennis DO - Last Filed: 09/20/22 13:07> Cosign ED Attending Cosignature Attestation: I was immediately available in the department for consultation. Documentation has been reviewed.
[2022-09-19 13:54] VITALS: PULSE 80; O2SAT 99
[2022-09-19 13:55] VITALS: BP 108/65; PULSE 79; O2SAT 99
== END 2022-09-19 13:55 | disposition home or self-care (01) ==
PROVIDERS: Emergency Provider Student in an Organized Health Care Education/Training Program
DX: K52.9 Noninfective gastroenteritis and colitis, unspecified (principal)
CPT/HCPCS: 81003; 81025; 99282

== ENCOUNTER 2022-12-08 18:21 | Emergency (ER) | payer OTHER, SELFPAY ==
--- NOTE | 2022-12-08 | DI.US.S_ITS ---
PROCEDURE: US PELVIC COMPLETE INDICATIONS: PELVIC PAIN TECHNIQUE: Real-time scanning was performed of the pelvic organs, with image documentation. Additional endovaginal scanning was necessary due to incomplete visualization of the adnexal and endometrial structures by transabdominal scanning. COMPARISON: None. FINDINGS: Uterus: Uterus is retroverted and measures 7.0 x 4.4 x 5.8 cm. The endometrium is thickened, measuring up to 1.2 cm. An IUD appears in appropriate position, extending into the fundal endometrium. Ovaries: The right ovary measures 2.5 x 2.0 x 3.2 cm, with a calculated ovarian volume of 8.5 cc. The left ovary measures 2.8 x 2.5 x 2.8 cm, with a calculated ovarian volume of 10.4 cc. The ovaries have a normal sonographic appearance. Less than 12 follicles can be seen in each ovary. No adnexal masses are seen. There is a thick-walled cyst in the left ovary measuring up to approximately 1.4 cm likely representing a corpus luteum. There is patent arterial and venous flow in the ovaries. Other: There is a small to moderate amount of free fluid in the pelvis with small foci of internal echogenic debris. IMPRESSION: 1. IUD appears in appropriate position. 2. Thick-walled cyst in the left ovary likely represents a corpus luteum. 3. Small to moderate amount of free fluid in the pelvis with internal echogenic debris may reflect sequelae of recent cyst rupture. 4. No evidence of ovarian torsion. We strive to produce accurate, complete, and clear reports of imaging services. To assist us in improving patient care, this report was composed using standard report templates and voice recognition software. Therefore, it may contain abnormal punctuation, insertions and/or omissions. Occasional wrong-word or sound-alike substitutions may occur. Though we review the report and make efforts to correct it, we do recommend that the report be read carefully in proper context to recognize any text inaccuracies. Dictated by: Cuba Villanueva M.D. on 12/08/2022 at 22:19 Approved by: Cuba Villanueva M.D. on 12/08/2022 at 22:22
[2022-12-08 18:28] VITALS: BP 131/80; PULSE 94; RESP 14; TEMP 36.4; O2SAT 99; BMI 26.6
[2022-12-08 19:09] LABS: Bacteria Urine None Seen; Culture Indicated Urine Cult Not Indicated; RBC Urine 10-30/HPF (0-5/HPF); Squamous Epithelial Cell Urine None Seen (0-5/HPF); WBC Urine None Seen (0-5/HPF)
--- NOTE | 2022-12-08 19:54 | DI.US.S_ITS ---
PROCEDURE: US RENAL COMPLETE INDICATIONS: HEMATURIA TECHNIQUE: Real-time scanning was performed of the kidneys and bladder, with image documentation. COMPARISON: None. FINDINGS: Kidneys: Right kidney measures 9.2 cm long; left kidney measures 11.3 cm long. Right renal cortical thickness is 1.2 cm; left renal cortical thickness is 2.1 cm. Renal cortical echotexture is normal. No hydronephrosis or shadowing nephrolithiasis. No suspicious solid mass lesions. Bladder: Bladder volume is 5.8 mL. Patient voided prior to study. No definite intraluminal masses or stones. Neither ureteral jet noted with color Doppler interrogation. (Of note, ureteral jets may not be detectable in up to 25% of cases due to insufficient differences in specific gravity between ureteral and bladder urine). Miscellaneous: No free pelvic fluid. IMPRESSION: 1. No evidence of a nephrosis. 2. No discrete shadowing renal stones. 3. Limited evaluation of the bladder due to nondistention. Dictated by: Cuba Villanueva M.D. on 12/08/2022 at 22:18 Approved by: Cuba Villanueva M.D. on 12/08/2022 at 22:19
[2022-12-08 20:21] LABS: Add Manual Diff / Slide Review NO; Basophils Absolute Auto 0 /uL (0-100); Basophils Percent Auto 0.4 % (0-2); Eosinophils Absolute Auto 100 /uL (0-450); Eosinophils Percent Auto 0.7 % (2-4); Hematocrit 39.3 % (36-46); Lymphocytes Absolute Auto 2000 /uL (1100-4500); Lymphocytes Percent Auto 20.9 % (25-40); Mean Corpuscular HGB Conc 35.7 % (30-36); Mean Corpuscular Volume 84.1 fL (80-100); Monocytes Absolute Auto 500 /uL (0-900); Monocytes Percent Auto 5.3 % (3-14); Neutrophils Absolute Auto 6900 /uL (1500-7000); Neutrophils Percent Auto 72.7 % (50-75); Platelet Count 241 X10^3/uL (150-400); Red Blood Cell Count 4.68 X10^6/uL (4.0-5.2); Red Cell Distribution Width 12.6 % (11.6-14.8); White Blood Cell Count 9.5 X10^3/uL (4.5-11.0)
[2022-12-08 20:40] LABS: Alanine Aminotransferase 19 IU/L (<35); Albumin 4.5 g/dL (3.5-5.0); Albumin Globulin Ratio 1.4 (1.0-2.8); Alkaline Phosphatase 76 U/L (38-126); Aspartate Aminotransferase 29 IU/L (14-36); BUN Creatinine Ratio 16.9 (6-22); Bilirubin Total 0.4 mg/dL (0.2-1.3); Blood Urea Nitrogen 15 mg/dL (7-17); Calcium 9.1 mg/dL (8.4-10.2); Carbon Dioxide 27 mmol/L (22-32); Chloride 104 mmol/L (98-107); Estimated Glomerular Filt Rate > 60 mL/min (>60); Globulin 3.3 g/dL (1.7-4.1); Glucose 87 mg/dL (70-100); HEMOLYSIS < 15 (0-50); Potassium 3.5 mmol/L (3.4-5.1); Sodium 137 mmol/L (137-145); Total Protein 7.8 g/dL (6.3-8.2)
--- NOTE | 2022-12-08 20:52 | ED.GENADULT ---
HPI - General Adult General Chief complaint: Urogenital-Female Stated complaint: blood in urine/painful Time Seen by Provider: 12/08/22 18:38 Source: patient Mode of arrival: Ambulatory History of Present Illness HPI narrative: 22-year-old woman with dysuria, frequency, urgency, microscopic hematuria appreciated on repeat urine testing for at least the last 3 months with none of the testing suggesting that she has a urinary tract infection. At 1 point she did have some mild vaginal discharge and was treated for bacterial vaginosis which helped the dysuria slightly. She has an IUD in place, no new recent sexual partners, no significant vaginal discharge at this time and presents with complaints of dramatic frequency with mild urgency and now with dysuria. Related Data Home Medications Medication Instructions Recorded Confirmed Vitamin 1 tab PO DAILY 12/11/21 04/10/22 quetiapine 50 mg tablet 150 mg PO DAILY 12/08/22 12/08/22 Previous Rx's Medication Instructions Recorded ibuprofen 600 mg tablet 600 mg PO Q6HR PRN pain #60 tabs 04/13/22 oxycodone 5 mg tablet See Rx Instructions .Route 04/13/22 .COMPLEX PRN Pain, Moderate (4-6) #20 tabs doxycycline hyclate 100 mg capsule 100 mg PO BID #28 caps 12/08/22 metronidazole 500 mg tablet 500 mg PO BID #28 tabs 12/08/22 oxybutynin chloride 10 mg 10 mg PO DAILY #30 tabs 12/08/22 tablet,extended release 24 hr Allergies Allergy/AdvReac Type Severity Reaction Status Date / Time sumatriptan Allergy Unknown Anaphylaxis Verified 12/08/22 19:02 nickel Allergy Rash Verified 12/08/22 19:02 Review of Systems Review of Systems Narrative: Pertinent positive and negative findings as per HPI Patient History Medical History Bipolar II disorder COVID Migraine Patellar tendonitis of right knee Family History Mother Endometriosis Depression Bipolar affect, depressed Father Substance use disorder Brother Depression Anxiety Schizophrenia Social History marital status: household members: spouse lives independently: Yes housing: apartment occupational status: employed Previous occupational history: [employer] Smoking Status: Never smoker Smoking Status: Never smoker alcohol intake frequency: holidays/special occasions only Substance Use Type: does not use Exam Initial Vital Signs Initial Vital Signs: Vital Signs Temperature 97.5 F L 12/08/22 18:28 Pulse Rate 94 H 12/08/22 18:28 Respiratory Rate 14 12/08/22 18:28 Blood Pressure 131/80 12/08/22 18:28 Pulse Oximetry 99 12/08/22 18:28 Oxygen Delivery Method Room Air 12/08/22 18:28 General: Alert appropriate in no acute distress Respiratory: Able to speak in full sentences, no obvious respiratory distress Skin: No obvious rashes, warm and dry Neurologic: Grossly intact no obvious asymmetries or abnormalities Psych: appropriate insight and affect, cooperative Pelvic exam: Healthy appearing external genitalia, no lesions no discharge normal-appearing urethral orifice. Minimal cervical motion tenderness with a midposition 8 week size uterus. Moderate bilateral adnexal pain. Course Orders Ordered: ED Orders 12/08/22 18:40 Urine Microscopic Stat 12/08/22 19:26 Chlamydia Gonorrhea PCR -URINE Stat 12/08/22 19:54 US renal complete Stat 12/08/22 20:10 Complete Blood Count AUTO DIFF Stat Comprehensive Metabolic Panel Stat 12/08/22 20:49 Urine Culture Stat 12/08/22 21:10 Wet Prep Tric BV Ariane Stat Discontinued Medications Ceftriaxone Sodium (Ceftriaxone 1,000 Mg Vial) 500 mg IM NOW ONE Stop: 12/08/22 21:42 Last Admin: 12/08/22 21:48 Dose: 500 mg Documented By: Lidocaine HCl (Lidocaine 1% (Pf) 5 Ml) 2.1 ml INJ NOW ONE Stop: 12/08/22 21:42 Last Admin: 12/08/22 21:47 Dose: 2.1 ml Documented By: Vital Signs Vital signs: Vital Signs - 8 hr 12/08/22 18:28 12/08/22 20:55 12/08/22 21:54 Temperature 97.5 F L Pulse Rate 94 H 86 70 Respiratory Rate 14 14 14 Blood Pressure 131/80 122/73 100/67 Pulse Oximetry 99 99 98 Oxygen Delivery Method Room Air Room Air Room Air Medical Decision Making Lab Data 12/08/22 20:10 12/08/22 20:10 Labs: Lab Results 12/08/22 12/08/22 12/08/22 Range/Units 18:40 19:26 20:10 WBC (4.5-11.0) X10^3/uL RBC (4.0-5.2) X10^6/uL Hgb (12.0-16.0) g/dL Hct (36-46) % MCV (80-100) fL MCH (26-34) PG MCHC (30-36) % RDW (11.6-14.8) % Plt Count (150-400) X10^3/uL Neut % (Auto) (50-75) % Lymph % (Auto) (25-40) % Davis % (Auto) (3-14) % Eos % (Auto) (2-4) % Baso % (Auto) (0-2) % Neut # (Auto) (8092-9512) /uL Lymph # (Auto) (7247-8272) /uL Davis # (Auto) (0-900) /uL Eos # (Auto) (0-450) /uL Baso # (Auto) (0-100) /uL Sodium (137-145) mmol/L Potassium (3.4-5.1) mmol/L Chloride (98-107) mmol/L Carbon Dioxide (22-32) mmol/L BUN (7-17) mg/dL Creatinine (0.52-1.04) mg/dL Estimated GFR (>60) mL/min BUN/Creatinine Ratio (6-22) Glucose (70-100) mg/dL Hemoglobin A1c Cancelled Calcium (8.4-10.2) mg/dL Total Bilirubin (0.2-1.3) mg/dL AST (14-36) IU/L ALT (<35) IU/L Alkaline Phosphatase (38-126) U/L Total Protein (6.3-8.2) g/dL Albumin (3.5-5.0) g/dL Globulin (1.7-4.1) g/dL Albumin/Globulin Ratio (1.0-2.8) Urine RBC 10-30/hpf H (0-5/HPF) Urine WBC None seen (0-5/HPF) Ur Squamous Epith Cells None seen (0-5/HPF) Urine Bacteria None seen (None) Ur Culture Indicated? Cult not indicated Ur Chlamydia DNA (PCR) Not detected N gonorrhoeae DNA (PCR) Not detected 12/08/22 12/08/22 Range/Units 20:10 20:10 WBC 9.5 (4.5-11.0) X10^3/uL RBC 4.68 (4.0-5.2) X10^6/uL Hgb 14.0 (12.0-16.0) g/dL Hct 39.3 (36-46) % MCV 84.1 (80-100) fL MCH 30.0 (26-34) PG MCHC 35.7 (30-36) % RDW 12.6 (11.6-14.8) % Plt Count 241 (150-400) X10^3/uL Neut % (Auto) 72.7 (50-75) % Lymph % (Auto) 20.9 L (25-40) % Davis % (Auto) 5.3 (3-14) % Eos % (Auto) 0.7 L (2-4) % Baso % (Auto) 0.4 (0-2) % Neut # (Auto) 6900 (8381-3791) /uL Lymph # (Auto) 2000 (2865-3323) /uL Davis # (Auto) 500 (0-900) /uL Eos # (Auto) 100 (0-450) /uL Baso # (Auto) 0 (0-100) /uL Sodium 137 (137-145) mmol/L Potassium 3.5 (3.4-5.1) mmol/L Chloride 104 (98-107) mmol/L Carbon Dioxide 27 (22-32) mmol/L BUN 15 (7-17) mg/dL Creatinine 0.89 (0.52-1.04) mg/dL Estimated GFR > 60 (>60) mL/min BUN/Creatinine Ratio 16.9 (6-22) Glucose 87 (70-100) mg/dL Hemoglobin A1c Calcium 9.1 (8.4-10.2) mg/dL Total Bilirubin 0.4 (0.2-1.3) mg/dL AST 29 (14-36) IU/L ALT 19 (<35) IU/L Alkaline Phosphatase 76 (38-126) U/L Total Protein 7.8 (6.3-8.2) g/dL Albumin 4.5 (3.5-5.0) g/dL Globulin 3.3 (1.7-4.1) g/dL Albumin/Globulin Ratio 1.4 (1.0-2.8) Urine RBC (0-5/HPF) Urine WBC (0-5/HPF) Ur Squamous Epith Cells (0-5/HPF) Urine Bacteria (None) Ur Culture Indicated? Ur Chlamydia DNA (PCR) N gonorrhoeae DNA (PCR) Point of Care Testing Test Results Negative Urine Dip Bedside Urine Glucose Negative Bedside Urine Bilirubin - Negative Bedside Urine Ketone - Negative Urine Specific [place] 1.015 Bedside Urine Occult Blood +++ Bedside Urine pH 7 Bedside Urine Protein - Negative Bedside Urine Urobilinogen - Negative Bedside Urine Nitrite - Negative Bedside Urine Leukocytes - Negative Esterase Point of care testing: Point of Care Testing Test Results Negative Urine Dip Bedside Urine Glucose Negative Bedside Urine Bilirubin - Negative Bedside Urine Ketone - Negative Urine Specific [place] 1.015 Bedside Urine Occult Blood +++ Bedside Urine pH 7 Bedside Urine Protein - Negative Bedside Urine Urobilinogen - Negative Bedside Urine Nitrite - Negative Bedside Urine Leukocytes - Negative Esterase MDM Narrative Medical decision making narrative: CC: 22-year-old woman with 3 months of microscopic hematuria persist is urgency and frequency Data collected from: patient, Social determinants of health that may influence the patients condition: Possible insurance change she is getting out of the Medical records reviewed: Prior labs are reviewed. Differential considered: Urinary tract infection, sexually transmitted infection, vaginal infection, polycystic kidney disease, interstitial cystitis, pelvic inflammatory disease, diabetes causing polyuria Exam documented above, pertinent findings include: Lab Test results independently reviewed as above. Pertinent findings: CBC is unremarkable CMP is unremarkable Hemoglobin A1c is pending glucose was 87 today Urine has red cells only will be cultured Wet prep shows no clue cells yeast or Trichomonas Independently reviewed EKG as above Imaging studies independently reviewed: Preliminary results with renal ultrasound show normal kidneys, no cysts no obvious hydronephrosis. Bladder is completely emptied. Preliminary results of pelvic ultrasound show minor amount of fluid in the cul-de-sac likely physiologic, left ovary with small likely physiologic cyst right ovary is within normal limits. IUD is appropriately placed. Discussion: 22-year-old woman with continued dysuria and frequency. She is 8 months and still . Labs are unremarkable. There is no evidence of urinary tract infection. Renal ultrasound was done and shows no significant abnormalities Pelvic ultrasound shows no significant abnormalities. She has some mild bilateral adnexal tenderness on bimanual exam. Will go ahead and treat for pelvic inflammatory disease, suspicion for gonorrhea and chlamydia are low and results of testing is not yet returned. Will also have her try a brief course of oxybutynin to see if this helps with the frequency and urgency. Possibility of diabetes is entertained and hemoglobin A1c is pending however she has a low blood sugar here in the emergency department there is no evidence of systemic infection, pyelonephritis or sepsis at this time. Wet mount is currently pending and I will call her with results. She was recently treated for bacterial vaginosis however all of her symptoms predated that diagnosis as well. [place] doctor, have given her copies lab work to share if symptoms continue after the doxycycline has been completed believe the next step in her workup is going to be urology consultation for microscopic hematuria and concern for interstitial cystitis. Discharge Plan Departure Patient Disposition: Home Clinical Impression: Frequency-urgency syndrome Hematuria Qualifiers: Hematuria type: unspecified type Qualified Code(s): R31.9 - Hematuria, unspecified Activity Restrictions/Additional Instructions: Thank you for coming in today. With continued microscopic hematuria, urinary frequency and urgency additional workup was done in the emergency department. Renal ultrasound and chemistries do not show any significant abnormalities, your creatinine and glomerular filtration rate were reassuring. There is no evidence for renal stone, hydronephrosis or polycystic kidney disease Possibility of diabetes with elevated blood sugars causing you to go to the bathroom all the time was entertained. Your blood sugar was 87, your hemoglobin A1c is pending but I do not think that diabetes is going to be a concern for you. Your urine continued to show red blood cells but no significant protein, bacteria or white blood cells. A culture has been sent to be thorough. This is not a bladder or kidney infection Your pelvic ultrasound shows normal pelvic anatomy and no significant ovarian issues. On exam you had some moderate tenderness bilaterally in your adnexa. Although your risk for sexually transmitted infection with either gonorrhea or chlamydia is low the possibility of pelvic inflammatory disease causing your symptoms remains and I am going to suggest that we treat you with doxycycline and metronidazole for 14 days along with a single dose of ceftriaxone given in the emergency department. Vaginal swabs were done in the ER and if there is evidence of yeast, bacterial vaginosis or Trichomonas I will call you at [phone] I am also going to give you a prescription for a medicine called oxybutynin. This helps with bladder spasm and may be beneficial in decreasing the urinary frequency. If this does not help do not continue. Doxycycline, metronidazoel and oxybutynin are safe with breast-feeding All prescriptions have been electronically transmitted to [facility] Please share this note along with the lab work with your primary doctor. If you are still having symptoms the next step in your workup would likely be referral to Urology and consideration of cystoscopy and interstitial cystitis. If you find that you are getting worse or develop any new symptoms, please feel free to return to the emergency department for further evaluation. Prescriptions: New oxybutynin chloride 10 mg tablet extended release 24hr 10 mg PO DAILY Qty: 30 1RF doxycycline hyclate 100 mg capsule 100 mg PO BID Qty: 28 0RF metronidazole 500 mg tablet 500 mg PO BID Qty: 28 0RF No Action Vitamin 1 tab PO DAILY ibuprofen 600 mg Tablet 600 mg PO Q6HR PRN (Reason: pain) Qty: 60 0RF oxycodone 5 mg Tablet See Rx Instructions .ROUTE .COMPLEX PRN (Reason: Pain, Moderate (4-6)) Qty: 20 0RF Rx Instructions: 1-2 tablets every 4-6 hours as needed for pain. Maximum 6 tablets daily quetiapine 50 mg tablet 150 mg PO DAILY Referrals: ProviderMargot [Primary Care Provider] - Stand Alone Forms: Patient Portal/API, Work Release Note
[2022-12-08 20:55] VITALS: BP 122/73; PULSE 86; RESP 14; O2SAT 99
[2022-12-08 20:58] LABS: Urine N gonorrhoeae NOT DETECTED
[2022-12-08 20:59] LABS: Urine Chlamydia NOT DETECTED
[2022-12-08] MEDS: LIDOCAINE 1% (PF) 5 ML 2.1 ML INJ (21:47)
[2022-12-08] MEDS: cefTRIAXone 1,000 MG VIAL 500 MG IM (21:48)
[2022-12-08 21:54] VITALS: BP 100/67; PULSE 70; RESP 14; O2SAT 98
== END 2022-12-08 21:56 | disposition home or self-care (01) ==
PROVIDERS: Emergency Provider Emergency Medicine
DX: N31.8 Other neuromuscular dysfunction of bladder (principal); R31.9 Hematuria, unspecified; R30.0 Dysuria
CPT/HCPCS: 36415; 51798; 76770; 76830; 76856; 80053; 81003; 81015; 81025; 83036; 85025; 87077; 87086; 87210; 87491; 87591; 93975; 96372; 99284; J0696

== ENCOUNTER 2022-12-17 15:01 | Emergency (ER) | payer OTHER, SELFPAY ==
[2022-12-17 14:45] VITALS: BP 137/82; PULSE 86; RESP 15; TEMP 36.9; O2SAT 98; BMI 26.6
[2022-12-17 15:40] LABS: UR Morphine/Opiate cutoff 300 Negative (Negative); Ur Creatinine Normal (Normal); Ur Specific Gravity Normal (Normal); Urine Amphetamines Negative (Negative); Urine Barbiturates Negative (Negative); Urine Benzodiazepines Negative (Negative); Urine Cocaine Negative (Negative); Urine MDMA Negative (Negative); Urine Methadone Negative (Negative); Urine Methamphetamines Negative (Negative); Urine Oxycodone Negative (Negative); Urine Phencyclidine Negative (Negative); Urine Tetrahydrocannabinol Negative (Negative); Urine Tricyclic Antidepressant Negative (Negative); Urine pH Normal (Normal)
[2022-12-17 15:51] LABS: Add Manual Diff / Slide Review NO; Basophils Absolute Auto 0 /uL (0-100); Basophils Percent Auto 0.2 % (0-2); Eosinophils Absolute Auto 0 /uL (0-450); Eosinophils Percent Auto 0.2 % (2-4); Hematocrit 39.5 % (36-46); Hemoglobin 13.6 g/dL (12.0-16.0); Lymphocytes Absolute Auto 800 /uL (1100-4500); Lymphocytes Percent Auto 6.9 % (25-40); Mean Corpuscular HGB Conc 34.5 % (30-36); Mean Corpuscular Hemoglobin 29.6 PG (26-34); Mean Corpuscular Volume 85.9 fL (80-100); Monocytes Absolute Auto 500 /uL (0-900); Monocytes Percent Auto 4.2 % (3-14); Neutrophils Absolute Auto 10300 /uL (1500-7000); Neutrophils Percent Auto 88.5 % (50-75); Platelet Count 256 X10^3/uL (150-400); Red Blood Cell Count 4.59 X10^6/uL (4.0-5.2); Red Cell Distribution Width 12.4 % (11.6-14.8); White Blood Cell Count 11.7 X10^3/uL (4.5-11.0)
[2022-12-17 16:00] LABS: Acetaminophen < 10 ug/mL (10-30); Alanine Aminotransferase 45 IU/L (<35); Albumin 4.6 g/dL (3.5-5.0); Albumin Globulin Ratio 1.6 (1.0-2.8); Alkaline Phosphatase 85 U/L (38-126); Aspartate Aminotransferase 36 IU/L (14-36); BUN Creatinine Ratio 14.8 (6-22); Bilirubin Total 0.3 mg/dL (0.2-1.3); Blood Urea Nitrogen 12 mg/dL (7-17); Calcium 8.7 mg/dL (8.4-10.2); Carbon Dioxide 26 mmol/L (22-32); Chloride 105 mmol/L (98-107); Estimated Glomerular Filt Rate > 60 mL/min (>60); Ethanol (ETOH) < 10 mg/dL; Globulin 2.9 g/dL (1.7-4.1); Glucose 113 mg/dL (70-100); HEMOLYSIS 17 (0-50); Potassium 3.7 mmol/L (3.4-5.1); Salicylate < 1.0 mg/dL (<20); Sodium 139 mmol/L (137-145); Total Protein 7.5 g/dL (6.3-8.2)
[2022-12-17 16:15] LABS: Free T4, Direct Thyroxine 1.13 ng/dL (0.78-2.19)
[2022-12-17 16:29] LABS: Amorphous Sediment Urine 3+; Bacteria Urine None Seen; RBC Urine None Seen (0-5/HPF); Squamous Epithelial Cell Urine 0-1 /HPF (0-5/HPF); WBC Urine None Seen (0-5/HPF)
[2022-12-17 16:29] LABS: Thyroid Stimulating Hormone 1.13 uIU/mL (0.47-4.68)
--- NOTE | 2022-12-17 16:59 | CM.SWNOTE ---
MEDICAL CONSULTANT Assessment Note Patient is 22 y/o female who presents via EMS due to concern for intrusive thoughts, depression and increased stress at work. 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 Patient has [employer] insurance. Patient endorses hx of OCD, PTSD, and mood disorder. Patient endorses rx for Seroquel. MEDICAL CONSULTANT meets with patient, patient presents as A/Ox4, tearful at times, euthymic, full range, congruent with mood. 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 Patient endorses that she informed provider that she has been having intrusive thoughts about hurting her baby, but thoughts have been caused by increased stress at work and patient endorsed that to request to change work stations. Patient denies SI and HI and denies any intent or plan. Patient endorses concern for feeling targeted, judged and threatened as her commanding officer said they were going to take their baby away. Patient endorses her dedication as a mother. When spouse and baby arrive, MEDICAL CONSULTANT observes patient and spouse attend to baby's needs and there was no concern. 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 Patient endorses she feels supportive by spouse. Patient endorses interest in civilian MH providers. Patient endorses safety upon d/c, it is the opinion of this MEDICAL CONSULTANT that patient is safe to d/c to home with family. MEDICAL CONSULTANT provides patient with list of MH providers that accept her insurance and crisis contacts, ED provider provides patient with work note for a few days. Plan: patient to d/c to home with family, patient to f/u with outpatient providers. FREDI Mccartney
--- NOTE | 2022-12-17 17:54 | ED_ITS ---
HPI - Psych <Areli Briones PA-C - Last Filed: 12/17/22 18:02> General Chief Complaint: Psychiatric Symptoms Stated Complaint: Panic attack,hx depression Time Seen by Provider: 12/17/22 16:28 Source: patient and EMS Mode of arrival: EMS History of Present Illness HPI Narrative: 22-year-old female with a history of depression and PTSD presents after an episode today where she developed shortness of breath, racing heart rate, numb and tingling extremities, cramping in her hands. This was preceded by a discussion with her superior in regards to a conversation she had yesterday asking for some help for her mental health from another person in the [place]. Reportedly, her superior today told her that if she did not get it together they would take her child away from her. She does not currently have any of the symptoms, and is not short of breath or having any chest pain. She takes Seroquel which she reports has helped with her depression and gabapentin for her chronic migraines, which she thinks does not help. Chart review shows a history of bipolar 2 disorder. She denies any suicidal thoughts or thoughts of harming anyone else. She specifically denies thoughts of harming her baby. She is accompanied today by her partner, who is the father of her 8-month-old baby. Related Data Home Medications Medication Instructions Recorded Confirmed Vitamin 1 tab PO DAILY 12/11/21 04/10/22 quetiapine 50 mg tablet 150 mg PO DAILY 12/08/22 12/08/22 Previous Rx's Medication Instructions Recorded ibuprofen 600 mg tablet 600 mg PO Q6HR PRN pain #60 tabs 04/13/22 oxycodone 5 mg tablet See Rx Instructions .Route 04/13/22 .COMPLEX PRN Pain, Moderate (4-6) #20 tabs doxycycline hyclate 100 mg capsule 100 mg PO BID #28 caps 12/08/22 metronidazole 500 mg tablet 500 mg PO BID #28 tabs 12/08/22 oxybutynin chloride 10 mg 10 mg PO DAILY #30 tabs 12/08/22 tablet,extended release 24 hr Allergies Allergy/AdvReac Type Severity Reaction Status Date / Time sumatriptan Allergy Severe Anaphylaxis Verified 12/30/22 10:40 nickel Allergy Rash Verified 12/30/22 10:37 Review of Systems <Areli Briones PA-C - Last Filed: 12/17/22 18:02> Review of Systems ROS Unobtainable: All systems reviewed & are unremarkable except as noted in HPI and below Patient History <Areli Briones PA-C - Last Filed: 12/17/22 18:02> Medical History Bipolar II disorder COVID Migraine Patellar tendonitis of right knee Family History Mother Endometriosis Depression Bipolar affect, depressed Father Substance use disorder Brother Depression Anxiety Schizophrenia Social History marital status: household members: spouse lives independently: Yes housing: apartment occupational status: employed Previous occupational history: [employer] Smoking Status: Never smoker Smoking Status: Never smoker alcohol intake frequency: holidays/special occasions only Substance Use Type: does not use Exam <Areli Briones PA-C - Last Filed: 12/17/22 18:02> Narrative Exam Narrative: GENERAL: 22 year old patient appears stated age. Well-developed patient, in no distress. Affect slightly flat. NEURO: AOx3. HEAD: Atraumatic. Normocephalic. EYES: Pupils equal round and reactive. Extraocular motions intact. No scleral icterus. No injection or drainage. ENT: Nose without bleeding or purulent drainage. RESPIRATORY: No distress EXTREMITIES: No edema or joint tenderness. SKIN: No rash or erythema of visible areas Initial Vital Signs Initial Vital Signs: Vital Signs Temperature 98.5 F 12/17/22 14:45 Pulse Rate 86 12/17/22 14:45 Respiratory Rate 15 12/17/22 14:45 Blood Pressure 137/82 12/17/22 14:45 Pulse Oximetry 98 12/17/22 14:45 Oxygen Delivery Method Room Air 12/17/22 14:45 <Antonio Heard MD - Last Filed: 01/05/23 21:47> Initial Vital Signs Initial Vital Signs: Vital Signs Temperature 98.5 F 12/17/22 14:45 Pulse Rate 86 12/17/22 14:45 Respiratory Rate 15 12/17/22 14:45 Blood Pressure 137/82 12/17/22 14:45 Pulse Oximetry 98 12/17/22 14:45 Oxygen Delivery Method Room Air 12/17/22 14:45 Course <Areli Briones PA-C - Last Filed: 12/17/22 18:02> Orders Ordered: ED Orders 12/17/22 15:24 Consult to [facility] Auto Body Technician Stat 12/17/22 15:35 Urine Drug Screen, Rapid Stat Urine Microscopic Stat 12/17/22 15:37 Acetaminophen Stat Complete Blood Count AUTO DIFF Stat Comprehensive Metabolic Panel Stat Ethanol (ETOH) Stat Free T4, Direct Thyroxine Stat Salicylate Stat Thyroid Stimulating Hormone Stat Vital Signs Vital signs: Vital Signs - 8 hr 12/17/22 14:45 Temperature 98.5 F Pulse Rate 86 Respiratory Rate 15 Blood Pressure 137/82 Pulse Oximetry 98 Oxygen Delivery Method Room Air <Antonio Heard MD - Last Filed: 01/05/23 21:47> Orders Ordered: ED Orders 12/17/22 15:24 Consult to [facility] Auto Body Technician Stat 12/17/22 15:35 Urine Drug Screen, Rapid Stat Urine Microscopic Stat 12/17/22 15:37 Acetaminophen Stat Complete Blood Count AUTO DIFF Stat Comprehensive Metabolic Panel Stat Ethanol (ETOH) Stat Free T4, Direct Thyroxine Stat Salicylate Stat Thyroid Stimulating Hormone Stat Vital Signs Vital signs: Vital Signs - 8 hr 12/17/22 14:45 Temperature 98.5 F Pulse Rate 86 Respiratory Rate 15 Blood Pressure 137/82 Pulse Oximetry 98 Oxygen Delivery Method Room Air MDM - Psych <Areli Briones PA-C - Last Filed: 12/17/22 18:02> Lab Data 12/17/22 15:37 12/17/22 15:37 Labs: Lab Results 12/17/22 12/17/22 12/17/22 Range/Units 15:35 15:35 15:37 WBC 11.7 H (4.5-11.0) X10^3/uL RBC 4.59 (4.0-5.2) X10^6/uL Hgb 13.6 (12.0-16.0) g/dL Hct 39.5 (36-46) % MCV 85.9 (80-100) fL MCH 29.6 (26-34) PG MCHC 34.5 (30-36) % RDW 12.4 (11.6-14.8) % Plt Count 256 (150-400) X10^3/uL Neut % (Auto) 88.5 H (50-75) % Lymph % (Auto) 6.9 L (25-40) % [place] % (Auto) 4.2 (3-14) % Eos % (Auto) 0.2 L (2-4) % Baso % (Auto) 0.2 (0-2) % Neut # (Auto) 34250 H (6585-6107) /uL Lymph # (Auto) 800 L (1480-4313) /uL [place] # (Auto) 500 (0-900) /uL Eos # (Auto) 0 (0-450) /uL Baso # (Auto) 0 (0-100) /uL Sodium (137-145) mmol/L Potassium (3.4-5.1) mmol/L Chloride (98-107) mmol/L Carbon Dioxide (22-32) mmol/L BUN (7-17) mg/dL Creatinine (0.52-1.04) mg/dL Estimated GFR (>60) mL/min BUN/Creatinine Ratio (6-22) Glucose (70-100) mg/dL Calcium (8.4-10.2) mg/dL Total Bilirubin (0.2-1.3) mg/dL AST (14-36) IU/L ALT (<35) IU/L Alkaline Phosphatase (38-126) U/L Total Protein (6.3-8.2) g/dL Albumin (3.5-5.0) g/dL Globulin (1.7-4.1) g/dL Albumin/Globulin Ratio (1.0-2.8) TSH (0.47-4.68) uIU/mL Free T4 (0.78-2.19) ng/dL Urine RBC None seen (0-5/HPF) Urine WBC None seen (0-5/HPF) Ur Squamous Epith Cells 0-1 /hpf (0-5/HPF) Amorphous Sediment 3+ Urine Bacteria None seen (None) Salicylates (<20) mg/dL U Opiates 300ng/mL cut Negative (Negative) Ur Oxycodone Screen Negative (Negative) Urine Methadone Screen Negative (Negative) Acetaminophen (10-30) ug/mL Ur Barbiturates Screen Negative (Negative) U Tricyclic Antidepress Negative (Negative) Ur Phencyclidine Scrn Negative (Negative) Ur Amphetamines Screen Negative (Negative) U Methamphetamines Scrn Negative (Negative) Ur MDMA Scrn (Ecstasy) Negative (Negative) U Benzodiazepines Scrn Negative (Negative) Urine Cocaine Screen Negative (Negative) U Marijuana (THC) Screen Negative (Negative) Ethyl Alcohol ( - 10) mg/dL 12/17/22 12/17/22 Range/Units 15:37 15:37 WBC (4.5-11.0) X10^3/uL RBC (4.0-5.2) X10^6/uL Hgb (12.0-16.0) g/dL Hct (36-46) % MCV (80-100) fL MCH (26-34) PG MCHC (30-36) % RDW (11.6-14.8) % Plt Count (150-400) X10^3/uL Neut % (Auto) (50-75) % Lymph % (Auto) (25-40) % [place] % (Auto) (3-14) % Eos % (Auto) (2-4) % Baso % (Auto) (0-2) % Neut # (Auto) (8753-4381) /uL Lymph # (Auto) (4479-8978) /uL [place] # (Auto) (0-900) /uL Eos # (Auto) (0-450) /uL Baso # (Auto) (0-100) /uL Sodium 139 (137-145) mmol/L Potassium 3.7 (3.4-5.1) mmol/L Chloride 105 (98-107) mmol/L Carbon Dioxide 26 (22-32) mmol/L BUN 12 (7-17) mg/dL Creatinine 0.81 (0.52-1.04) mg/dL Estimated GFR > 60 (>60) mL/min BUN/Creatinine Ratio 14.8 (6-22) Glucose 113 H (70-100) mg/dL Calcium 8.7 (8.4-10.2) mg/dL Total Bilirubin 0.3 (0.2-1.3) mg/dL AST 36 (14-36) IU/L ALT 45 H (<35) IU/L Alkaline Phosphatase 85 (38-126) U/L Total Protein 7.5 (6.3-8.2) g/dL Albumin 4.6 (3.5-5.0) g/dL Globulin 2.9 (1.7-4.1) g/dL Albumin/Globulin Ratio 1.6 (1.0-2.8) TSH 1.13 (0.47-4.68) uIU/mL Free T4 1.13 (0.78-2.19) ng/dL Urine RBC (0-5/HPF) Urine WBC (0-5/HPF) Ur Squamous Epith Cells (0-5/HPF) Amorphous Sediment Urine Bacteria (None) Salicylates < 1.0 (<20) mg/dL U Opiates 300ng/mL cut (Negative) Ur Oxycodone Screen (Negative) Urine Methadone Screen (Negative) Acetaminophen < 10 (10-30) ug/mL Ur Barbiturates Screen (Negative) U Tricyclic Antidepress (Negative) Ur Phencyclidine Scrn (Negative) Ur Amphetamines Screen (Negative) U Methamphetamines Scrn (Negative) Ur MDMA Scrn (Ecstasy) (Negative) U Benzodiazepines Scrn (Negative) Urine Cocaine Screen (Negative) U Marijuana (THC) Screen (Negative) Ethyl Alcohol < 10 ( - 10) mg/dL Point of Care Testing Test Results Negative Urine Dip Bedside Urine Glucose Negative Bedside Urine Bilirubin - Negative Bedside Urine Ketone - Negative Urine Specific [place] 1.010 Bedside Urine Occult Blood +/- Bedside Urine pH 8.5 Bedside Urine Protein - Negative Bedside Urine Urobilinogen - Negative Bedside Urine Nitrite - Negative Bedside Urine Leukocytes - Negative Esterase MDM Narrative Medical decision making narrative: Multiple etiologies for patient's symptoms considered including, but not limited to: Panic attack, anxiety, depression, electrolyte abnormality, medication or drug side effect, drug toxicity. Labs without clinically significant abnormality. Patient with good awareness of the preceding situation and good insight into her underlying mental health challenges. She is attentive and carrying toward her baby and her partner while in the emergency room. Also evaluated by the social media marketer who agrees that she does not show any alarm symptoms requiring hospitalization and is safe for outpatient management. [place]. I will give her several days off of work in an work note and the social media marketer will provide with resources. Encouraged to follow up with [place]-base psychiatrist or psychologist if at all possible as she seems to have mistrust of the [employer] provider. Patient's symptoms improved over duration of stay with above-stated therapies. Findings and discharge diagnosis discussed with patient/family followed by verbalization of understanding Return precautions discussed with patient/family whom verbalize understanding of diagnosis and plan <Antonio Heard MD - Last Filed: 01/05/23 21:47> Lab Data Labs: Lab Results 12/17/22 12/17/22 12/17/22 Range/Units 15:35 15:35 15:37 WBC 11.7 H (4.5-11.0) X10^3/uL RBC 4.59 (4.0-5.2) X10^6/uL Hgb 13.6 (12.0-16.0) g/dL Hct 39.5 (36-46) % MCV 85.9 (80-100) fL MCH 29.6 (26-34) PG MCHC 34.5 (30-36) % RDW 12.4 (11.6-14.8) % Plt Count 256 (150-400) X10^3/uL Neut % (Auto) 88.5 H (50-75) % Lymph % (Auto) 6.9 L (25-40) % [place] % (Auto) 4.2 (3-14) % Eos % (Auto) 0.2 L (2-4) % Baso % (Auto) 0.2 (0-2) % Neut # (Auto) 43657 H (4969-0851) /uL Lymph # (Auto) 800 L (1085-9269) /uL [place] # (Auto) 500 (0-900) /uL Eos # (Auto) 0 (0-450) /uL Baso # (Auto) 0 (0-100) /uL Sodium (137-145) mmol/L Potassium (3.4-5.1) mmol/L Chloride (98-107) mmol/L Carbon Dioxide (22-32) mmol/L BUN (7-17) mg/dL Creatinine (0.52-1.04) mg/dL Estimated GFR (>60) mL/min BUN/Creatinine Ratio (6-22) Glucose (70-100) mg/dL Calcium (8.4-10.2) mg/dL Total Bilirubin (0.2-1.3) mg/dL AST (14-36) IU/L ALT (<35) IU/L Alkaline Phosphatase (38-126) U/L Total Protein (6.3-8.2) g/dL Albumin (3.5-5.0) g/dL Globulin (1.7-4.1) g/dL Albumin/Globulin Ratio (1.0-2.8) TSH (0.47-4.68) uIU/mL Free T4 (0.78-2.19) ng/dL Urine RBC None seen (0-5/HPF) Urine WBC None seen (0-5/HPF) Ur Squamous Epith Cells 0-1 /hpf (0-5/HPF) Amorphous Sediment 3+ Urine Bacteria None seen (None) Salicylates (<20) mg/dL U Opiates 300ng/mL cut Negative (Negative) Ur Oxycodone Screen Negative (Negative) Urine Methadone Screen Negative (Negative) Acetaminophen (10-30) ug/mL Ur Barbiturates Screen Negative (Negative) U Tricyclic Antidepress Negative (Negative) Ur Phencyclidine Scrn Negative (Negative) Ur Amphetamines Screen Negative (Negative) U Methamphetamines Scrn Negative (Negative) Ur MDMA Scrn (Ecstasy) Negative (Negative) U Benzodiazepines Scrn Negative (Negative) Urine Cocaine Screen Negative (Negative) U Marijuana (THC) Screen Negative (Negative) Ethyl Alcohol ( - 10) mg/dL 12/17/22 12/17/22 Range/Units 15:37 15:37 WBC (4.5-11.0) X10^3/uL RBC (4.0-5.2) X10^6/uL Hgb (12.0-16.0) g/dL Hct (36-46) % MCV (80-100) fL MCH (26-34) PG MCHC (30-36) % RDW (11.6-14.8) % Plt Count (150-400) X10^3/uL Neut % (Auto) (50-75) % Lymph % (Auto) (25-40) % [place] % (Auto) (3-14) % Eos % (Auto) (2-4) % Baso % (Auto) (0-2) % Neut # (Auto) (4917-3245) /uL Lymph # (Auto) (8222-9301) /uL [place] # (Auto) (0-900) /uL Eos # (Auto) (0-450) /uL Baso # (Auto) (0-100) /uL Sodium 139 (137-145) mmol/L Potassium 3.7 (3.4-5.1) mmol/L Chloride 105 (98-107) mmol/L Carbon Dioxide 26 (22-32) mmol/L BUN 12 (7-17) mg/dL Creatinine 0.81 (0.52-1.04) mg/dL Estimated GFR > 60 (>60) mL/min BUN/Creatinine Ratio 14.8 (6-22) Glucose 113 H (70-100) mg/dL Calcium 8.7 (8.4-10.2) mg/dL Total Bilirubin 0.3 (0.2-1.3) mg/dL AST 36 (14-36) IU/L ALT 45 H (<35) IU/L Alkaline Phosphatase 85 (38-126) U/L Total Protein 7.5 (6.3-8.2) g/dL Albumin 4.6 (3.5-5.0) g/dL Globulin 2.9 (1.7-4.1) g/dL Albumin/Globulin Ratio 1.6 (1.0-2.8) TSH 1.13 (0.47-4.68) uIU/mL Free T4 1.13 (0.78-2.19) ng/dL Urine RBC (0-5/HPF) Urine WBC (0-5/HPF) Ur Squamous Epith Cells (0-5/HPF) Amorphous Sediment Urine Bacteria (None) Salicylates < 1.0 (<20) mg/dL U Opiates 300ng/mL cut (Negative) Ur Oxycodone Screen (Negative) Urine Methadone Screen (Negative) Acetaminophen < 10 (10-30) ug/mL Ur Barbiturates Screen (Negative) U Tricyclic Antidepress (Negative) Ur Phencyclidine Scrn (Negative) Ur Amphetamines Screen (Negative) U Methamphetamines Scrn (Negative) Ur MDMA Scrn (Ecstasy) (Negative) U Benzodiazepines Scrn (Negative) Urine Cocaine Screen (Negative) U Marijuana (THC) Screen (Negative) Ethyl Alcohol < 10 ( - 10) mg/dL Point of Care Testing Test Results Negative Urine Dip Bedside Urine Glucose Negative Bedside Urine Bilirubin - Negative Bedside Urine Ketone - Negative Urine Specific [place] 1.010 Bedside Urine Occult Blood +/- Bedside Urine pH 8.5 Bedside Urine Protein - Negative Bedside Urine Urobilinogen - Negative Bedside Urine Nitrite - Negative Bedside Urine Leukocytes - Negative Esterase Discharge Plan Departure Patient Disposition: Home Clinical Impression: Depression, Acute anxiety Instructions: Anxiety and Panic Attacks (Alternative Therapy), DI for Panic Disorder Activity Restrictions/Additional Instructions: *You have been diagnosed with panic attack. I will give you a work note for several days off work. I suggest following up with your primary care to evaluate whether you could have a more extended medical leave. The social media marketer will provide you with several resources for mental health care and crisis care. If you continue to experience acute anxiety or panic attacks, please follow-up with your psychiatrist in regards to additional medication therapy. *What to do: *Please continue to take your regular medications as directed. [ ] New medication prescriptions sent to your pharmacy: [ ] [ ] New medication written as a paper prescription [x ] No new medications given *Please follow up with your primary care provider in 2-3 days, call for an appointment. Let them know you were seen in the Emergency Department and that we ask that you be seen in follow up. We will electronically transmit a record of today's note if your PCP is in our system *If you do not have a primary care provider please contact the [facility] Resource line at [phone]. They will ask some questions about your medical h istory and help get you set up with a doctor in the community. *Return to Emergency Department if you should have any new, worsening or concerning symptoms, such as [fever greater than 101 F, shaking chills, worsening pain, persistent vomiting or other bothersome symptoms] Prescriptions: No Action Vitamin 1 tab PO DAILY ibuprofen 600 mg Tablet 600 mg PO Q6HR PRN (Reason: pain) Qty: 60 0RF oxycodone 5 mg Tablet See Rx Instructions .ROUTE .COMPLEX PRN (Reason: Pain, Moderate (4-6)) Qty: 20 0RF Rx Instructions: 1-2 tablets every 4-6 hours as needed for pain. Maximum 6 tablets daily quetiapine 50 mg tablet 150 mg PO DAILY oxybutynin chloride 10 mg tablet extended release 24hr 10 mg PO DAILY Qty: 30 1RF doxycycline hyclate 100 mg capsule 100 mg PO BID Qty: 28 0RF metronidazole 500 mg tablet 500 mg PO BID Qty: 28 0RF Referrals: Provider,[facility] [Primary Care Provider] - Stand Alone Forms: Patient Portal/API, Work Release Note <Antonio Heard MD - Last Filed: 01/05/23 21:47> Cosign ED Attending Cosignature Attestation: I was immediately available in the department for consultation. This documentation has been reviewed and I agree with assessment and plan. Supervised by Antonio Heard MD
== END 2022-12-17 17:03 | disposition home or self-care (01) ==
PROVIDERS: Emergency Medicine; Emergency Provider Physician Assistant
DX: F41.9 Anxiety disorder, unspecified (principal); F32.A Depression, unspecified; R00.2 Palpitations
CPT/HCPCS: 80053; 80305; 80320; 80329; 81003; 81015; 81025; 84439; 84443; 85025; 99283; G0480

== ENCOUNTER 2022-12-30 10:24 | Emergency (ER) | payer OTHER, SELFPAY ==
[2022-12-30 10:37] VITALS: BP 114/69; PULSE 90; RESP 14; TEMP 36.4; O2SAT 99; BMI 26.6
[2022-12-30 11:01] LABS: Add Manual Diff / Slide Review NO; Basophils Absolute Auto 0 /uL (0-100); Basophils Percent Auto 0.2 % (0-2); Eosinophils Absolute Auto 100 /uL (0-450); Eosinophils Percent Auto 1.1 % (2-4); Hematocrit 40.1 % (36-46); Hemoglobin 14.1 g/dL (12.0-16.0); Lymphocytes Absolute Auto 1300 /uL (1100-4500); Lymphocytes Percent Auto 22.8 % (25-40); Mean Corpuscular Volume 85.7 fL (80-100); Monocytes Absolute Auto 300 /uL (0-900); Monocytes Percent Auto 6.1 % (3-14); Neutrophils Absolute Auto 4000 /uL (1500-7000); Neutrophils Percent Auto 69.8 % (50-75); Platelet Count 220 X10^3/uL (150-400); Red Blood Cell Count 4.69 X10^6/uL (4.0-5.2); Red Cell Distribution Width 12.6 % (11.6-14.8); White Blood Cell Count 5.7 X10^3/uL (4.5-11.0)
[2022-12-30 11:13] LABS: Alanine Aminotransferase 25 IU/L (<35); Albumin 4.6 g/dL (3.5-5.0); Albumin Globulin Ratio 1.4 (1.0-2.8); Alkaline Phosphatase 70 U/L (38-126); Aspartate Aminotransferase 26 IU/L (14-36); BUN Creatinine Ratio 14.9 (6-22); Bilirubin Total 0.3 mg/dL (0.2-1.3); Blood Urea Nitrogen 10 mg/dL (7-17); Calcium 9.9 mg/dL (8.4-10.2); Carbon Dioxide 27 mmol/L (22-32); Chloride 103 mmol/L (98-107); Estimated Glomerular Filt Rate > 60 mL/min (>60); Globulin 3.2 g/dL (1.7-4.1); Glucose 99 mg/dL (70-100); HEMOLYSIS < 15 (0-50); Lipase 78 U/L (23-300); Potassium 3.7 mmol/L (3.4-5.1); Sodium 138 mmol/L (137-145); Total Protein 7.8 g/dL (6.3-8.2)
--- NOTE | 2022-12-30 11:48 | DI.CT.S_ITS ---
PROCEDURE: CT ABDOMEN PELVIS W CON INDICATIONS: RLQ pain TECHNIQUE: After the administration of intravenous contrast, axial sections acquired from the lung bases to the pubic symphysis. Coronal and sagittal reformats were performed. For radiation dose reduction, the following was used: automated exposure control, adjustment of mA and/or kV according to patient size. COMPARISON: None. FINDINGS: Image quality: Good Lower chest: Unremarkable. Solid organs: The liver appears unremarkable. Gallbladder is unremarkable. No pathologic pancreatic ductal dilation or biliary ductal dilation. No splenomegaly. There is a left adrenal nodule measuring 1.1 centimeters (2/15). No hydronephrosis. Vessels and lymph nodes: The main portal vein is patent. No abdominal aortic aneurysm. No pathologic lymph nodes identified by size criteria. Bowel and peritoneum: No evidence of small bowel obstruction. Small amount pelvic free fluid is present. Moderate fecal loading is present. Appendix is not discretely seen. Body wall: Unremarkable Pelvis: Retroverted uterus with IUD. Prominent adnexal structures, not well evaluated on CT. Bones: No acute or suspicious osseous finding. IMPRESSION: Unable to definitely identify the appendix. If there is sufficient clinical concern, consider follow-up CT with oral contrast. Prominent adnexal structures, consider pelvic ultrasound to further evaluate the reproductive organs if needed. There is moderate fecal loading. Incidental left adrenal nodule measuring 1.1 centimeters, most commonly an adenoma, consider nonurgent adrenal protocol imaging for confirmation. Dictated by: Osmin Estrada M.D. on 12/30/2022 at 12:20 Approved by: Osmin Estrada M.D. on 12/30/2022 at 12:29
--- NOTE | 2022-12-30 12:40 | DI.US.S_ITS ---
PROCEDURE: US PELVIC COMPLETE INDICATIONS: RIGHT PELVIC PAIN TECHNIQUE: Real-time scanning was performed of the pelvic organs, with image documentation. Additional endovaginal scanning was necessary due to incomplete visualization of the adnexal and endometrial structures by transabdominal scanning. COMPARISON: [facility], CT, CT ABDOMEN PELVIS W CON, 12/30/2022, 11:55. [facility], US, US PELVIC COMPLETE, 12/08/2022, 20:24. FINDINGS: Uterus: Uterus is anteverted and normal in size at 5.5 x 3.9 x 6.1 cm. The myometrium is homogeneous. The endometrium measures 8.9 mm combined thickness. IUD is present in appropriate position. Ovaries: The right ovary measures 4.5 x 3.0 x 2.8 cm, with a calculated ovarian volume of 20.0 cc. The left ovary measures 3.2 x 2.2 x 2.0 cm, with a calculated ovarian volume of 7.2 cc. There is a 2.8 x 1.2 x 1.7 cm focus of heterogeneous echogenicity within the right ovary. Other: No pathologic free abdominal or pelvic fluid. IMPRESSION: Focus of heterogeneous echogenicity within the right ovary suggestive of collapsing cyst. Follow-up ultrasound in 6 weeks is recommended. We strive to produce accurate, complete, and clear reports of imaging services. To assist us in improving patient care, this report was composed using standard report templates and voice recognition software. Therefore, it may contain abnormal punctuation, insertions and/or omissions. Occasional wrong-word or sound-alike substitutions may occur. Though we review the report and make efforts to correct it, we do recommend that the report be read carefully in proper context to recognize any text inaccuracies. Dictated by: Inocencia Fenton M.D. on 12/30/2022 at 14:07 Approved by: Inocencia Fenton M.D. on 12/30/2022 at 14:09
--- NOTE | 2022-12-30 13:17 | PC.NURSE ---
Pt awake, alert, making eye contact with parents, interacting at baseline although subdued. Pt is in no apparent distress or discomfort. Parents at bedside.
[2022-12-30] MEDS: KETOROLAC 30 MG/ML VIAL 15 MG IV (14:11)
[2022-12-30 14:42] VITALS: BP 111/67; PULSE 82; RESP 16; TEMP 36.9; O2SAT 100
--- NOTE | 2022-12-30 14:43 | ED_ITS ---
HPI - Abdominal Pain <Lydia Lin PA-C - Last Filed: 12/30/22 14:50> General Chief Complaint: Abdominal Pain Stated Complaint: N/pain lower R T-0 Time Seen by Provider: 12/30/22 10:59 Source: patient Mode of arrival: Ambulatory History of Present Illness HPI narrative: 22-year-old female presents to the ED with 1 day of right lower quadrant pain, nausea, anorexia. Patient states that the pain started acutely this morning. Patient denies fever, chills, chest pain, shortness of breath, vomiting, dysuria, diarrhea, melena, hematochezia, lightheadedness, dizziness, syncope. Patient's last bowel movement was yesterday, she states that it was normal. Patient has had a , no other abdominal surgeries Related Data Home Medications Medication Instructions Recorded Confirmed Vitamin 1 tab PO DAILY 12/11/21 04/10/22 quetiapine 50 mg tablet 150 mg PO DAILY 12/08/22 12/08/22 Previous Rx's Medication Instructions Recorded ibuprofen 600 mg tablet 600 mg PO Q6HR PRN pain #60 tabs 04/13/22 oxycodone 5 mg tablet See Rx Instructions .Route 04/13/22 .COMPLEX PRN Pain, Moderate (4-6) #20 tabs doxycycline hyclate 100 mg capsule 100 mg PO BID #28 caps 12/08/22 metronidazole 500 mg tablet 500 mg PO BID #28 tabs 12/08/22 oxybutynin chloride 10 mg 10 mg PO DAILY #30 tabs 12/08/22 tablet,extended release 24 hr Allergies Allergy/AdvReac Type Severity Reaction Status Date / Time sumatriptan Allergy Severe Anaphylaxis Verified 12/30/22 10:40 nickel Allergy Rash Verified 12/30/22 10:37 Review of Systems <Lydia Lin PA-C - Last Filed: 12/30/22 14:50> Review of Systems ROS Unobtainable: All systems reviewed & are unremarkable except as noted in HPI and below Constitutional Constitutional: Denies chills, Denies fatigue, Denies fever(s), Denies frequent falls, Denies lethargy, Reports poor appetite and Denies weakness Eyes Eyes: Denies change in vision, Denies eye discharge, Denies irritation and Denies loss of vision ENT Ears, Nose, Mouth, and Throat: Denies change in voice, Denies dizziness, Denies neck pain, Denies sore throat and Denies throat swelling Cardiovascular Cardiovascular: Denies chest pain, Denies irregular heart rhythm, Denies lightheadedness, Denies palpitations, Denies dyspnea, Denies dyspnea on exertion and Denies orthopnea Respiratory Respiratory: Denies cough, Denies dyspnea, Denies dyspnea on exertion and Denies wheezing Gastrointestinal Gastrointestinal: Reports abdominal pain, Denies change in bowel habits, Denies diarrhea, Reports nausea and Denies vomiting Genitourinary Genitourinary: Denies hematuria, Denies flank pain, Denies urinary incontinence and Denies urinary urgency Musculoskeletal Musculoskeletal: Denies back pain, Denies muscle weakness, Denies neck pain, Denies numbness and Denies tingling Integumentary/Breasts Skin/Breast: Denies pruritus, Denies erythema, Denies rash and Denies wounds Neurologic Neurologic: Denies behavioral changes, Denies confusion, Denies dizziness, Denies frequent falls, Denies loss of vision, Denies numbness, Denies tingling and Denies weakness Psychiatric Psychiatric: Denies anxiety, Denies behavioral changes, Denies confusion, Denies depression, Denies homicidal ideation and Denies suicidal ideation Endocrine Endocrine: Denies fatigue, Denies flushing and Denies palpitations Hematologic/Lymphatic Hematologic/Lymphatic: Denies easy bruising Allergic/Immunologic Allergic/Immunologic: Denies urticaria, Denies throat swelling and Denies wheezing Patient History <Lydia Lin PA-C - Last Filed: 12/30/22 14:50> Medical History Bipolar II disorder COVID Migraine Patellar tendonitis of right knee Family History Mother Endometriosis Depression Bipolar affect, depressed Father Substance use disorder Brother Depression Anxiety Schizophrenia Social History marital status: household members: spouse lives independently: Yes housing: apartment occupational status: employed Previous occupational history: [employer] Smoking Status: Never smoker Smoking Status: Never smoker alcohol intake frequency: holidays/special occasions only Substance Use Type: does not use Exam <Lydia Lin PA-C - Last Filed: 12/30/22 14:50> Narrative Exam Narrative: Const General:?cooperative, healthy appearing and comfortable [facility] Head:?normal to inspection Ears:?hearing grossly normal bilaterally Nose:?external nose normal Face and sinus:?normal facial exam and sinuses nontender Mouth:?oral mucosae normal Throat:?posterior oropharynx normal Eyes General:?appearance normal, both eyes and all related structures Neck Neck:?normal visual inspection and no lymphadenopathy noted Resp Effort & Inspection:?normal respiratory effort Auscultation:?clear to auscultation bilaterally Cardio Rate:?regular rate Rhythm:?regular rhythm GI Abdomen is soft, nondistended. Abdomen is tender to palpation in the right lower quadrant. Neuro General:?patient alert, patient awake and patient oriented x3 Initial Vital Signs Initial Vital Signs: Vital Signs Temperature 97.6 F 12/30/22 10:37 Pulse Rate 90 12/30/22 10:37 Respiratory Rate 14 12/30/22 10:37 Blood Pressure 114/69 12/30/22 10:37 Pulse Oximetry 99 12/30/22 10:37 Oxygen Delivery Method Room Air 12/30/22 10:37 <Shanell Gray DO - Last Filed: 01/06/23 19:21> Initial Vital Signs Initial Vital Signs: Vital Signs Temperature 97.6 F 12/30/22 10:37 Pulse Rate 90 12/30/22 10:37 Respiratory Rate 14 12/30/22 10:37 Blood Pressure 114/69 12/30/22 10:37 Pulse Oximetry 99 12/30/22 10:37 Oxygen Delivery Method Room Air 12/30/22 10:37 Course <Lydia Lin PA-C - Last Filed: 12/30/22 14:50> Orders Ordered: Discontinued Medications Ketorolac Tromethamine (Ketorolac 30 Mg/Ml Vial) 15 mg IV NOW ONE Stop: 12/30/22 13:03 Last Admin: 12/30/22 14:11 Dose: 15 mg Documented By: MEEK Ondansetron HCl (Ondansetron 4 Mg/2 Ml Inj) 4 mg IV NOW PRN PRN Reason: Nausea And Vomiting Vital Signs Vital signs: Vital Signs - 8 hr 12/30/22 10:37 Temperature 97.6 F Pulse Rate 90 Respiratory Rate 14 Blood Pressure 114/69 Pulse Oximetry 99 Oxygen Delivery Method Room Air <DO Gerald Kay Last Filed: 01/06/23 19:21> Orders Ordered: Discontinued Medications Ketorolac Tromethamine (Ketorolac 30 Mg/Ml Vial) 15 mg IV NOW ONE Stop: 12/30/22 13:03 Last Admin: 12/30/22 14:11 Dose: 15 mg Documented By: MEEK Ondansetron HCl (Ondansetron 4 Mg/2 Ml Inj) 4 mg IV NOW PRN PRN Reason: Nausea And Vomiting Vital Signs Vital signs: Vital Signs - 8 hr 12/30/22 10:37 Temperature 97.6 F Pulse Rate 90 Respiratory Rate 14 Blood Pressure 114/69 Pulse Oximetry 99 Oxygen Delivery Method Room Air MDM - Abdominal Pain <Lydia Lin PA-C - Last Filed: 12/30/22 14:50> Lab Data 12/30/22 10:48 12/30/22 10:48 Labs: Lab Results 12/30/22 12/30/22 Range/Units 10:48 10:48 WBC 5.7 (4.5-11.0) X10^3/uL RBC 4.69 (4.0-5.2) X10^6/uL Hgb 14.1 (12.0-16.0) g/dL Hct 40.1 (36-46) % MCV 85.7 (80-100) fL MCH 30.0 (26-34) PG MCHC 35.0 (30-36) % RDW 12.6 (11.6-14.8) % Plt Count 220 (150-400) X10^3/uL Neut % (Auto) 69.8 (50-75) % Lymph % (Auto) 22.8 L (25-40) % [place] % (Auto) 6.1 (3-14) % Eos % (Auto) 1.1 L (2-4) % Baso % (Auto) 0.2 (0-2) % Neut # (Auto) 4000 (3193-3365) /uL Lymph # (Auto) 1300 (2309-0019) /uL [place] # (Auto) 300 (0-900) /uL Eos # (Auto) 100 (0-450) /uL Baso # (Auto) 0 (0-100) /uL Sodium 138 (137-145) mmol/L Potassium 3.7 (3.4-5.1) mmol/L Chloride 103 (98-107) mmol/L Carbon Dioxide 27 (22-32) mmol/L BUN 10 (7-17) mg/dL Creatinine 0.67 (0.52-1.04) mg/dL Estimated GFR > 60 (>60) mL/min BUN/Creatinine Ratio 14.9 (6-22) Glucose 99 (70-100) mg/dL Calcium 9.9 (8.4-10.2) mg/dL Total Bilirubin 0.3 (0.2-1.3) mg/dL AST 26 (14-36) IU/L ALT 25 (<35) IU/L Alkaline Phosphatase 70 (38-126) U/L Total Protein 7.8 (6.3-8.2) g/dL Albumin 4.6 (3.5-5.0) g/dL Globulin 3.2 (1.7-4.1) g/dL Albumin/Globulin Ratio 1.4 (1.0-2.8) Lipase 78 (23-300) U/L Point of care testing: Point of Care Testing Test Results Negative Urine Dip Bedside Urine Glucose Negative Bedside Urine Bilirubin - Negative Bedside Urine Ketone - Negative Urine Specific [place] 1.020 Bedside Urine Occult Blood - Negative Bedside Urine pH 6.0 Bedside Urine Protein - Negative Bedside Urine Urobilinogen - Negative Bedside Urine Nitrite - Negative Bedside Urine Leukocytes - Negative Esterase MDM Narrative Medical decision making narrative: 22-year-old female presents to the ED with 1 day of right lower quadrant pain, nausea, anorexia. Patient states that the pain started acutely this morning. Concern for appendicitis versus ruptured ovarian cyst versus intrauterine versus ectopic versus constipation versus other intra- abdominal pathology versus other. Will obtain labs, lipase, CT abdomen pelvis. Will give ketorolac for pain. Will reassess. Patient's pain improved with ketorolac. CT abdomen pelvis was unable to characterize the appendix, did identify some prominent adnexal structures. Pelvic ultrasound was obtained for further characterization of the adnexal structures. Ultrasound shows a focus of heterogenous echogenicity within the right ovary suggestive of a collapsing cyst. No pathologic free abdominal or pelvic fluid. Labs are within normal limits. UA without UTI. UA hCG negative. Discussed findings with patient. Patient agrees to monitor her symptoms and return to the ED if she has worsening symptoms including worsening abdominal pain, vomiting, fever, chills. Recommend follow-up with PCP. Medical records reviewed: Yes <Shanell DO Marina - Last Filed: 01/06/23 19:21> Lab Data Labs: Lab Results 12/30/22 12/30/22 Range/Units 10:48 10:48 WBC 5.7 (4.5-11.0) X10^3/uL RBC 4.69 (4.0-5.2) X10^6/uL Hgb 14.1 (12.0-16.0) g/dL Hct 40.1 (36-46) % MCV 85.7 (80-100) fL MCH 30.0 (26-34) PG MCHC 35.0 (30-36) % RDW 12.6 (11.6-14.8) % Plt Count 220 (150-400) X10^3/uL Neut % (Auto) 69.8 (50-75) % Lymph % (Auto) 22.8 L (25-40) % [place] % (Auto) 6.1 (3-14) % Eos % (Auto) 1.1 L (2-4) % Baso % (Auto) 0.2 (0-2) % Neut # (Auto) 4000 (2026-0655) /uL Lymph # (Auto) 1300 (9569-1261) /uL [place] # (Auto) 300 (0-900) /uL Eos # (Auto) 100 (0-450) /uL Baso # (Auto) 0 (0-100) /uL Sodium 138 (137-145) mmol/L Potassium 3.7 (3.4-5.1) mmol/L Chloride 103 (98-107) mmol/L Carbon Dioxide 27 (22-32) mmol/L BUN 10 (7-17) mg/dL Creatinine 0.67 (0.52-1.04) mg/dL Estimated GFR > 60 (>60) mL/min BUN/Creatinine Ratio 14.9 (6-22) Glucose 99 (70-100) mg/dL Calcium 9.9 (8.4-10.2) mg/dL Total Bilirubin 0.3 (0.2-1.3) mg/dL AST 26 (14-36) IU/L ALT 25 (<35) IU/L Alkaline Phosphatase 70 (38-126) U/L Total Protein 7.8 (6.3-8.2) g/dL Albumin 4.6 (3.5-5.0) g/dL Globulin 3.2 (1.7-4.1) g/dL Albumin/Globulin Ratio 1.4 (1.0-2.8) Lipase 78 (23-300) U/L Point of care testing: Point of Care Testing Test Results Negative Urine Dip Bedside Urine Glucose Negative Bedside Urine Bilirubin - Negative Bedside Urine Ketone - Negative Urine Specific [place] 1.020 Bedside Urine Occult Blood - Negative Bedside Urine pH 6.0 Bedside Urine Protein - Negative Bedside Urine Urobilinogen - Negative Bedside Urine Nitrite - Negative Bedside Urine Leukocytes - Negative Esterase Discharge Plan Departure Patient Disposition: Home Clinical Impression: Abdominal pain Instructions: DI for Abdominal Pain-Adult Activity Restrictions/Additional Instructions: You were evaluated in the ED today for abdominal pain. The CT was unable to identify your appendix today. The ultrasound does show a collapsing cyst in right ovary. It is possible that this is contributing to your symptoms. However, please monitor your symptoms and return to the ED if you have worsening abdominal pain, fever, vomiting so we can re-evaluate you. Please follow-up with your OBGYN to follow-up on the ovarian cyst. Prescriptions: No Action Vitamin 1 tab PO DAILY ibuprofen 600 mg Tablet 600 mg PO Q6HR PRN (Reason: pain) Qty: 60 0RF oxycodone 5 mg Tablet See Rx Instructions .ROUTE .COMPLEX PRN (Reason: Pain, Moderate (4-6)) Qty: 20 0RF Rx Instructions: 1-2 tablets every 4-6 hours as needed for pain. Maximum 6 tablets daily quetiapine 50 mg tablet 150 mg PO DAILY oxybutynin chloride 10 mg tablet extended release 24hr 10 mg PO DAILY Qty: 30 1RF doxycycline hyclate 100 mg capsule 100 mg PO BID Qty: 28 0RF metronidazole 500 mg tablet 500 mg PO BID Qty: 28 0RF Referrals: Provider,Margot WARE [Primary Care Provider] - Stand Alone Forms: Patient Portal/API <Shanell Gray DO - Last Filed: 01/06/23 19:21> Cosign ED Attending Kyrieature Attestation: I was immediately available in the department for consultation. Documentation has been reviewed.
== END 2022-12-30 14:44 | disposition home or self-care (01) ==
PROVIDERS: Emergency Medicine; Emergency Provider Student in an Organized Health Care Education/Training Program
DX: R10.31 Right lower quadrant pain (principal); R11.2 Nausea with vomiting, unspecified
CPT/HCPCS: 36415; 74177; 76830; 76856; 80053; 81003; 81025; 83690; 85025; 93976; 96374; 99284; J1885

== ENCOUNTER → 2023-01-23 15:53 | Outpatient (CLI) | payer OTHER, SELFPAY ==
--- NOTE | 2023-01-23 15:54 | DI.CT.S_ITS ---
PROCEDURE: CT ABDOMEN PELVIS WO/W CON INDICATIONS: Persistent microscopic hematuria TECHNIQUE: After the administration of oral contrast, 5 mm thick sections acquired from the diaphragms to the iliac crests. After the administration of intravenous contrast, 5 mm thick sections acquired from the diaphragms to the symphysis. 5 mm thick coronal and sagittal reformats were acquired. For radiation dose reduction, the following was used: automated exposure control, adjustment of mA and/or kV according to patient size. COMPARISON: [facility], US, US PELVIC COMPLETE, 12/30/2022, 12:54. [facility], CT, CT ABDOMEN PELVIS W CON, 12/30/2022, 11:55. FINDINGS: Image quality: Excellent. ABDOMEN: Lung bases: Lung bases are clear. Heart size is normal. Solid organs: Liver is normal in size and enhancement. Gallbladder is decompressed . Biliary system is non-dilated. Pancreas enhances normally. Spleen is normal in size and enhancement. There is an oval 1.1 cm nodule associated with the left adrenal gland medial limb which demonstrates indeterminate absolute and relative washout postcontrast. No other adrenal nodules. Both kidneys are normal in size. No hydronephrosis or nephrolithiasis. Symmetric parenchymal enhancement and excretion of IV contrast. Opacified calices and proximal ureters are normal. Left mid to distal ureters not opacified. Right distal ureters not opacified. No ureteral calcifications. Bowel and peritoneum: Stomach, small and large bowel loops are normal in caliber and wall thickness. No free fluid or air. Normal appendix. Nodes and vessels: No retroperitoneal or mesenteric adenopathy by size criteria. Aorta and inferior vena are normal in caliber. Miscellaneous: No ventral hernias. PELVIS: Genitourinary: Bladder wall thickness is normal. No bladder calcifications or masses. Retroverted uterus contains a fundal T-shaped IUD. Both ovaries have a normal CT appearance. Miscellaneous: No inguinal hernias or adenopathy. Bones: No suspicious bony lesions. No vertebral body compression fractures. IMPRESSION: 1. No explanation for micro hematuria. No urinary calcification or obstruction. 2. 1.1 cm ovoid left adrenal nodule remains indeterminate. It is at the lower size limit of what is able to be well characterized by CT. 3. Uterine IUD present. Dictated by: Mamta Jaime M.D. on 01/23/2023 at 23:05 Approved by: Mamta Jaime M.D. on 01/23/2023 at 23:21
== END ==
PROVIDERS: Referring Provider Urology; Visit Provider Urology
DX: R31.29 Other microscopic hematuria (principal); E27.9 Disorder of adrenal gland, unspecified; Z97.5 Presence of (intrauterine) contraceptive device
CPT/HCPCS: 74178; Q9967

== ENCOUNTER 2023-06-03 22:05 | Emergency (ER) | payer OTHER, SELFPAY ==
--- NOTE | 2023-06-03 22:07 | ED.GENADULT ---
HPI - General Adult General Chief complaint: Urogenital-Female Stated complaint: sent for an IUD check Time Seen by Provider: 06/03/23 22:07 History of Present Illness HPI narrative: 23-year-old female presents with and infant at the request of her registered nurse midwife for evaluation of pelvic pain. She had a copper IUD placed about 1 year ago and self administers weekly intravaginal hormone. She started having severe pelvic pain yesterday which has greatly improved but still continues to be slightly uncomfortable. She has had some mild whitish discharge off and on for the past week, no foul smell, no yellow or bleeding. No dysuria, frequency or urgency. No back pain, fever or chills. Related Data Home Medications Medication Instructions Recorded Confirmed Vitamin 1 tab PO DAILY 12/11/21 01/30/23 quetiapine 50 mg tablet 150 mg PO DAILY 12/08/22 01/30/23 Previous Rx's Medication Instructions Recorded ibuprofen 600 mg tablet 600 mg PO Q6HR PRN pain #60 tabs 04/13/22 oxycodone 5 mg tablet See Rx Instructions .Route 04/13/22 .COMPLEX PRN Pain, Moderate (4-6) #20 tabs metronidazole 500 mg tablet 500 mg PO BID #28 tabs 12/08/22 oxybutynin chloride 10 mg 10 mg PO DAILY #30 tabs 12/08/22 tablet,extended release 24 hr Allergies Allergy/AdvReac Type Severity Reaction Status Date / Time sumatriptan Allergy Severe Anaphylaxis Verified 01/30/23 13:17 nickel Allergy Rash Verified 01/30/23 13:17 Review of Systems Review of Systems Narrative: GENERAL: Denies chills, fatigue, malaise, fever, sweats. HEENT: Denies sinus pain, ear pain, sore throat, difficulty swallowing, dizziness. RESPIRATORY: Denies dyspnea, cough, wheezing, hemoptysis, sputum. CARDIOVASCULAR: Denies chest pain, palpitations, orthopnea, edema, GASTROINTESTINAL: Denies nausea, vomiting, abdominal pain, diarrhea, constipation, melena. : See HPI MUSCULOSKELETAL: denies weakness, joint pain, or bony pain SKIN: Denies rash, skin lesions, or other NEUROLOGIC: Denies weakness, headache, numbness, change in speech, confusion, seizures, incoordination. PSYCHIATRIC: No concerning psychosocial issues. 12 point review of systems is negative except for those stated above Patient History Medical History Trauma in childhood Feeling of incomplete bladder emptying Persistent microscopic hematuria Patellar tendonitis of right knee Bipolar II disorder Migraine COVID Family History Mother Endometriosis Depression Bipolar affect, depressed Father Substance use disorder Brother Depression Anxiety Schizophrenia Social History marital status: household members: spouse lives independently: Yes housing: apartment occupational status: employed Previous occupational history: [employer] Smoking Status: Never smoker Smoking Status: Never smoker alcohol intake frequency: holidays/special occasions only Substance Use Type: does not use Exam Narrative Exam Narrative: GENERAL: [23] year old patient appears stated age. Well-developed patient, in mild distress. HEAD: Atraumatic. Normocephalic. EYES: Pupils equal round and reactive. Extraocular motions intact. No scleral icterus. No injection or drainage. ENT: Nose without bleeding, purulent drainage. Throat without erythema, tonsillar hypertrophy or exudate. Airway patent. NECK: Trachea midline. Non tender CARDIOVASCULAR: Regular rate and rhythm without murmurs, gallops, or rubs. RESPIRATORY: Clear to auscultation. Breath sounds equal bilaterally. No wheezes, rales, or rhonchi. GASTROINTESTINAL: Abdomen soft, non-tender, nondistended. PELVIC: scant whitish discharge, IUD strings seen EXTREMITIES: No edema or joint tenderness. BACK: Nontender without deformity or crepitance. No flank tenderness. NEURO: AOx3. SKIN: No rash or erythema of visible areas Initial Vital Signs Initial Vital Signs: Vital Signs Temperature 97.6 F 06/03/23 22:08 Pulse Rate 81 06/03/23 22:08 Respiratory Rate 18 06/03/23 22:08 Blood Pressure 130/78 06/03/23 22:08 Pulse Oximetry 99 06/03/23 22:08 Oxygen Delivery Method Room Air 06/03/23 22:08 Course Orders Ordered: ED Orders 06/03/23 22:12 Urine Culture Stat Urine Microscopic Stat 06/03/23 22:21 US pelvic complete Stat 06/03/23 23:35 Genital Culture Stat Wet Prep Tric BV Ariane Stat 06/04/23 00:02 Chlamydia/Gonoc/Myco Genital Stat Consultations Consultation #1: Discussed with patient's registered nurse midwife (Aimee FALCON). Happy with ultrasound confirming appropriate placement of IUD, no indication to remove at this time, antibiotics pending cultures. Vital Signs Vital signs: Vital Signs - 8 hr 06/03/23 22:08 Temperature 97.6 F Pulse Rate 81 Respiratory Rate 18 Blood Pressure 130/78 Pulse Oximetry 99 Oxygen Delivery Method Room Air Medical Decision Making Lab Data Labs: Lab Results 06/03/23 Range/Units 22:12 Urine RBC None seen (0-5/HPF) Urine WBC 0-1/hpf (0-5/HPF) Ur Squamous Epith Cells 5-10 /hpf H (0-5/HPF) Urine Bacteria Moderate (10-30) H (None) Urine Mucus 1+ H (Negative) Vol Urine Centrifuged 10ml (spun) Point of Care Testing Test Results Negative Urine Dip Bedside Urine Glucose Negative Bedside Urine Bilirubin - Negative Bedside Urine Ketone - Negative Urine Specific [place] 1.030 Bedside Urine Occult Blood - Negative Bedside Urine pH 6.0 Bedside Urine Protein - Negative Bedside Urine Urobilinogen - Negative Bedside Urine Nitrite - Negative Bedside Urine Leukocytes +/- 15 Esterase Point of care testing: Point of Care Testing Test Results Negative Urine Dip Bedside Urine Glucose Negative Bedside Urine Bilirubin - Negative Bedside Urine Ketone - Negative Urine Specific [place] 1.030 Bedside Urine Occult Blood - Negative Bedside Urine pH 6.0 Bedside Urine Protein - Negative Bedside Urine Urobilinogen - Negative Bedside Urine Nitrite - Negative Bedside Urine Leukocytes +/- 15 Esterase MDM Narrative Medical decision making narrative: [23] year old patient presents with episodes of pelvic pain and occasional discharge Multiple etiologies for patient's symptoms considered including, but not limited to: [IUD abnormality including dislodgement versus perforated uterus versus infectious process versus other] Prior Charts reviewed in our EMR Primary Historian: patient Labs reviewed and interpreted by myself: No significant abnormalities Imaging reviewed: Appropriate placement of IUD Consultations: Appraisal Analyst as noted above Patient's symptoms improved over duration of stay with above-stated therapies. Findings and discharge diagnosis discussed with patient/family followed by verbalization of understanding Return precautions discussed with patient/family whom verbalize understanding of diagnosis and plan Discharge Plan Departure Patient Disposition: Home Clinical Impression: Pelvic cramping Instructions: DI for Pelvic Pain Activity Restrictions/Additional Instructions: *You have been diagnosed with [pelvic cramping. As we discussed your urine shows no obvious sign of infection in the ultrasound confirms that the IUD is in the appropriate place. We have obtained cultures that will take a few days to produce results and you will be notified if any further treatment is needed.] *What to do: *Please continue to take your regular medications as directed. [ ] New medication prescriptions sent to your pharmacy: [ ] [ ] New medication written as a paper prescription [ ] No new medications given *Please follow up with your registered nurse midwife on Thursday as planned *Return to Emergency Department if you should have any new, worsening or concerning symptoms, such as [fever greater than 101 F, shaking chills, worsening pain, persistent vomiting or other bothersome symptoms] Prescriptions: No Action Vitamin 1 tab PO DAILY ibuprofen 600 mg Tablet 600 mg PO Q6HR PRN (Reason: pain) Qty: 60 0RF oxycodone 5 mg Tablet See Rx Instructions .ROUTE .COMPLEX PRN (Reason: Pain, Moderate (4-6)) Qty: 20 0RF Rx Instructions: 1-2 tablets every 4-6 hours as needed for pain. Maximum 6 tablets daily quetiapine 50 mg tablet 150 mg PO DAILY oxybutynin chloride 10 mg tablet extended release 24hr 10 mg PO DAILY Qty: 30 1RF metronidazole 500 mg tablet 500 mg PO BID Qty: 28 0RF Referrals: ProviderMargot [Primary Care Provider] - Stand Alone Forms: Patient Portal/API
[2023-06-03 22:08] VITALS: BP 130/78; PULSE 81; RESP 18; TEMP 36.4; O2SAT 99; BMI 28.3
--- NOTE | 2023-06-03 22:21 | DI.US.S_ITS ---
PROCEDURE: US PELVIC COMPLETE INDICATIONS: PAIN; CHECK IUD PLACEMENT TECHNIQUE: Real-time scanning was performed of the pelvic organs, with image documentation. Additional endovaginal scanning was necessary due to incomplete visualization of the adnexal and endometrial structures by transabdominal scanning. COMPARISON: [facility], US, US PELVIC COMPLETE, 12/30/2022, 12:54. FINDINGS: Uterus: Uterus is retroverted and normal in size at 7.4 x 3.9 x 5.2 cm. The myometrium is homogeneous. The endometrium measures 7.2 mm combined thickness. Note is made of an IUD within the uterine cavity. Ovaries: The right ovary measures 2.7 x 4.1 x 1.7 cm, with a calculated ovarian volume of 10.2 cc. The left ovary measures 1.9 x 3.3 x 2.0 cm, with a calculated ovarian volume of 6.5 cc. The ovaries have a normal sonographic appearance. Less than 12 follicles can be seen in each ovary. Note is made of a 1.6 cm simple cyst in the right ovary. No adnexal masses are seen. Other: No pathologic free abdominal or pelvic fluid. IMPRESSION: 1. IUD is in expected position within the uterine cavity. We strive to produce accurate, complete, and clear reports of imaging services. To assist us in improving patient care, this report was composed using standard report templates and voice recognition software. Therefore, it may contain abnormal punctuation, insertions and/or omissions. Occasional wrong-word or sound-alike substitutions may occur. Though we review the report and make efforts to correct it, we do recommend that the report be read carefully in proper context to recognize any text inaccuracies. Dictated by: Maged Boswell M.D. on 06/04/2023 at 0:06 Approved by: Maged Boswell M.D. on 06/04/2023 at 0:08
[2023-06-03 22:36] LABS: Urine Volume 10mL (spun)
[2023-06-03 22:43] LABS: Bacteria Urine Moderate (10-30); RBC Urine None Seen (0-5/HPF); Squamous Epithelial Cell Urine 5-10 /HPF (0-5/HPF); WBC Urine 0-1/HPF (0-5/HPF)
[2023-06-03 22:44] LABS: Mucus Urine 1+ (Negative)
[2023-06-09 08:48] LABS: Chlamydia trachomatis Negative (Negative); Mycoplasma genitalium Negative (Negative); Neisseria gonorrhoeae Negative (Negative)
== END 2023-06-04 00:08 | disposition home or self-care (01) ==
PROVIDERS: Emergency Provider Emergency Medicine
DX: R10.2 Pelvic and perineal pain (principal); Z97.5 Presence of (intrauterine) contraceptive device
CPT/HCPCS: 76830; 76856; 81003; 81015; 81025; 87070; 87086; 87147; 87205; 87210; 87491; 87563; 87591; 99282; 99283